=== PATIENT | male | born 1960 | race African-American/Black ===

== ENCOUNTER 2016-10-19 12:38 | Inpatient (IN) | payer OTHER ==
[~2016-10-19] VITALS: Ht 180.3 cm; Wt 93.7 kg
[~2016-10-19 12:38] MED LIST: AMLO-512 PO; ATOR40TA28 PO; GABA-531 PO; GLYB5 PO; LISI-618 PO; OXYC-165 PO
[2016-10-19] MEDS ORDERED: METF500T4 PO (13:00)
[2016-10-19 13:02] LABS: GLUCOSE,POINT OF CARE 469 MG/DL (70-110)
[2016-10-19] MEDS ORDERED: AMPICILLIN SODIUM/SULBACTAM NA 3 GM in SODIUM CHLORIDE 0.9% 100 ML IV ONE (13:30)
[2016-10-19] MEDS ORDERED: ACETAMINOPHEN 1000 MG/ISO-OSM 100 ML IV ONE (14:00)
[2016-10-19] MEDS ORDERED: INSULIN REGULAR, HUMAN 100 UNITS/ML IVP ONE (14:00)
[2016-10-19] MEDS ORDERED: SODIUM CHLORIDE 0.9% 1,000 ML IV ONE (14:00)
[2016-10-19 14:03] LABS: BASOPHILS % (AUTO) 0.5 % (0.0-2.0); EOSINOPHILS % (AUTO) 0.8 % (1.0-6.0); HEMATOCRIT 45.7 % (41-53); LYMPHOCYTES # (AUTO) 3.1 K/uL (1.0-4.8); LYMPHOCYTES % (AUTO) 26.2 % (22.0-44.0); MEAN CORPUSCULAR HEMOGLOBIN 31.4 pg (26.0-34.0); MEAN CORPUSCULAR HGB CONC 32.8 G/dL (31.0-37.0); MEAN CORPUSCULAR VOLUME 96 fL (80-100); MONOCYTES # (AUTO) 0.8 K/uL (0.1-1.0); MONOCYTES % (AUTO) 6.8 % (2.0-9.0); NEUTROPHILS # (AUTO) 7.8 K/uL (1.8-7.7); NEUTROPHILS % (AUTO) 65.7 % (40.0-70.0); PLATELET COUNT (AUTO) 242 K/uL (150-450); RED BLOOD CELL COUNT(AUTO) 4.77 MIL/uL (4.50-5.90); RED CELL DISTRIBUTION WIDTH 13.8 % (11.5-14.5); WHITE BLOOD COUNT (AUTO) 11.9 K/uL (4.5-11.0)
[2016-10-19 14:12] LABS: ALBUMIN 2.8 g/dL (3.4-5.0); BILIRUBIN,TOTAL 0.2 mg/dL (0.1-1.0); CALCIUM, TOTAL 9.1 mg/dL (8.8-10.5); CREATININE 1.64 mg/dL (0.60-1.30); POTASSIUM 4.5 mmol/L (3.5-5.1); TOTAL PROTEIN, SERUM 7.3 g/dL (6.4-8.2)
[2016-10-19] MEDS ORDERED: ACETAMINOPHEN 325 MG TABLET PO PRN ×2 (15:30→19:30)
[2016-10-19] MEDS ORDERED: INSULIN REGULAR, HUMAN 100 UNITS/ML SQ PRN (15:30)
[2016-10-19] MEDS ORDERED: ONDANSETRON HCL 4 MG/2 ML VIAL IVP PRN ×2 (15:30→19:30)
[2016-10-19] MEDS ORDERED: DEXTROSE 50%-WATER 25 GM/50 ML SYRINGE IVP PRN ×2 (15:30→19:30)
[2016-10-19 15:32] LABS: GLUCOSE,POINT OF CARE 219 MG/DL (70-110)
[2016-10-19 16:27] LABS: GLUCOSE,POINT OF CARE 171 MG/DL (70-110)
[2016-10-19 16:49] VITALS: BP 148/87
[2016-10-19 19:26] VITALS: BP 143/89
[2016-10-19] MEDS ORDERED: ALBUTEROL SULFATE 2.5 MG/0.5 ML NEB SOLUTION NEB PRN (19:30)
[2016-10-19] MEDS ORDERED: MORPHINE SULFATE 2 MG/ML SYRINGE IVP PRN (19:30)
[2016-10-19] MEDS ORDERED: MAGNESIUM HYDROXIDE SUSPENSION 30 ML UDCUP PO PRN (19:30)
[2016-10-19] MEDS ORDERED: BISACODYL 10 MG RECTAL RECTAL SUPPOSITORY PR PRN (19:30)
[2016-10-19] MEDS ORDERED: IPRATROPIUM BROMIDE 0.5 MG/2.5 ML NEB SOLUTION NEB PRN (19:30)
[2016-10-19] MEDS ORDERED: ZOLPIDEM TARTRATE 5 MG TABLET PO PRN (19:30)
[2016-10-19] MEDS ORDERED: SODIUM CHLORIDE 0.9% 500 ML IV ONE (20:18)
[2016-10-19] MEDS: DOCUSATE SODIUM 100 MG CAPSULE PO SCH (20:26)
[2016-10-19] MEDS: PIPERACILLIN/TAZO 3.375 GM/D5W 50 ML IV SCH (20:26)
[2016-10-19] MEDS: HYDROCODONE/ACETAMINOPHEN 5-325 MG TABLET PO PRN (20:27)
[2016-10-19] MEDS: INSULIN ASPART 100 UNITS/ML SQ PRN (20:30)
[2016-10-19] MEDS: INSULIN DETEMIR 100 UNITS/ML SQ SCH (20:30)
[2016-10-19 20:52] LABS: GLUCOSE COMMENT 1 Received Meds; GLUCOSE,POINT OF CARE 190 MG/DL (70-110)
[2016-10-19 23:02] VITALS: BP 140/88
[2016-10-20] MEDS ORDERED: HEPARIN SODIUM,PORCINE 5,000 UNITS/ML VIAL SQ SCH
[2016-10-20] MEDS: PIPERACILLIN/TAZO 3.375 GM/D5W 50 ML IV SCH ×2 (02:04→09:00)
[2016-10-20 04:14] VITALS: BP 138/70
[2016-10-20] MEDS: INSULIN ASPART 100 UNITS/ML SQ PRN ×4 (05:51→20:09)
[2016-10-20 05:57] LABS: GLUCOSE COMMENT 1 Received Meds; GLUCOSE,POINT OF CARE 174 MG/DL (70-110)
[2016-10-20 07:25] VITALS: BP 143/84
[2016-10-20] MEDS: OXYGEN THERAPY IH SCH (08:00)
[2016-10-20] MEDS: PANTOPRAZOLE SODIUM 40 MG/VIAL IVP SCH (08:09)
[2016-10-20] MEDS: DOCUSATE SODIUM 100 MG CAPSULE PO SCH ×2 (08:15→19:55)
[2016-10-20] MEDS ORDERED: SODIUM CHLORIDE 0.9% 1,000 ML IV ONE ×4 (08:30→09:45)
[2016-10-20] MEDS ORDERED: LIDOCAINE HCL/PF 1% 30 ML VIAL ONE (09:07)
[2016-10-20] MEDS ORDERED: BUPIVACAINE HCL/PF 0.5% 30 ML VIAL ONE (09:08)
[2016-10-20] MEDS ORDERED: BACITRACIN 50,000 UNITS/VIAL ONE ×2 (09:20→09:45)
[2016-10-20] MEDS ORDERED: SODIUM CHLORIDE 0.9% 10 ML ONE ×2 (09:20→09:45)
[2016-10-20] MEDS ORDERED: MEPERIDINE-PF 25 MG/ML SYRINGE IVP PRN (09:30)
[2016-10-20] MEDS ORDERED: HYDROmorphone 2 MG/ML SYRINGE IVP PRN (09:30)
[2016-10-20] MEDS ORDERED: FentaNYL CITRATE-PF 100 MCG/2 ML VIAL IVP PRN (09:30)
[2016-10-20] MEDS ORDERED: OxyCODONE HCL/ACETAMINOPHEN 5-325 MG TABLET PO PRN (10:00)
[2016-10-20 10:58] VITALS: BP 127/78
[2016-10-20] MEDS: HYDROCODONE/ACETAMINOPHEN 5-325 MG TABLET PO PRN ×2 (14:46→19:56)
[2016-10-20 15:15] VITALS: BP 143/69
[2016-10-20] MEDS: GABAPENTIN 300 MG CAPSULE PO SCH ×2 (16:30→19:55)
[2016-10-20 17:32] LABS: GLUCOSE,POINT OF CARE 183 MG/DL (70-110)
[2016-10-20 17:37] LABS: GLUCOSE COMMENT 1 Received Meds; GLUCOSE,POINT OF CARE 244 MG/DL (70-110)
[2016-10-20] MEDS: ATORVASTATIN CALCIUM 40 MG TABLET PO SCH (19:55)
[2016-10-20] MEDS: INSULIN DETEMIR 100 UNITS/ML SQ SCH (20:10)
[2016-10-20 20:57] LABS: GLUCOSE COMMENT 1 Received Meds; GLUCOSE,POINT OF CARE 187 MG/DL (70-110)
[2016-10-20 21:17] VITALS: BP 152/99
[2016-10-20] MEDS ORDERED: FentaNYL CITRATE-PF 100 MCG/2 ML VIAL IVP ONE (23:08)
[2016-10-20] MEDS ORDERED: LIDOCAINE HCL/PF 2% 5 ML VIAL IM ONE (23:08)
[2016-10-20] MEDS ORDERED: MIDAZOLAM HCL 2 MG/2 ML VIAL IVP ONE (23:08)
[2016-10-20] MEDS ORDERED: ONDANSETRON HCL 4 MG/2 ML VIAL IVP ONE (23:08)
[2016-10-20] MEDS ORDERED: PROPOFOL 1% 20 ML VIAL IVP ONE (23:08)
[2016-10-20] MEDS ORDERED: EPHEDrine SULFATE 50 MG/ML VIAL IM ONE (23:08)
[2016-10-20] MEDS ORDERED: PHENYLEPHRINE HCL 10 MG/ML VIAL IVP ONE (23:08)
[2016-10-21 00:03] VITALS: BP 112/57
[2016-10-21 04:38] VITALS: BP 137/66
[2016-10-21] MEDS: INSULIN ASPART 100 UNITS/ML SQ PRN ×3 (05:46→20:25)
[2016-10-21 05:56] LABS: GLUCOSE COMMENT 1 Received Meds; GLUCOSE,POINT OF CARE 161 MG/DL (70-110)
[2016-10-21 06:11] LABS: BASOPHILS % (AUTO) 0.7 % (0.0-2.0); EOSINOPHILS % (AUTO) 0.7 % (1.0-6.0); HEMATOCRIT 38.4 % (41-53); HEMOGLOBIN 12.7 g/dL (13.5-17.5); LYMPHOCYTES # (AUTO) 3.1 K/uL (1.0-4.8); LYMPHOCYTES % (AUTO) 22.8 % (22.0-44.0); MEAN CORPUSCULAR HEMOGLOBIN 31.8 pg (26.0-34.0); MEAN CORPUSCULAR VOLUME 96 fL (80-100); MONOCYTES # (AUTO) 1.3 K/uL (0.1-1.0); MONOCYTES % (AUTO) 9.4 % (2.0-9.0); NEUTROPHILS # (AUTO) 8.9 K/uL (1.8-7.7); NEUTROPHILS % (AUTO) 66.4 % (40.0-70.0); PLATELET COUNT (AUTO) 215 K/uL (150-450); RED BLOOD CELL COUNT(AUTO) 3.99 MIL/uL (4.50-5.90); RED CELL DISTRIBUTION WIDTH 13.6 % (11.5-14.5); WHITE BLOOD COUNT (AUTO) 13.4 K/uL (4.5-11.0)
[2016-10-21 06:20] LABS: CALCIUM, TOTAL 8.1 mg/dL (8.8-10.5); CREATININE 1.59 mg/dL (0.60-1.30); POTASSIUM 4.1 mmol/L (3.5-5.1)
[2016-10-21 07:20] VITALS: BP 144/73
[2016-10-21] MEDS: PANTOPRAZOLE SODIUM 40 MG/VIAL IVP SCH (08:31)
[2016-10-21] MEDS: HYDROCODONE/ACETAMINOPHEN 5-325 MG TABLET PO PRN (08:32)
[2016-10-21] MEDS: LISINOPRIL 20 MG TABLET PO SCH (08:32)
[2016-10-21] MEDS: MetFORMIN HCL 500 MG TABLET PO SCH (08:32)
[2016-10-21] MEDS: GABAPENTIN 300 MG CAPSULE PO SCH ×3 (08:32→20:25)
[2016-10-21] MEDS: DOCUSATE SODIUM 100 MG CAPSULE PO SCH ×2 (08:33→20:25)
[2016-10-21 11:32] VITALS: BP 107/67
[2016-10-21 12:07] LABS: GLUCOSE,POINT OF CARE 149 MG/DL (70-110)
[2016-10-21] MEDS: PIPERACILLIN/TAZO 3.375 GM/D5W 50 ML IV SCH ×2 (15:22→20:27)
[2016-10-21 17:52] LABS: GLUCOSE,POINT OF CARE 125 MG/DL (70-110)
[2016-10-21 19:54] VITALS: BP 137/87
[2016-10-21] MEDS: ATORVASTATIN CALCIUM 40 MG TABLET PO SCH (20:25)
[2016-10-21] MEDS: INSULIN DETEMIR 100 UNITS/ML SQ SCH (20:26)
[2016-10-21 21:26] LABS: GLUCOSE COMMENT 1 Received Meds; GLUCOSE,POINT OF CARE 250 MG/DL (70-110)
[2016-10-21 23:28] VITALS: BP 154/66
[2016-10-22] MEDS: HYDROCODONE/ACETAMINOPHEN 5-325 MG TABLET PO PRN ×3 (01:24→19:28)
[2016-10-22] MEDS: PIPERACILLIN/TAZO 3.375 GM/D5W 50 ML IV SCH ×4 (02:59→21:00)
[2016-10-22 04:53] VITALS: BP 126/62
[2016-10-22 05:57] LABS: GLUCOSE COMMENT 1 Received Meds; GLUCOSE,POINT OF CARE 248 MG/DL (70-110)
[2016-10-22] MEDS: INSULIN ASPART 100 UNITS/ML SQ PRN ×3 (06:05→16:56)
[2016-10-22 07:25] VITALS: BP 104/54
[2016-10-22] MEDS: MetFORMIN HCL 500 MG TABLET PO SCH (08:07)
[2016-10-22] MEDS: LISINOPRIL 20 MG TABLET PO SCH (08:07)
[2016-10-22] MEDS: DOCUSATE SODIUM 100 MG CAPSULE PO SCH ×2 (08:08→19:48)
[2016-10-22] MEDS: PANTOPRAZOLE SODIUM 40 MG/VIAL IVP SCH (08:08)
[2016-10-22] MEDS: GABAPENTIN 300 MG CAPSULE PO SCH ×3 (08:08→19:48)
[2016-10-22 11:39] VITALS: BP 108/74
[2016-10-22 12:22] LABS: GLUCOSE COMMENT 1 Received Meds; GLUCOSE,POINT OF CARE 173 MG/DL (70-110)
[2016-10-22 16:09] VITALS: BP 108/77
[2016-10-22 17:07] LABS: GLUCOSE COMMENT 1 Received Meds; GLUCOSE,POINT OF CARE 168 MG/DL (70-110)
[2016-10-22] MEDS: ATORVASTATIN CALCIUM 40 MG TABLET PO SCH (19:48)
[2016-10-22] MEDS: OXYGEN THERAPY IH SCH (20:00)
[2016-10-22 20:13] VITALS: BP 139/91
[2016-10-22] MEDS: INSULIN DETEMIR 100 UNITS/ML SQ SCH (21:00)
[2016-10-22 21:22] LABS: GLUCOSE,POINT OF CARE 136 MG/DL (70-110)
[2016-10-22 23:23] VITALS: BP 138/88
[2016-10-23] MEDS: PIPERACILLIN/TAZO 3.375 GM/D5W 50 ML IV SCH (03:00)
[2016-10-23] MEDS: INSULIN ASPART 100 UNITS/ML SQ PRN ×4 (05:50→21:08)
[2016-10-23 05:53] LABS: GLUCOSE COMMENT 1 Received Meds; GLUCOSE,POINT OF CARE 195 MG/DL (70-110)
[2016-10-23 07:57] VITALS: BP 141/68
[2016-10-23] MEDS: GABAPENTIN 300 MG CAPSULE PO SCH ×3 (08:52→19:59)
[2016-10-23] MEDS: MetFORMIN HCL 500 MG TABLET PO SCH (08:52)
[2016-10-23] MEDS: LISINOPRIL 20 MG TABLET PO SCH (08:52)
[2016-10-23] MEDS: DOCUSATE SODIUM 100 MG CAPSULE PO SCH ×2 (08:53→19:59)
[2016-10-23] MEDS: HYDROCODONE/ACETAMINOPHEN 5-325 MG TABLET PO PRN ×2 (08:56→20:01)
[2016-10-23] MEDS: PANTOPRAZOLE SODIUM 40 MG/VIAL IVP SCH (09:00)
[2016-10-23 10:05] LABS: INR 0.9 (0.9-1.1); PROTHROMBIN TIME 9.5 SEC (9.4-11.6)
[2016-10-23 11:58] VITALS: BP 115/74
[2016-10-23 12:17] LABS: GLUCOSE COMMENT 1 Received Meds; GLUCOSE,POINT OF CARE 163 MG/DL (70-110)
[2016-10-23 15:57] VITALS: BP 148/84
[2016-10-23] MEDS ORDERED: HEPARIN SODIUM 1000 UNITS/NS 500 ML ONE (16:29)
[2016-10-23 17:47] LABS: GLUCOSE,POINT OF CARE 126 MG/DL (70-110)
[2016-10-23] MEDS: CefTRIAXone 1 GM/DEXTROSE 50 ML IV SCH (18:20)
[2016-10-23] MEDS: ATORVASTATIN CALCIUM 40 MG TABLET PO SCH (19:59)
[2016-10-23] MEDS: VANCOMYCIN HCL 1 GM/D5% WATER 200 ML IV SCH (19:59)
[2016-10-23] MEDS: INSULIN DETEMIR 100 UNITS/ML SQ SCH (21:09)
[2016-10-23 21:16] VITALS: BP 155/92
[2016-10-23 23:12] LABS: GLUCOSE COMMENT 1 Received Meds; GLUCOSE,POINT OF CARE 184 MG/DL (70-110)
[2016-10-23 23:32] VITALS: BP 157/97
[2016-10-24] MEDS: HYDROCODONE/ACETAMINOPHEN 5-325 MG TABLET PO PRN ×3 (02:36→21:22)
[2016-10-24 04:06] VITALS: BP 140/77
[2016-10-24 05:12] LABS: GLUCOSE COMMENT 1 Received Meds; GLUCOSE,POINT OF CARE 214 MG/DL (70-110)
[2016-10-24] MEDS: INSULIN ASPART 100 UNITS/ML SQ PRN ×3 (05:44→21:20)
[2016-10-24 06:20] LABS: CALCIUM, TOTAL 8.7 mg/dL (8.8-10.5); CREATININE 1.53 mg/dL (0.60-1.30); POTASSIUM 4.2 mmol/L (3.5-5.1)
[2016-10-24 07:39] VITALS: BP 143/87
[2016-10-24] MEDS: PANTOPRAZOLE SODIUM 40 MG/VIAL IVP SCH (09:23)
[2016-10-24] MEDS: MetFORMIN HCL 500 MG TABLET PO SCH (09:23)
[2016-10-24] MEDS: VANCOMYCIN HCL 1 GM/D5% WATER 200 ML IV SCH ×2 (09:23→21:18)
[2016-10-24] MEDS: DOCUSATE SODIUM 100 MG CAPSULE PO SCH ×2 (09:24→21:18)
[2016-10-24] MEDS: GABAPENTIN 300 MG CAPSULE PO SCH ×3 (09:24→21:18)
[2016-10-24] MEDS: LISINOPRIL 20 MG TABLET PO SCH (09:24)
[2016-10-24 11:32] VITALS: BP 148/92
[2016-10-24 12:36] LABS: GLUCOSE,POINT OF CARE 200 MG/DL (70-110)
[2016-10-24 15:47] VITALS: BP 144/103
[2016-10-24] MEDS: CefTRIAXone 1 GM/DEXTROSE 50 ML IV SCH (16:47)
[2016-10-24 17:42] LABS: GLUCOSE,POINT OF CARE 127 MG/DL (70-110)
[2016-10-24] MEDS: ATORVASTATIN CALCIUM 40 MG TABLET PO SCH (21:18)
[2016-10-24] MEDS: INSULIN DETEMIR 100 UNITS/ML SQ SCH (21:19)
[2016-10-24 21:36] LABS: GLUCOSE COMMENT 1 Received Meds; GLUCOSE,POINT OF CARE 144 MG/DL (70-110)
[2016-10-24] MEDS ORDERED: AmLODIPine BESYLATE 5 MG TABLET PO ONE (22:00)
[2016-10-25 00:06] VITALS: BP 147/90
[2016-10-25 01:21] LABS: BASOPHILS # (AUTO) 0.11 K/uL (0.00-0.20); BASOPHILS % (AUTO) 0.8 % (0.0-2.0); EOSINOPHILS # (AUTO) 0.27 K/uL (0.00-0.70); EOSINOPHILS % (AUTO) 1.88 % (1.0-6.0); HEMOGLOBIN 13.3 g/dL (13.5-17.5); LYMPHOCYTES # (AUTO) 3.8 K/uL (1.0-4.8); LYMPHOCYTES % (AUTO) 26.8 % (22.0-44.0); MEAN CORPUSCULAR HEMOGLOBIN 31.8 pg (26.0-34.0); MEAN CORPUSCULAR HGB CONC 33.3 G/dL (31.0-37.0); MEAN CORPUSCULAR VOLUME 95 fL (80-100); MONOCYTES # (AUTO) 0.9 K/uL (0.1-1.0); MONOCYTES % (AUTO) 6.6 % (2.0-9.0); NEUTROPHILS # (AUTO) 9.1 K/uL (1.8-7.7); PLATELET COUNT (AUTO) 248 K/uL (150-450); RED BLOOD CELL COUNT(AUTO) 4.19 MIL/uL (4.50-5.90); RED CELL DISTRIBUTION WIDTH 13.6 % (11.5-14.5); WHITE BLOOD COUNT (AUTO) 14.2 K/uL (4.5-11.0)
[2016-10-25 01:27] LABS: CREATININE 1.51 mg/dL (0.60-1.30); POTASSIUM 4.1 mmol/L (3.5-5.1)
[2016-10-25 01:34] LABS: BILIRUBIN,TOTAL 0.2 mg/dL (0.1-1.0); TOTAL PROTEIN, SERUM 7.2 g/dL (6.4-8.2)
[2016-10-25 01:35] LABS: ALBUMIN 2.8 g/dL (3.4-5.0)
[2016-10-25 05:51] VITALS: BP 132/99
[2016-10-25 06:02] LABS: GLUCOSE,POINT OF CARE 131 MG/DL (70-110)
[2016-10-25 07:23] VITALS: BP 155/91
[2016-10-25] MEDS: OXYGEN THERAPY IH SCH (07:53)
[2016-10-25] MEDS: VANCOMYCIN HCL 1 GM/D5% WATER 200 ML IV SCH (07:58)
[2016-10-25] MEDS: HYDROCODONE/ACETAMINOPHEN 5-325 MG TABLET PO PRN (07:59)
[2016-10-25] MEDS: MetFORMIN HCL 500 MG TABLET PO SCH (08:00)
[2016-10-25] MEDS: DOCUSATE SODIUM 100 MG CAPSULE PO SCH (08:00)
[2016-10-25] MEDS: GABAPENTIN 300 MG CAPSULE PO SCH (08:00)
[2016-10-25] MEDS: LISINOPRIL 20 MG TABLET PO SCH (08:00)
[2016-10-25] MEDS: PANTOPRAZOLE SODIUM 40 MG/VIAL IVP SCH (08:03)
[2016-10-25 08:10] LABS: CALCIUM, TOTAL 8.9 mg/dL (8.8-10.5); CREATININE 1.46 mg/dL (0.60-1.30); POTASSIUM 4.4 mmol/L (3.5-5.1)
[2016-10-25] MEDS ORDERED: AmLODIPine BESYLATE 10 MG TABLET PO SCH (09:00)
[2016-10-25] MEDS ORDERED: AMLO-512 PO (11:13)
[2016-10-25] MEDS ORDERED: CEFX1I IM (11:14)
[2016-10-25] MEDS ORDERED: CEFX1I IV (11:14)
[2016-10-25] MEDS ORDERED: INSLAN SQ (11:14)
[2016-10-25 11:45] VITALS: BP 131/83
[2016-10-25 11:52] LABS: GLUCOSE COMMENT 1 Received Meds; GLUCOSE,POINT OF CARE 185 MG/DL (70-110)
[2016-10-25] MEDS: INSULIN ASPART 100 UNITS/ML SQ PRN (11:53)
[2016-10-25] MEDS: CefTRIAXone 1 GM/DEXTROSE 50 ML IV SCH (13:02)
[2016-10-25] MEDS ORDERED: SODIUM CHLORIDE 0.9% 50 ML ONE (13:05)
== END 2016-10-25 14:02 | disposition home health service (06) | DRG 710 ==
LOC: EMS 12:40 → 6N 15:39
PROVIDERS: ADMIT Hospitalist; ATTEND Hospitalist
PROC: 0QBP0ZZ Excision of Left Metatarsal, Open Approach (ICD-10-PCS; 2016-10-20)
PROC: 0QBP0ZX Excision of Left Metatarsal, Open Approach, Diagnostic (ICD-10-PCS; 2016-10-20)
PROC: 02HV33Z Insertion of Infusion Device into Superior Vena Cava, Percutaneous Approach (ICD-10-PCS; principal; 2016-10-23)
PROC: B518ZZA Fluoroscopy of Superior Vena Cava, Guidance (ICD-10-PCS; 2016-10-23)
PROC: B548ZZA Ultrasonography of Superior Vena Cava, Guidance (ICD-10-PCS; 2016-10-23)
DX: A41.9 Sepsis, unspecified organism (principal); E11.40 Type 2 diabetes mellitus with diabetic neuropathy, unspecified; E11.22 Type 2 diabetes mellitus with diabetic chronic kidney disease; E44.0 Moderate protein-calorie malnutrition; E11.621 Type 2 diabetes mellitus with foot ulcer; L97.529 Non-pressure chronic ulcer of other part of left foot with unspecified severity; E11.65 Type 2 diabetes mellitus with hyperglycemia; L02.612 Cutaneous abscess of left foot; N18.9 Chronic kidney disease, unspecified; E78.00 Pure hypercholesterolemia, unspecified; E78.5 Hyperlipidemia, unspecified; I12.9 Hypertensive chronic kidney disease with stage 1 through stage 4 chronic kidney disease, or unspecified chronic kidney disease; B96.89 Other specified bacterial agents as the cause of diseases classified elsewhere; F17.210 Nicotine dependence, cigarettes, uncomplicated; F12.90 Cannabis use, unspecified, uncomplicated; Z79.899 Other long term (current) drug therapy; Z79.84 Long term (current) use of oral hypoglycemic drugs; Z68.28 Body mass index [BMI] 28.0-28.9, adult; Z89.411 Acquired absence of right great toe; Z98.890 Other specified postprocedural states; N18.3 Chronic kidney disease, stage 3 (moderate)
CPT/HCPCS: 36245; 36569; 76937; 82962; 83036; 87070; 87205; 93005; 96365; 96368; 96374; 99285; C9113; J0131; J0295; J0696; J1644; J1815; J2250; J2270; J2370; J2405; J2543; J2704; J3010; J3370; J3490; J7030; J7040; J7050

== ENCOUNTER 2016-11-22 19:17 | Emergency (ER) | payer OTHER ==
[~2016-11-22] VITALS: Ht 180.3 cm; Wt 97.7 kg
[~2016-11-22 19:17] MED LIST changes: +CEFX1I IV; -GLYB5 PO; +INSLAN SQ; +METF500T4 PO
[2016-11-22 21:06] LABS: BASOPHILS % (AUTO) 0.2 % (0.0-2.0); EOSINOPHILS % (AUTO) 0.2 % (1.0-6.0); HEMATOCRIT 44.1 % (41-53); HEMOGLOBIN 14.3 g/dL (13.5-17.5); LYMPHOCYTES # (AUTO) 2.6 K/uL (1.0-4.8); MEAN CORPUSCULAR HEMOGLOBIN 30.7 pg (26.0-34.0); MEAN CORPUSCULAR HGB CONC 32.5 G/dL (31.0-37.0); MEAN CORPUSCULAR VOLUME 94 fL (80-100); MONOCYTES # (AUTO) 1.2 K/uL (0.1-1.0); MONOCYTES % (AUTO) 6.9 % (2.0-9.0); NEUTROPHILS # (AUTO) 13.6 K/uL (1.8-7.7); NEUTROPHILS % (AUTO) 77.7 % (40.0-70.0); PLATELET COUNT (AUTO) 199 K/uL (150-450); RED BLOOD CELL COUNT(AUTO) 4.67 MIL/uL (4.50-5.90); RED CELL DISTRIBUTION WIDTH 13.1 % (11.5-14.5); WHITE BLOOD COUNT (AUTO) 17.6 K/uL (4.5-11.0)
[2016-11-22 21:15] LABS: ANION GAP 12 mmol/L (8-16); CALCIUM, TOTAL 9.2 mg/dL (8.8-10.5); CARBON DIOXIDE 24 mmol/L (22-29); CHLORIDE 100 mmol/L (98-107); CREATININE 1.87 mg/dL (0.60-1.30); GLOMERULAR FILTR. RATE CALC 45 mL/min (>60); POTASSIUM 4.5 mmol/L (3.5-5.1); PROTHROMBIN TIME 10.1 SEC (9.4-11.6); SODIUM SERUM 136 mmol/L (136-145); UREA NITROGEN, BLOOD 19 mg/dL (7-18)
[2016-11-22 21:22] LABS: APPEARANCE,URINE CLEAR (CLEAR); GLUCOSE, URINE (UA) 250 mg/dL (NEGATIVE); KETONES,URINE NEGATIVE (NEGATIVE); LEUKOCYTE ESTERASE ,URINE NEGATIVE (NEGATIVE); OCCULT BLOOD,URINE SMALL (NEGATIVE); PH,URINE 5.5 (5.0-8.0); PROTEIN,URINE SEE CONFIRM (NEGATIVE)
[2016-11-22 21:47] LABS: ADD UA MICROSCOPIC YES
[2016-11-22 21:47] LABS: ALANINE AMINOTRANSFERASE 18 U/L (12-78); ALBUMIN 3.1 g/dL (3.4-5.0); ASPARTATE AMINOTRANSFERASE 13 U/L (15-37); BILIRUBIN,TOTAL 0.5 mg/dL (0.1-1.0); CREATINE KINASE, TOTAL 102 U/L (39-308); TOTAL PROTEIN, SERUM 7.7 g/dL (6.4-8.2)
[2016-11-22 21:49] LABS: COARSE GRANULAR CASTS,URINE 0-2 /LPF (None Seen); FINE GRANULAR CASTS,URINE 0-2 /LPF (None Seen); HYALINE CASTS, URINE 0-2 /LPF (None Seen); SQUAMOUS EPITHELIAL CELL,UR Few /LPF (None Seen); SULFOSALICYLIC ACID,URINE 4+ (Negative)
[2016-11-22 21:56] LABS: B-TYPE NATRIURETIC PEPTIDE 151 pg/mL (0-100)
[2016-11-22] MEDS ORDERED: SODIUM CHLORIDE 0.9% 1,000 ML IV ONE (22:15)
[2016-11-22] MEDS ORDERED: MORPHINE SULFATE 4 MG/ML SYRINGE IM ONE (22:45)
[2016-11-22 23:17] VITALS: BP 144/77
== END 2016-11-23 00:12 | disposition home or self-care (01) ==
LOC: EMS 19:21
DX: E11.40 Type 2 diabetes mellitus with diabetic neuropathy, unspecified (principal); E78.00 Pure hypercholesterolemia, unspecified; I10 Essential (primary) hypertension; F17.210 Nicotine dependence, cigarettes, uncomplicated; F12.90 Cannabis use, unspecified, uncomplicated; Z79.4 Long term (current) use of insulin
CPT/HCPCS: 36415; 71010; 80053; 80307; 81001; 81002; 82550; 82553; 82962; 83880; 84484; 85025; 85610; 93005; 96360; 96372; 99285; G0480; J2270; J7030

== ENCOUNTER 2016-11-25 18:02 | Inpatient (IN) | payer OTHER ==
[~2016-11-25] VITALS: Ht 182.9 cm; Wt 89.6 kg
[2016-11-25 18:32] LABS: GLUCOSE,POINT OF CARE 250 MG/DL (70-110)
[2016-11-25] MEDS ORDERED: HYDROCODONE/ACETAMINOPHEN 10-325 MG TABLET PO ONE (19:30)
[2016-11-25] MEDS ORDERED: KETOROLAC TROMETHAMINE 60 MG/2 ML VIAL IM ONE (20:30)
[2016-11-25 20:41] LABS: BASOPHILS % (AUTO) 0.2 % (0.0-2.0); EOSINOPHILS % (AUTO) 0.7 % (1.0-6.0); HEMATOCRIT 39.6 % (41-53); HEMOGLOBIN 12.8 g/dL (13.5-17.5); LYMPHOCYTES # (AUTO) 1.9 K/uL (1.0-4.8); LYMPHOCYTES % (AUTO) 11.8 % (22.0-44.0); MEAN CORPUSCULAR HEMOGLOBIN 30.4 pg (26.0-34.0); MEAN CORPUSCULAR HGB CONC 32.4 G/dL (31.0-37.0); MEAN CORPUSCULAR VOLUME 94 fL (80-100); MONOCYTES # (AUTO) 1.4 K/uL (0.1-1.0); MONOCYTES % (AUTO) 8.6 % (2.0-9.0); NEUTROPHILS % (AUTO) 78.7 % (40.0-70.0); PLATELET COUNT (AUTO) 233 K/uL (150-450); RED BLOOD CELL COUNT(AUTO) 4.22 MIL/uL (4.50-5.90); RED CELL DISTRIBUTION WIDTH 13.4 % (11.5-14.5); WHITE BLOOD COUNT (AUTO) 16.5 K/uL (4.5-11.0)
[2016-11-25 20:48] LABS: ADD UA MICROSCOPIC YES; APPEARANCE,URINE CLOUDY (CLEAR); GLUCOSE, URINE (UA) >=1000 mg/dL (NEGATIVE); KETONES,URINE NEGATIVE (NEGATIVE); LEUKOCYTE ESTERASE ,URINE NEGATIVE (NEGATIVE); OCCULT BLOOD,URINE TRACE (NEGATIVE); PH,URINE 5.5 (5.0-8.0); PROTEIN,URINE SEE CONFIRM (NEGATIVE)
[2016-11-25 20:51] LABS: SULFOSALICYLIC ACID,URINE 2+ (Negative)
[2016-11-25 20:52] LABS: HYALINE CASTS, URINE 0-2 /LPF (None Seen); SQUAMOUS EPITHELIAL CELL,UR Rare /LPF (None Seen)
[2016-11-25 20:53] LABS: CALCIUM, TOTAL 8.8 mg/dL (8.8-10.5); CREATININE 2.19 mg/dL (0.60-1.30); POTASSIUM 4.1 mmol/L (3.5-5.1)
[2016-11-25 20:53] LABS: COARSE GRANULAR CASTS,URINE 0-2 /LPF (None Seen)
[2016-11-25 20:58] LABS: BILIRUBIN,TOTAL 0.5 mg/dL (0.1-1.0); TOTAL PROTEIN, SERUM 7.2 g/dL (6.4-8.2)
[2016-11-25 21:09] LABS: ALBUMIN 2.6 g/dL (3.4-5.0)
[2016-11-25] MEDS ORDERED: HYDROCODONE/ACETAMINOPHEN 5-325 MG TABLET PO PRN (21:45)
[2016-11-25] MEDS ORDERED: ONDANSETRON HCL 4 MG/2 ML VIAL IVP PRN (21:45)
[2016-11-25] MEDS ORDERED: ACETAMINOPHEN 325 MG TABLET PO PRN (21:45)
[2016-11-25] MEDS ORDERED: 0.9% SODIUM CHLORIDE 10 ML SYRINGE IVP PRN (21:45)
[2016-11-25 23:12] VITALS: BP 116/75
[2016-11-26] MEDS ORDERED: DEXTROSE 50%-WATER 25 GM/50 ML SYRINGE IVP PRN (01:15)
[2016-11-26] MEDS ORDERED: IPRATROPIUM BROMIDE 0.5 MG/2.5 ML NEB SOLUTION NEB PRN (01:15)
[2016-11-26] MEDS ORDERED: MAGNESIUM HYDROXIDE SUSPENSION 30 ML UDCUP PO PRN (01:15)
[2016-11-26] MEDS ORDERED: ACETAMINOPHEN 325 MG TABLET PO PRN (01:15)
[2016-11-26] MEDS ORDERED: ZOLPIDEM TARTRATE 5 MG TABLET PO PRN (01:15)
[2016-11-26] MEDS ORDERED: BISACODYL 10 MG RECTAL RECTAL SUPPOSITORY PR PRN (01:15)
[2016-11-26] MEDS ORDERED: ALBUTEROL SULFATE 2.5 MG/0.5 ML NEB SOLUTION NEB PRN (01:15)
[2016-11-26] MEDS ORDERED: ONDANSETRON HCL 4 MG/2 ML VIAL IVP PRN (01:15)
[2016-11-26] MEDS ORDERED: MORPHINE SULFATE 2 MG/ML SYRINGE IVP PRN (01:30)
[2016-11-26 04:55] VITALS: BP 102/55
[2016-11-26 05:47] LABS: GLUCOSE COMMENT 1 Received Meds; GLUCOSE,POINT OF CARE 225 MG/DL (70-110)
[2016-11-26] MEDS: INSULIN ASPART 100 UNITS/ML SQ PRN ×4 (06:00→20:09)
[2016-11-26 06:17] LABS: GLUCOSE COMMENT 1 Received Meds; GLUCOSE,POINT OF CARE 348 MG/DL (70-110)
[2016-11-26 07:30] VITALS: BP 120/69
[2016-11-26] MEDS: PANTOPRAZOLE SODIUM 40 MG/VIAL IVP SCH (08:00)
[2016-11-26] MEDS: DOCUSATE SODIUM 100 MG CAPSULE PO SCH ×2 (08:00→20:02)
[2016-11-26] MEDS: HEPARIN SODIUM,PORCINE 5,000 UNITS/ML VIAL SQ SCH ×3 (08:01→23:24)
[2016-11-26] MEDS ORDERED: AmLODIPine BESYLATE 10 MG TABLET PO SCH (09:00)
[2016-11-26] MEDS ORDERED: LISINOPRIL 20 MG TABLET PO SCH (09:00)
[2016-11-26] MEDS ORDERED: GABAPENTIN 300 MG CAPSULE PO SCH (09:00)
[2016-11-26 11:40] VITALS: BP 126/77
[2016-11-26 12:22] LABS: GLUCOSE,POINT OF CARE 224 MG/DL (70-110)
[2016-11-26] MEDS ORDERED: VANCOMYCIN HCL 1.5 GM in DEXTROSE 5%-WATER 250 ML IV ONE (15:00)
[2016-11-26 15:15] VITALS: BP 147/49
[2016-11-26] MEDS ORDERED: SODIUM CHLORIDE 0.9% 500 ML IV ONE (15:40)
[2016-11-26] MEDS: GABAPENTIN 300 MG CAPSULE PO SCH ×2 (16:09→20:13)
[2016-11-26 16:22] LABS: GLUCOSE,POINT OF CARE 215 MG/DL (70-110)
[2016-11-26 19:44] VITALS: BP 140/74
[2016-11-26] MEDS: HYDROCODONE/ACETAMINOPHEN 5-325 MG TABLET PO PRN (20:01)
[2016-11-26] MEDS: ATORVASTATIN CALCIUM 40 MG TABLET PO SCH (20:02)
[2016-11-26 20:22] LABS: GLUCOSE COMMENT 1 Received Meds; GLUCOSE,POINT OF CARE 191 MG/DL (70-110)
[2016-11-26] MEDS ORDERED: INSULIN DETEMIR 100 UNITS/ML SQ SCH (21:00)
[2016-11-26 23:36] VITALS: BP 110/70
[2016-11-27 04:39] VITALS: BP 106/65
[2016-11-27 05:49] LABS: BASOPHILS % (AUTO) 0.6 % (0.0-2.0); EOSINOPHILS % (AUTO) 2.5 % (1.0-6.0); HEMATOCRIT 35.1 % (41-53); HEMOGLOBIN 11.5 g/dL (13.5-17.5); LYMPHOCYTES # (AUTO) 2.8 K/uL (1.0-4.8); LYMPHOCYTES % (AUTO) 21.5 % (22.0-44.0); MEAN CORPUSCULAR HEMOGLOBIN 30.9 pg (26.0-34.0); MEAN CORPUSCULAR HGB CONC 32.8 G/dL (31.0-37.0); MEAN CORPUSCULAR VOLUME 94 fL (80-100); MONOCYTES # (AUTO) 1.3 K/uL (0.1-1.0); MONOCYTES % (AUTO) 9.9 % (2.0-9.0); NEUTROPHILS # (AUTO) 8.7 K/uL (1.8-7.7); NEUTROPHILS % (AUTO) 65.5 % (40.0-70.0); PLATELET COUNT (AUTO) 230 K/uL (150-450); RED BLOOD CELL COUNT(AUTO) 3.73 MIL/uL (4.50-5.90); RED CELL DISTRIBUTION WIDTH 13.5 % (11.5-14.5); WHITE BLOOD COUNT (AUTO) 13.2 K/uL (4.5-11.0)
[2016-11-27 06:06] LABS: CALCIUM, TOTAL 8.6 mg/dL (8.8-10.5); CREATININE 2.16 mg/dL (0.60-1.30); POTASSIUM 3.9 mmol/L (3.5-5.1)
[2016-11-27] MEDS: INSULIN ASPART 100 UNITS/ML SQ PRN ×4 (06:07→19:55)
[2016-11-27 06:23] LABS: GLUCOSE COMMENT 1 Received Meds; GLUCOSE,POINT OF CARE 199 MG/DL (70-110)
[2016-11-27 07:49] VITALS: BP 101/57
[2016-11-27] MEDS ORDERED: VANCOMYCIN HCL 1.25 GM in DEXTROSE 5%-WATER 250 ML IV SCH (08:00)
[2016-11-27] MEDS: DOCUSATE SODIUM 100 MG CAPSULE PO SCH ×2 (08:16→19:55)
[2016-11-27] MEDS: GABAPENTIN 300 MG CAPSULE PO SCH ×3 (08:16→19:55)
[2016-11-27] MEDS: PANTOPRAZOLE SODIUM 40 MG/VIAL IVP SCH (08:16)
[2016-11-27] MEDS: HYDROCODONE/ACETAMINOPHEN 5-325 MG TABLET PO PRN ×2 (08:16→17:58)
[2016-11-27] MEDS: HEPARIN SODIUM,PORCINE 5,000 UNITS/ML VIAL SQ SCH ×3 (08:16→23:14)
[2016-11-27 11:42] VITALS: BP 106/59
[2016-11-27 12:32] LABS: GLUCOSE COMMENT 1 Received Meds; GLUCOSE,POINT OF CARE 252 MG/DL (70-110)
[2016-11-27 16:16] VITALS: BP 143/78
[2016-11-27 17:42] LABS: GLUCOSE,POINT OF CARE 163 MG/DL (70-110)
[2016-11-27 19:30] VITALS: BP 126/95
[2016-11-27] MEDS: INSULIN DETEMIR 100 UNITS/ML SQ SCH (19:53)
[2016-11-27] MEDS: ATORVASTATIN CALCIUM 40 MG TABLET PO SCH (19:55)
[2016-11-27 23:37] VITALS: BP 137/90
[2016-11-28 01:12] LABS: GLUCOSE COMMENT 1 Received Meds; GLUCOSE,POINT OF CARE 152 MG/DL (70-110)
[2016-11-28 05:01] VITALS: BP 119/85
[2016-11-28] MEDS: HYDROCODONE/ACETAMINOPHEN 5-325 MG TABLET PO PRN ×3 (06:13→22:27)
[2016-11-28] MEDS: INSULIN ASPART 100 UNITS/ML SQ PRN ×4 (06:16→20:35)
[2016-11-28 06:28] LABS: GLUCOSE COMMENT 1 Received Meds; GLUCOSE,POINT OF CARE 216 MG/DL (70-110)
[2016-11-28 06:50] LABS: CALCIUM, TOTAL 8.5 mg/dL (8.8-10.5); CREATININE 2.47 mg/dL (0.60-1.30)
[2016-11-28 06:58] LABS: BASOPHILS % (AUTO) 0.5 % (0.0-2.0); HEMATOCRIT 34.8 % (41-53); HEMOGLOBIN 11.2 g/dL (13.5-17.5); LYMPHOCYTES # (AUTO) 3.2 K/uL (1.0-4.8); LYMPHOCYTES % (AUTO) 21.4 % (22.0-44.0); MEAN CORPUSCULAR HEMOGLOBIN 30.6 pg (26.0-34.0); MEAN CORPUSCULAR HGB CONC 32.2 G/dL (31.0-37.0); MEAN CORPUSCULAR VOLUME 95 fL (80-100); MONOCYTES # (AUTO) 1.7 K/uL (0.1-1.0); MONOCYTES % (AUTO) 11.1 % (2.0-9.0); NEUTROPHILS # (AUTO) 9.8 K/uL (1.8-7.7); PLATELET COUNT (AUTO) 272 K/uL (150-450); RED BLOOD CELL COUNT(AUTO) 3.66 MIL/uL (4.50-5.90); RED CELL DISTRIBUTION WIDTH 13.4 % (11.5-14.5); WHITE BLOOD COUNT (AUTO) 15.1 K/uL (4.5-11.0)
[2016-11-28 07:59] VITALS: BP 100/64
[2016-11-28] MEDS ORDERED: VANCOMYCIN HCL 1 GM/D5% WATER 200 ML IV SCH (08:00)
[2016-11-28] MEDS: GABAPENTIN 300 MG CAPSULE PO SCH ×3 (08:44→20:25)
[2016-11-28] MEDS: PANTOPRAZOLE SODIUM 40 MG/VIAL IVP SCH (08:45)
[2016-11-28] MEDS: HEPARIN SODIUM,PORCINE 5,000 UNITS/ML VIAL SQ SCH ×3 (08:45→23:24)
[2016-11-28] MEDS: DOCUSATE SODIUM 100 MG CAPSULE PO SCH ×2 (08:45→22:28)
[2016-11-28 11:34] VITALS: BP 115/71
[2016-11-28] MEDS: SILVER SULFADIAZINE 1% 25 GM CREAM TP SCH (12:44)
[2016-11-28 12:52] LABS: GLUCOSE,POINT OF CARE 210 MG/DL (70-110)
[2016-11-28 17:16] VITALS: BP 153/87
[2016-11-28] MEDS ORDERED: 0.9% SODIUM CHLORIDE 10 ML SYRINGE IVP PRN (19:00)
[2016-11-28 19:38] VITALS: BP 124/85
[2016-11-28 19:53] LABS: GLUCOSE,POINT OF CARE 205 MG/DL (70-110)
[2016-11-28] MEDS: ATORVASTATIN CALCIUM 40 MG TABLET PO SCH (20:24)
[2016-11-28] MEDS: INSULIN DETEMIR 100 UNITS/ML SQ SCH (20:34)
[2016-11-28 20:42] LABS: GLUCOSE COMMENT 1 Received Meds; GLUCOSE,POINT OF CARE 165 MG/DL (70-110)
[2016-11-28] MEDS: CeFAZolin 2 GM/DEXTROSE 50 ML IV SCH (22:28)
[2016-11-29 00:08] VITALS: BP 132/67
[2016-11-29 05:19] VITALS: BP 108/68
[2016-11-29] MEDS: INSULIN ASPART 100 UNITS/ML SQ PRN ×4 (05:32→21:00)
[2016-11-29 05:48] LABS: GLUCOSE COMMENT 1 Received Meds; GLUCOSE,POINT OF CARE 160 MG/DL (70-110)
[2016-11-29 07:20] VITALS: BP 110/55
[2016-11-29 07:34] LABS: BASOPHILS % (AUTO) 0.2 % (0.0-2.0); EOSINOPHILS % (AUTO) 1.3 % (1.0-6.0); HEMATOCRIT 33.9 % (41-53); HEMOGLOBIN 11.2 g/dL (13.5-17.5); LYMPHOCYTES # (AUTO) 3.7 K/uL (1.0-4.8); LYMPHOCYTES % (AUTO) 20.7 % (22.0-44.0); MEAN CORPUSCULAR HEMOGLOBIN 30.6 pg (26.0-34.0); MEAN CORPUSCULAR HGB CONC 32.9 G/dL (31.0-37.0); MEAN CORPUSCULAR VOLUME 93 fL (80-100); MONOCYTES # (AUTO) 1.8 K/uL (0.1-1.0); MONOCYTES % (AUTO) 9.8 % (2.0-9.0); NEUTROPHILS # (AUTO) 12.2 K/uL (1.8-7.7); PLATELET COUNT (AUTO) 308 K/uL (150-450); RED BLOOD CELL COUNT(AUTO) 3.65 MIL/uL (4.50-5.90); RED CELL DISTRIBUTION WIDTH 13.2 % (11.5-14.5); WHITE BLOOD COUNT (AUTO) 17.9 K/uL (4.5-11.0)
[2016-11-29 07:42] LABS: CALCIUM, TOTAL 8.8 mg/dL (8.8-10.5); CREATININE 2.09 mg/dL (0.60-1.30); POTASSIUM 4.2 mmol/L (3.5-5.1)
[2016-11-29] MEDS: VANCOMYCIN HCL 1.25 GM in DEXTROSE 5%-WATER 250 ML IV SCH (09:25)
[2016-11-29] MEDS: HEPARIN SODIUM,PORCINE 5,000 UNITS/ML VIAL SQ SCH ×3 (10:13→23:45)
[2016-11-29] MEDS: DOCUSATE SODIUM 100 MG CAPSULE PO SCH ×2 (10:13→21:01)
[2016-11-29] MEDS: PANTOPRAZOLE SODIUM 40 MG/VIAL IVP SCH (10:14)
[2016-11-29] MEDS: GABAPENTIN 300 MG CAPSULE PO SCH ×3 (10:14→21:01)
[2016-11-29 11:36] VITALS: BP 149/86
[2016-11-29 11:52] LABS: GLUCOSE,POINT OF CARE 265 MG/DL (70-110)
[2016-11-29] MEDS: HYDROCODONE/ACETAMINOPHEN 5-325 MG TABLET PO PRN (12:14)
[2016-11-29] MEDS: CeFAZolin 2 GM/DEXTROSE 50 ML IV SCH ×2 (12:37→23:45)
[2016-11-29] MEDS ORDERED: INDIUM IN-111 OXYQUINOLINE/.5MCL ISOTOPE 1 EA INJ INJ ONE (14:25)
[2016-11-29 15:35] VITALS: BP 130/74
[2016-11-29 18:48] LABS: GLUCOSE COMMENT 1 Received Meds; GLUCOSE,POINT OF CARE 179 MG/DL (70-110)
[2016-11-29 20:08] VITALS: BP 143/94
[2016-11-29] MEDS: INSULIN DETEMIR 100 UNITS/ML SQ SCH (21:00)
[2016-11-29] MEDS: SILVER SULFADIAZINE 1% 25 GM CREAM TP SCH (21:01)
[2016-11-29] MEDS: ATORVASTATIN CALCIUM 40 MG TABLET PO SCH (21:01)
[2016-11-29 21:23] LABS: GLUCOSE COMMENT 1 Received Meds; GLUCOSE,POINT OF CARE 192 MG/DL (70-110)
[2016-11-30 00:32] VITALS: BP 135/70
[2016-11-30 03:30] VITALS: BP 119/65
[2016-11-30] MEDS: INSULIN ASPART 100 UNITS/ML SQ PRN (06:06)
[2016-11-30 06:18] LABS: GLUCOSE COMMENT 1 Received Meds; GLUCOSE,POINT OF CARE 179 MG/DL (70-110)
[2016-11-30 06:58] LABS: CALCIUM, TOTAL 8.8 mg/dL (8.8-10.5); CREATININE 1.7 mg/dL (0.60-1.30); POTASSIUM 4.3 mmol/L (3.5-5.1)
[2016-11-30 08:00] VITALS: BP 155/89
[2016-11-30] MEDS: DOCUSATE SODIUM 100 MG CAPSULE PO SCH (09:01)
[2016-11-30] MEDS: GABAPENTIN 300 MG CAPSULE PO SCH (09:01)
[2016-11-30] MEDS: PANTOPRAZOLE SODIUM 40 MG/VIAL IVP SCH (09:01)
[2016-11-30] MEDS: HEPARIN SODIUM,PORCINE 5,000 UNITS/ML VIAL SQ SCH (09:01)
[2016-11-30] MEDS: VANCOMYCIN HCL 1.25 GM in DEXTROSE 5%-WATER 250 ML IV SCH (09:02)
[2016-11-30] MEDS: HYDROCODONE/ACETAMINOPHEN 5-325 MG TABLET PO PRN (09:35)
== END 2016-11-30 10:30 | disposition left against medical advice (07) | DRG 710 ==
LOC: EMS 18:04 → 6N 21:51
PROVIDERS: ADMIT Hospitalist; ATTEND Hospitalist
PROC: 0KBW0ZZ Excision of Left Foot Muscle, Open Approach (ICD-10-PCS; principal; 2016-11-25)
DX: A41.9 Sepsis, unspecified organism (principal); E43 Unspecified severe protein-calorie malnutrition; E11.22 Type 2 diabetes mellitus with diabetic chronic kidney disease; N17.9 Acute kidney failure, unspecified; N18.3 Chronic kidney disease, stage 3 (moderate); E11.40 Type 2 diabetes mellitus with diabetic neuropathy, unspecified; E11.621 Type 2 diabetes mellitus with foot ulcer; L02.612 Cutaneous abscess of left foot; E78.5 Hyperlipidemia, unspecified; I12.9 Hypertensive chronic kidney disease with stage 1 through stage 4 chronic kidney disease, or unspecified chronic kidney disease; E11.65 Type 2 diabetes mellitus with hyperglycemia; J44.9 Chronic obstructive pulmonary disease, unspecified; B95.62 Methicillin resistant Staphylococcus aureus infection as the cause of diseases classified elsewhere; M86.8X7 Other osteomyelitis, ankle and foot; L97.529 Non-pressure chronic ulcer of other part of left foot with unspecified severity; E11.69 Type 2 diabetes mellitus with other specified complication; M51.36 Other intervertebral disc degeneration, lumbar region; F17.210 Nicotine dependence, cigarettes, uncomplicated; Z79.899 Other long term (current) drug therapy; Z79.4 Long term (current) use of insulin; Z89.411 Acquired absence of right great toe; Z91.19 Patient's noncompliance with other medical treatment and regimen; Z79.01 Long term (current) use of anticoagulants; Z68.26 Body mass index [BMI] 26.0-26.9, adult
CPT/HCPCS: 72131; 72141; 72148; 73718; 78806; 82962; 84145; 86140; 87040; 87070; 87081; 87147; 87205; 93306; 96372; 97116; 97161; 97530; 99285; A9547; C9113; J0690; J1644; J1885; J2270; J3370; J7040; J7060

== ENCOUNTER 2016-11-30 11:45 | Inpatient (IN) | payer OTHER ==
[~2016-11-30] VITALS: Ht 180.3 cm; Wt 94.1 kg
[~2016-11-30 11:45] MED LIST changes: +KETAMINE HCL 50 MG/ML 10 ML VIAL IVP ONE; +LIDOCAINE HCL/PF 2% 5 ML VIAL IM ONE; +METOCLOPRAMIDE HCL 5 MG/ML 2 ML VIAL IVP ONE; +MIDAZOLAM HCL 2 MG/2 ML VIAL IVP ONE; +ONDANSETRON HCL 4 MG/2 ML VIAL IVP ONE; +PHENYLEPHRINE HCL 10 MG/ML VIAL IVP ONE; +PROPOFOL 1% 20 ML VIAL IVP ONE
[2016-11-30 12:02] LABS: GLUCOSE,POINT OF CARE 154 MG/DL (70-110)
[2016-11-30] MEDS ORDERED: DEXTROSE 50%-WATER 25 GM/50 ML SYRINGE IVP PRN ×2 (14:00)
[2016-11-30] MEDS ORDERED: ACETAMINOPHEN 325 MG TABLET PO PRN ×2 (14:00)
[2016-11-30] MEDS ORDERED: 0.9% SODIUM CHLORIDE 10 ML SYRINGE IVP PRN ×2 (14:00→14:30)
[2016-11-30] MEDS ORDERED: ONDANSETRON HCL 4 MG/2 ML VIAL IVP PRN ×2 (14:00→14:30)
[2016-11-30] MEDS ORDERED: ALBUTEROL SULFATE 2.5 MG/0.5 ML NEB SOLUTION NEB PRN (14:00)
[2016-11-30] MEDS ORDERED: CeFAZolin 2 GM/DEXTROSE 50 ML IV SCH (14:00)
[2016-11-30] MEDS ORDERED: ZOLPIDEM TARTRATE 5 MG TABLET PO PRN (14:30)
[2016-11-30] MEDS ORDERED: MAGNESIUM HYDROXIDE SUSPENSION 30 ML UDCUP PO PRN (14:30)
[2016-11-30] MEDS ORDERED: IPRATROPIUM BROMIDE 0.5 MG/2.5 ML NEB SOLUTION NEB PRN (14:30)
[2016-11-30 15:38] VITALS: BP 151/74
[2016-11-30] MEDS ORDERED: HEPARIN SODIUM,PORCINE 5,000 UNITS/ML VIAL SQ SCH (16:00)
[2016-11-30] MEDS ORDERED: SODIUM CHLORIDE 0.9% 500 ML IV ONE (16:31)
[2016-11-30] MEDS: GABAPENTIN 300 MG CAPSULE PO SCH ×2 (16:32→20:20)
[2016-11-30] MEDS: INSULIN ASPART 100 UNITS/ML SQ PRN (17:05)
[2016-11-30 17:17] LABS: GLUCOSE COMMENT 1 Received Meds; GLUCOSE,POINT OF CARE 246 MG/DL (70-110)
[2016-11-30 19:22] VITALS: BP 159/87
[2016-11-30] MEDS: ATORVASTATIN CALCIUM 40 MG TABLET PO SCH (20:20)
[2016-11-30] MEDS: DOCUSATE SODIUM 100 MG CAPSULE PO SCH (20:43)
[2016-11-30] MEDS: INSULIN DETEMIR 100 UNITS/ML SQ SCH (21:00)
[2016-11-30] MEDS ORDERED: ATORVASTATIN CALCIUM 40 MG TABLET PO SCH (21:00)
[2016-11-30] MEDS: HYDROCODONE/ACETAMINOPHEN 5-325 MG TABLET PO PRN (21:27)
[2016-11-30 23:21] VITALS: BP 114/73
[2016-12-01 00:11] LABS: GLUCOSE COMMENT 1 Received Meds; GLUCOSE,POINT OF CARE 158 MG/DL (70-110)
[2016-12-01 05:31] VITALS: BP 116/60
[2016-12-01 07:12] LABS: GLUCOSE COMMENT 1 Received Meds; GLUCOSE,POINT OF CARE 214 MG/DL (70-110)
[2016-12-01 07:20] LABS: ALBUMIN 1.9 g/dL (3.4-5.0); BILIRUBIN,TOTAL 0.2 mg/dL (0.1-1.0); CALCIUM, TOTAL 8.5 mg/dL (8.8-10.5); CREATININE 1.85 mg/dL (0.60-1.30); MAGNESIUM 1.8 mg/dL (1.80-2.40); POTASSIUM 4.2 mmol/L (3.5-5.1); TOTAL PROTEIN, SERUM 6.7 g/dL (6.4-8.2)
[2016-12-01 07:35] LABS: BASOPHILS % (AUTO) 0.7 % (0.0-2.0); EOSINOPHILS % (AUTO) 2.8 % (1.0-6.0); HEMATOCRIT 31.4 % (41-53); HEMOGLOBIN 10.3 g/dL (13.5-17.5); LYMPHOCYTES # (AUTO) 3.3 K/uL (1.0-4.8); LYMPHOCYTES % (AUTO) 24.9 % (22.0-44.0); MEAN CORPUSCULAR HGB CONC 32.6 G/dL (31.0-37.0); MEAN CORPUSCULAR VOLUME 95 fL (80-100); MONOCYTES # (AUTO) 1.1 K/uL (0.1-1.0); MONOCYTES % (AUTO) 8.7 % (2.0-9.0); NEUTROPHILS # (AUTO) 8.3 K/uL (1.8-7.7); NEUTROPHILS % (AUTO) 62.9 % (40.0-70.0); PLATELET COUNT (AUTO) 351 K/uL (150-450); RED BLOOD CELL COUNT(AUTO) 3.31 MIL/uL (4.50-5.90); RED CELL DISTRIBUTION WIDTH 13.5 % (11.5-14.5); WHITE BLOOD COUNT (AUTO) 13.2 K/uL (4.5-11.0)
[2016-12-01 07:45] VITALS: BP 106/56
[2016-12-01] MEDS: CeFAZolin 2 GM/DEXTROSE 50 ML IV SCH ×3 (08:00→15:31)
[2016-12-01] MEDS ORDERED: VANCOMYCIN HCL 1.25 GM in DEXTROSE 5%-WATER 250 ML IV SCH (08:00)
[2016-12-01] MEDS: PANTOPRAZOLE SODIUM 40 MG/VIAL IVP SCH (08:00)
[2016-12-01] MEDS: DOCUSATE SODIUM 100 MG CAPSULE PO SCH ×2 (08:01→20:48)
[2016-12-01] MEDS: GABAPENTIN 300 MG CAPSULE PO SCH ×3 (08:01→20:48)
[2016-12-01] MEDS ORDERED: SILVER SULFADIAZINE 1% 25 GM CREAM TP SCH (09:00)
[2016-12-01] MEDS: HYDROCODONE/ACETAMINOPHEN 5-325 MG TABLET PO PRN ×3 (09:32→20:50)
[2016-12-01] MEDS ORDERED: SODIUM CHLORIDE 0.9% 10 ML ONE (10:08)
[2016-12-01] MEDS ORDERED: HYDROmorphone 2 MG/ML SYRINGE IVP PRN (11:00)
[2016-12-01] MEDS ORDERED: FentaNYL CITRATE-PF 100 MCG/2 ML VIAL IVP PRN (11:00)
[2016-12-01] MEDS: OXYGEN THERAPY IH SCH ×2 (11:00→20:51)
[2016-12-01] MEDS ORDERED: MEPERIDINE-PF 25 MG/ML SYRINGE IVP PRN (11:00)
[2016-12-01] MEDS ORDERED: SODIUM CHLORIDE 0.9% 1,000 ML IV ONE ×3 (11:00→12:19)
[2016-12-01] MEDS ORDERED: PROPOFOL 1000 MG/ISO-OSM 100 ML IV ONE (12:02)
[2016-12-01 12:23] LABS: GLUCOSE,POINT OF CARE 237 MG/DL (70-110)
[2016-12-01] MEDS: LIDOCAINE HCL/PF 1% 30 ML VIAL ONE ×2 (12:30→12:38)
[2016-12-01] MEDS: BUPIVACAINE HCL/PF 0.5% 30 ML VIAL ONE ×2 (12:30→12:38)
[2016-12-01] MEDS: BACITRACIN 50,000 UNITS/VIAL ONE ×2 (12:32→12:37)
[2016-12-01 15:46] VITALS: BP 142/78
[2016-12-01] MEDS: INSULIN ASPART 100 UNITS/ML SQ PRN ×2 (17:28→21:29)
[2016-12-01 19:57] LABS: GLUCOSE COMMENT 1 Received Meds; GLUCOSE,POINT OF CARE 326 MG/DL (70-110)
[2016-12-01 20:38] VITALS: BP 148/79
[2016-12-01] MEDS: ATORVASTATIN CALCIUM 40 MG TABLET PO SCH (20:48)
[2016-12-01] MEDS: VANCOMYCIN HCL 750 MG in DEXTROSE 5%-WATER 150 ML IV SCH (20:51)
[2016-12-01] MEDS: INSULIN DETEMIR 100 UNITS/ML SQ SCH (21:26)
[2016-12-01 23:40] VITALS: BP 127/76
[2016-12-01 23:47] LABS: GLUCOSE COMMENT 1 Received Meds; GLUCOSE,POINT OF CARE 302 MG/DL (70-110)
[2016-12-02] MEDS: CeFAZolin 2 GM/DEXTROSE 50 ML IV SCH ×3 (01:15→16:15)
[2016-12-02 04:47] VITALS: BP 123/72
[2016-12-02] MEDS: INSULIN ASPART 100 UNITS/ML SQ PRN ×4 (06:12→22:37)
[2016-12-02 06:27] LABS: GLUCOSE COMMENT 1 Received Meds; GLUCOSE,POINT OF CARE 193 MG/DL (70-110)
[2016-12-02 07:25] VITALS: BP 134/64
[2016-12-02 07:31] LABS: CALCIUM, TOTAL 8.5 mg/dL (8.8-10.5); CREATININE 1.61 mg/dL (0.60-1.30); POTASSIUM 4.3 mmol/L (3.5-5.1)
[2016-12-02] MEDS: PANTOPRAZOLE SODIUM 40 MG/VIAL IVP SCH (08:07)
[2016-12-02] MEDS: VANCOMYCIN HCL 750 MG in DEXTROSE 5%-WATER 150 ML IV SCH ×2 (08:07→20:02)
[2016-12-02] MEDS: DOCUSATE SODIUM 100 MG CAPSULE PO SCH ×2 (08:08→21:00)
[2016-12-02] MEDS: GABAPENTIN 300 MG CAPSULE PO SCH ×3 (08:08→20:02)
[2016-12-02 08:20] LABS: BASOPHILS % (AUTO) 0.7 % (0.0-2.0); EOSINOPHILS % (AUTO) 3.4 % (1.0-6.0); HEMATOCRIT 29.8 % (41-53); HEMOGLOBIN 9.7 g/dL (13.5-17.5); LYMPHOCYTES # (AUTO) 2.9 K/uL (1.0-4.8); LYMPHOCYTES % (AUTO) 25.2 % (22.0-44.0); MEAN CORPUSCULAR HEMOGLOBIN 31.1 pg (26.0-34.0); MEAN CORPUSCULAR HGB CONC 32.8 G/dL (31.0-37.0); MEAN CORPUSCULAR VOLUME 95 fL (80-100); MONOCYTES # (AUTO) 1.1 K/uL (0.1-1.0); MONOCYTES % (AUTO) 9.2 % (2.0-9.0); NEUTROPHILS # (AUTO) 7.2 K/uL (1.8-7.7); NEUTROPHILS % (AUTO) 61.5 % (40.0-70.0); PLATELET COUNT (AUTO) 350 K/uL (150-450); RED BLOOD CELL COUNT(AUTO) 3.13 MIL/uL (4.50-5.90); RED CELL DISTRIBUTION WIDTH 13.7 % (11.5-14.5); WHITE BLOOD COUNT (AUTO) 11.7 K/uL (4.5-11.0)
[2016-12-02] MEDS: HYDROCODONE/ACETAMINOPHEN 5-325 MG TABLET PO PRN ×2 (09:47→16:27)
[2016-12-02 12:14] VITALS: BP 148/88
[2016-12-02 13:52] LABS: GLUCOSE COMMENT 1 Received Meds; GLUCOSE,POINT OF CARE 216 MG/DL (70-110)
[2016-12-02 15:21] VITALS: BP 140/62
[2016-12-02 18:22] LABS: GLUCOSE COMMENT 1 Received Meds; GLUCOSE,POINT OF CARE 217 MG/DL (70-110)
[2016-12-02 19:36] VITALS: BP 140/92
[2016-12-02] MEDS: ATORVASTATIN CALCIUM 40 MG TABLET PO SCH (20:02)
[2016-12-02] MEDS: INSULIN DETEMIR 100 UNITS/ML SQ SCH (22:36)
[2016-12-02 23:18] VITALS: BP 163/94
[2016-12-03 00:17] LABS: GLUCOSE,POINT OF CARE 322 MG/DL (70-110)
[2016-12-03 04:22] VITALS: BP 134/73
[2016-12-03] MEDS: INSULIN ASPART 100 UNITS/ML SQ PRN ×4 (06:19→20:48)
[2016-12-03 06:32] LABS: BASOPHILS % (AUTO) 0.7 % (0.0-2.0); EOSINOPHILS % (AUTO) 3.8 % (1.0-6.0); HEMATOCRIT 32.5 % (41-53); HEMOGLOBIN 10.5 g/dL (13.5-17.5); LYMPHOCYTES # (AUTO) 3.1 K/uL (1.0-4.8); LYMPHOCYTES % (AUTO) 25.2 % (22.0-44.0); MEAN CORPUSCULAR HEMOGLOBIN 30.8 pg (26.0-34.0); MEAN CORPUSCULAR HGB CONC 32.4 G/dL (31.0-37.0); MEAN CORPUSCULAR VOLUME 95 fL (80-100); MONOCYTES # (AUTO) 0.6 K/uL (0.1-1.0); MONOCYTES % (AUTO) 4.9 % (2.0-9.0); NEUTROPHILS % (AUTO) 65.4 % (40.0-70.0); PLATELET COUNT (AUTO) 403 K/uL (150-450); RED BLOOD CELL COUNT(AUTO) 3.42 MIL/uL (4.50-5.90); RED CELL DISTRIBUTION WIDTH 13.2 % (11.5-14.5); WHITE BLOOD COUNT (AUTO) 12.2 K/uL (4.5-11.0)
[2016-12-03 06:37] LABS: GLUCOSE COMMENT 1 Received Meds; GLUCOSE,POINT OF CARE 222 MG/DL (70-110)
[2016-12-03 06:41] LABS: ANION GAP 6 mmol/L (8-16); CARBON DIOXIDE 27 mmol/L (22-29); CHLORIDE 102 mmol/L (98-107); CREATININE 1.37 mg/dL (0.60-1.30); GLOMERULAR FILTR. RATE CALC > 60 mL/min (>60); POTASSIUM 4.7 mmol/L (3.5-5.1); SODIUM SERUM 135 mmol/L (136-145); UREA NITROGEN, BLOOD 22 mg/dL (7-18)
[2016-12-03 08:11] VITALS: BP 129/62
[2016-12-03] MEDS: CeFAZolin 2 GM/DEXTROSE 50 ML IV SCH ×3 (08:40→15:42)
[2016-12-03] MEDS: PANTOPRAZOLE SODIUM 40 MG/VIAL IVP SCH (08:43)
[2016-12-03] MEDS: DOCUSATE SODIUM 100 MG CAPSULE PO SCH ×2 (08:43→20:49)
[2016-12-03] MEDS: GABAPENTIN 300 MG CAPSULE PO SCH ×3 (08:43→20:42)
[2016-12-03] MEDS: MULTIVITAMINS, THERAPEUTIC TABLET PO SCH (08:43)
[2016-12-03] MEDS: HYDROCODONE/ACETAMINOPHEN 5-325 MG TABLET PO PRN ×2 (09:02→15:43)
[2016-12-03] MEDS: VANCOMYCIN HCL 750 MG in DEXTROSE 5%-WATER 150 ML IV SCH ×2 (09:58→20:42)
[2016-12-03 11:15] VITALS: BP 144/80
[2016-12-03 12:07] LABS: GLUCOSE COMMENT 1 Received Meds; GLUCOSE,POINT OF CARE 234 MG/DL (70-110)
[2016-12-03 15:38] VITALS: BP 167/87
[2016-12-03 17:37] LABS: GLUCOSE,POINT OF CARE 187 MG/DL (70-110)
[2016-12-03] MEDS: ATORVASTATIN CALCIUM 40 MG TABLET PO SCH (20:41)
[2016-12-03] MEDS: INSULIN DETEMIR 100 UNITS/ML SQ SCH (20:47)
[2016-12-03 23:26] VITALS: BP 151/105
[2016-12-04] MEDS: CeFAZolin 2 GM/DEXTROSE 50 ML IV SCH ×3 (00:11→16:19)
[2016-12-04] MEDS: HYDROCODONE/ACETAMINOPHEN 5-325 MG TABLET PO PRN ×3 (00:16→20:17)
[2016-12-04] MEDS ORDERED: PHENYLEPHRINE HCL 10 MG/ML VIAL IVP ONE (00:20)
[2016-12-04] MEDS ORDERED: PROPOFOL 1% 20 ML VIAL IVP ONE (00:20)
[2016-12-04] MEDS ORDERED: MIDAZOLAM HCL 2 MG/2 ML VIAL IVP ONE (00:20)
[2016-12-04] MEDS ORDERED: KETAMINE HCL 50 MG/ML 10 ML VIAL IVP ONE (00:20)
[2016-12-04] MEDS ORDERED: 0.9% SODIUM CHLORIDE 10 ML VIAL IVP ONE (00:20)
[2016-12-04] MEDS ORDERED: FentaNYL CITRATE-PF 100 MCG/2 ML VIAL IVP ONE (00:20)
[2016-12-04 04:51] VITALS: BP 154/68
[2016-12-04 06:03] LABS: EOSINOPHILS % (AUTO) 2.8 % (1.0-6.0); HEMATOCRIT 32.8 % (41-53); HEMOGLOBIN 10.6 g/dL (13.5-17.5); LYMPHOCYTES # (AUTO) 3.4 K/uL (1.0-4.8); LYMPHOCYTES % (AUTO) 24.9 % (22.0-44.0); MEAN CORPUSCULAR HEMOGLOBIN 30.7 pg (26.0-34.0); MEAN CORPUSCULAR HGB CONC 32.5 G/dL (31.0-37.0); MEAN CORPUSCULAR VOLUME 95 fL (80-100); MONOCYTES # (AUTO) 0.9 K/uL (0.1-1.0); MONOCYTES % (AUTO) 6.5 % (2.0-9.0); NEUTROPHILS # (AUTO) 8.7 K/uL (1.8-7.7); NEUTROPHILS % (AUTO) 63.8 % (40.0-70.0); PLATELET COUNT (AUTO) 361 K/uL (150-450); RED BLOOD CELL COUNT(AUTO) 3.47 MIL/uL (4.50-5.90); RED CELL DISTRIBUTION WIDTH 13.2 % (11.5-14.5); WHITE BLOOD COUNT (AUTO) 13.6 K/uL (4.5-11.0)
[2016-12-04 06:11] LABS: ANION GAP 5 mmol/L (8-16); CALCIUM, TOTAL 8.7 mg/dL (8.8-10.5); CARBON DIOXIDE 29 mmol/L (22-29); CHLORIDE 103 mmol/L (98-107); CREATININE 1.25 mg/dL (0.60-1.30); GLOMERULAR FILTR. RATE CALC > 60 mL/min (>60); POTASSIUM 4.2 mmol/L (3.5-5.1); SODIUM SERUM 137 mmol/L (136-145); UREA NITROGEN, BLOOD 23 mg/dL (7-18)
[2016-12-04] MEDS: INSULIN ASPART 100 UNITS/ML SQ PRN ×3 (06:18→17:15)
[2016-12-04 06:36] LABS: GLUCOSE COMMENT 1 Received Meds; GLUCOSE,POINT OF CARE 145 MG/DL (70-110)
[2016-12-04 06:48] LABS: GLUCOSE COMMENT 1 Received Meds; GLUCOSE,POINT OF CARE 164 MG/DL (70-110)
[2016-12-04 07:37] VITALS: BP 91/54
[2016-12-04] MEDS ORDERED: SODIUM CHLORIDE 0.9% 500 ML IV ONE ×2 (08:45→16:24)
[2016-12-04] MEDS: PANTOPRAZOLE SODIUM 40 MG/VIAL IVP SCH (08:46)
[2016-12-04 08:57] LABS: PROTHROMBIN TIME 10.1 SEC (9.4-11.6)
[2016-12-04] MEDS: DOCUSATE SODIUM 100 MG CAPSULE PO SCH ×2 (09:00→20:16)
[2016-12-04] MEDS: MULTIVITAMINS, THERAPEUTIC TABLET PO SCH (09:00)
[2016-12-04] MEDS: GABAPENTIN 300 MG CAPSULE PO SCH ×3 (09:04→20:16)
[2016-12-04] MEDS ORDERED: BUPIVACAINE HCL/PF 0.5% 30 ML VIAL ONE (09:09)
[2016-12-04] MEDS ORDERED: LIDOCAINE HCL/PF 1% 30 ML VIAL ONE (09:09)
[2016-12-04] MEDS ORDERED: SODIUM CHLORIDE 0.9% 0 ML IV ONE (09:11)
[2016-12-04] MEDS ORDERED: SODIUM CHLORIDE 0.9% 1,000 ML IV ONE ×2 (10:00→12:01)
[2016-12-04] MEDS: VANCOMYCIN HCL 750 MG in DEXTROSE 5%-WATER 150 ML IV SCH ×2 (10:23→20:17)
[2016-12-04] MEDS ORDERED: ACETAMINOPHEN 1000 MG/ISO-OSM 100 ML IV ONE (11:29)
[2016-12-04] MEDS ORDERED: PROPOFOL 1000 MG/ISO-OSM 100 ML IV ONE (11:29)
[2016-12-04 12:02] LABS: GLUCOSE COMMENT 1 Received Meds; GLUCOSE,POINT OF CARE 163 MG/DL (70-110)
[2016-12-04] MEDS ORDERED: BACITRACIN 50,000 UNITS/VIAL ONE (12:02)
[2016-12-04] MEDS ORDERED: SODIUM CHLORIDE 0.9% 10 ML ONE (12:03)
[2016-12-04] MEDS ORDERED: FentaNYL CITRATE-PF 100 MCG/2 ML VIAL IVP PRN (13:45)
[2016-12-04] MEDS ORDERED: HYDROmorphone 2 MG/ML SYRINGE IVP PRN (13:45)
[2016-12-04] MEDS ORDERED: MEPERIDINE-PF 25 MG/ML SYRINGE IVP PRN (13:45)
[2016-12-04] MEDS ORDERED: HYDROmorphone 2 MG/ML SYRINGE IVP ONE (14:15)
[2016-12-04 17:27] LABS: GLUCOSE COMMENT 1 Received Meds; GLUCOSE,POINT OF CARE 171 MG/DL (70-110)
[2016-12-04 19:27] VITALS: BP 157/93
[2016-12-04] MEDS ORDERED: OXYGEN THERAPY IH SCH (20:00)
[2016-12-04] MEDS: ATORVASTATIN CALCIUM 40 MG TABLET PO SCH (20:16)
[2016-12-04] MEDS: INSULIN DETEMIR 100 UNITS/ML SQ SCH (21:17)
[2016-12-04 22:52] LABS: GLUCOSE,POINT OF CARE 131 MG/DL (70-110)
[2016-12-05] VITALS: BP 140/89
[2016-12-05] MEDS: CeFAZolin 2 GM/DEXTROSE 50 ML IV SCH ×4 (01:12→23:59)
[2016-12-05 05:01] VITALS: BP 119/71
[2016-12-05 05:47] LABS: GLUCOSE COMMENT 1 Received Meds; GLUCOSE,POINT OF CARE 222 MG/DL (70-110)
[2016-12-05] MEDS: INSULIN ASPART 100 UNITS/ML SQ PRN ×4 (06:18→20:30)
[2016-12-05 06:20] LABS: BASOPHILS % (AUTO) 0.5 % (0.0-2.0); EOSINOPHILS % (AUTO) 1.8 % (1.0-6.0); HEMATOCRIT 33.3 % (41-53); HEMOGLOBIN 10.8 g/dL (13.5-17.5); LYMPHOCYTES # (AUTO) 3.1 K/uL (1.0-4.8); LYMPHOCYTES % (AUTO) 19.9 % (22.0-44.0); MEAN CORPUSCULAR HEMOGLOBIN 30.9 pg (26.0-34.0); MEAN CORPUSCULAR HGB CONC 32.5 G/dL (31.0-37.0); MEAN CORPUSCULAR VOLUME 95 fL (80-100); MONOCYTES # (AUTO) 1.1 K/uL (0.1-1.0); MONOCYTES % (AUTO) 7.4 % (2.0-9.0); NEUTROPHILS # (AUTO) 10.8 K/uL (1.8-7.7); NEUTROPHILS % (AUTO) 70.4 % (40.0-70.0); PLATELET COUNT (AUTO) 383 K/uL (150-450); RED CELL DISTRIBUTION WIDTH 13.2 % (11.5-14.5); WHITE BLOOD COUNT (AUTO) 15.4 K/uL (4.5-11.0)
[2016-12-05 06:57] LABS: ANION GAP 8 mmol/L (8-16); CALCIUM, TOTAL 8.7 mg/dL (8.8-10.5); CARBON DIOXIDE 26 mmol/L (22-29); CHLORIDE 102 mmol/L (98-107); CREATININE 1.41 mg/dL (0.60-1.30); GLOMERULAR FILTR. RATE CALC > 60 mL/min (>60); SODIUM SERUM 136 mmol/L (136-145); UREA NITROGEN, BLOOD 21 mg/dL (7-18)
[2016-12-05] MEDS: PANTOPRAZOLE SODIUM 40 MG/VIAL IVP SCH (08:18)
[2016-12-05] MEDS: GABAPENTIN 300 MG CAPSULE PO SCH ×3 (08:18→20:28)
[2016-12-05] MEDS: VANCOMYCIN HCL 750 MG in DEXTROSE 5%-WATER 150 ML IV SCH ×2 (08:18→20:27)
[2016-12-05] MEDS: MULTIVITAMINS, THERAPEUTIC TABLET PO SCH (08:19)
[2016-12-05] MEDS: DOCUSATE SODIUM 100 MG CAPSULE PO SCH ×2 (08:19→20:28)
[2016-12-05] MEDS: HYDROCODONE/ACETAMINOPHEN 5-325 MG TABLET PO PRN ×2 (10:13→23:58)
[2016-12-05 11:49] VITALS: BP 150/96
[2016-12-05] MEDS ORDERED: SODIUM CHLORIDE 0.9% 250 ML IV ONE (15:26)
[2016-12-05 15:39] VITALS: BP 130/84
[2016-12-05 17:22] LABS: GLUCOSE COMMENT 1 Received Meds; GLUCOSE,POINT OF CARE 202 MG/DL (70-110)
[2016-12-05 19:21] VITALS: BP 153/67
[2016-12-05 19:42] LABS: GLUCOSE COMMENT 1 Received Meds; GLUCOSE,POINT OF CARE 161 MG/DL (70-110)
[2016-12-05] MEDS: ATORVASTATIN CALCIUM 40 MG TABLET PO SCH (20:28)
[2016-12-05] MEDS: INSULIN DETEMIR 100 UNITS/ML SQ SCH (20:29)
[2016-12-05 22:52] VITALS: BP 138/82
[2016-12-06 04:45] VITALS: BP 109/55
[2016-12-06 05:27] LABS: GLUCOSE,POINT OF CARE 132 MG/DL (70-110)
[2016-12-06 05:58] LABS: BASOPHILS % (AUTO) 0.7 % (0.0-2.0); EOSINOPHILS % (AUTO) 1.9 % (1.0-6.0); HEMATOCRIT 30.1 % (41-53); HEMOGLOBIN 9.7 g/dL (13.5-17.5); LYMPHOCYTES # (AUTO) 3.3 K/uL (1.0-4.8); LYMPHOCYTES % (AUTO) 21.7 % (22.0-44.0); MEAN CORPUSCULAR HEMOGLOBIN 30.8 pg (26.0-34.0); MEAN CORPUSCULAR HGB CONC 32.3 G/dL (31.0-37.0); MEAN CORPUSCULAR VOLUME 95 fL (80-100); MONOCYTES # (AUTO) 0.9 K/uL (0.1-1.0); MONOCYTES % (AUTO) 5.7 % (2.0-9.0); NEUTROPHILS # (AUTO) 10.6 K/uL (1.8-7.7); PLATELET COUNT (AUTO) 352 K/uL (150-450); RED BLOOD CELL COUNT(AUTO) 3.16 MIL/uL (4.50-5.90); RED CELL DISTRIBUTION WIDTH 13.3 % (11.5-14.5); WHITE BLOOD COUNT (AUTO) 15.2 K/uL (4.5-11.0)
[2016-12-06 06:05] LABS: ANION GAP 5 mmol/L (8-16); CALCIUM, TOTAL 8.5 mg/dL (8.8-10.5); CARBON DIOXIDE 28 mmol/L (22-29); CHLORIDE 104 mmol/L (98-107); CREATININE 1.33 mg/dL (0.60-1.30); GLOMERULAR FILTR. RATE CALC > 60 mL/min (>60); POTASSIUM 4.2 mmol/L (3.5-5.1); SODIUM SERUM 137 mmol/L (136-145); UREA NITROGEN, BLOOD 21 mg/dL (7-18)
[2016-12-06 07:27] LABS: GLUCOSE COMMENT 1 Received Meds; GLUCOSE,POINT OF CARE 146 MG/DL (70-110)
[2016-12-06] MEDS: CeFAZolin 2 GM/DEXTROSE 50 ML IV SCH ×2 (08:20→17:51)
[2016-12-06] MEDS: VANCOMYCIN HCL 750 MG in DEXTROSE 5%-WATER 150 ML IV SCH ×2 (08:29→20:04)
[2016-12-06] MEDS: PANTOPRAZOLE SODIUM 40 MG/VIAL IVP SCH (08:58)
[2016-12-06] MEDS: MULTIVITAMINS, THERAPEUTIC TABLET PO SCH (08:58)
[2016-12-06] MEDS: DOCUSATE SODIUM 100 MG CAPSULE PO SCH ×2 (08:58→20:03)
[2016-12-06] MEDS: GABAPENTIN 300 MG CAPSULE PO SCH ×3 (08:58→20:03)
[2016-12-06] MEDS: HYDROCODONE/ACETAMINOPHEN 5-325 MG TABLET PO PRN ×2 (09:54→18:12)
[2016-12-06 11:44] VITALS: BP 155/74
[2016-12-06] MEDS: INSULIN ASPART 100 UNITS/ML SQ PRN ×3 (11:44→21:26)
[2016-12-06 13:27] LABS: GLUCOSE COMMENT 1 Received Meds; GLUCOSE,POINT OF CARE 243 MG/DL (70-110)
[2016-12-06 18:12] LABS: GLUCOSE,POINT OF CARE 147 MG/DL (70-110)
[2016-12-06 19:20] VITALS: BP 138/84
[2016-12-06] MEDS: ATORVASTATIN CALCIUM 40 MG TABLET PO SCH (20:03)
[2016-12-06] MEDS ORDERED: SODIUM CHLORIDE 0.9% 500 ML IV ONE (21:17)
[2016-12-06] MEDS: INSULIN DETEMIR 100 UNITS/ML SQ SCH (21:27)
[2016-12-06 21:42] LABS: GLUCOSE COMMENT 1 Received Meds; GLUCOSE,POINT OF CARE 166 MG/DL (70-110)
[2016-12-06 23:19] VITALS: BP 150/94
[2016-12-07] MEDS: CeFAZolin 2 GM/DEXTROSE 50 ML IV SCH ×2 (00:38→08:14)
[2016-12-07] MEDS: HYDROCODONE/ACETAMINOPHEN 5-325 MG TABLET PO PRN ×2 (00:38→12:07)
[2016-12-07 04:50] VITALS: BP 118/73
[2016-12-07] MEDS: INSULIN ASPART 100 UNITS/ML SQ PRN ×2 (05:51→12:04)
[2016-12-07 06:46] LABS: GLUCOSE COMMENT 1 Received Meds; GLUCOSE,POINT OF CARE 228 MG/DL (70-110)
[2016-12-07 07:45] VITALS: BP 142/81
[2016-12-07 07:53] LABS: ANION GAP 6 mmol/L (8-16); CALCIUM, TOTAL 8.7 mg/dL (8.8-10.5); CARBON DIOXIDE 28 mmol/L (22-29); CHLORIDE 103 mmol/L (98-107); CREATININE 1.35 mg/dL (0.60-1.30); GLOMERULAR FILTR. RATE CALC > 60 mL/min (>60); POTASSIUM 4.1 mmol/L (3.5-5.1); SODIUM SERUM 137 mmol/L (136-145); UREA NITROGEN, BLOOD 21 mg/dL (7-18)
[2016-12-07] MEDS: PANTOPRAZOLE SODIUM 40 MG/VIAL IVP SCH (08:14)
[2016-12-07] MEDS: DOCUSATE SODIUM 100 MG CAPSULE PO SCH (08:14)
[2016-12-07] MEDS: GABAPENTIN 300 MG CAPSULE PO SCH (08:14)
[2016-12-07] MEDS: MULTIVITAMINS, THERAPEUTIC TABLET PO SCH (08:14)
[2016-12-07] MEDS: VANCOMYCIN HCL 750 MG in DEXTROSE 5%-WATER 150 ML IV SCH (09:32)
[2016-12-07 11:17] LABS: GLUCOSE COMMENT 1 Received Meds; GLUCOSE,POINT OF CARE 211 MG/DL (70-110)
[2016-12-07 11:20] LABS: BASOPHILS % (AUTO) 0.9 % (0.0-2.0); EOSINOPHILS % (AUTO) 1.8 % (1.0-6.0); HEMATOCRIT 31.8 % (41-53); HEMOGLOBIN 10.6 g/dL (13.5-17.5); LYMPHOCYTES # (AUTO) 3.5 K/uL (1.0-4.8); LYMPHOCYTES % (AUTO) 26.2 % (22.0-44.0); MEAN CORPUSCULAR HEMOGLOBIN 31.6 pg (26.0-34.0); MEAN CORPUSCULAR HGB CONC 33.3 G/dL (31.0-37.0); MEAN CORPUSCULAR VOLUME 95 fL (80-100); MONOCYTES # (AUTO) 0.6 K/uL (0.1-1.0); MONOCYTES % (AUTO) 4.8 % (2.0-9.0); NEUTROPHILS # (AUTO) 8.8 K/uL (1.8-7.7); NEUTROPHILS % (AUTO) 66.3 % (40.0-70.0); PLATELET COUNT (AUTO) 327 K/uL (150-450); RED BLOOD CELL COUNT(AUTO) 3.36 MIL/uL (4.50-5.90); RED CELL DISTRIBUTION WIDTH 13.5 % (11.5-14.5); WHITE BLOOD COUNT (AUTO) 13.3 K/uL (4.5-11.0)
[2016-12-07 11:39] VITALS: BP 138/99
[2016-12-07] MEDS ORDERED: CEFA1IV IV (13:08)
[2016-12-07] MEDS ORDERED: VANC750F2 IVPB (13:10)
== END 2016-12-07 15:05 | disposition home health service (06) | DRG 710 ==
LOC: EMS 11:47 → 6N 14:01
PROVIDERS: ADMIT Internal Medicine; ATTEND Internal Medicine
PROC: 0Y6S0Z0 Detachment at Left 2nd Toe, Complete, Open Approach (ICD-10-PCS; 2016-12-01)
PROC: 0Y6U0Z0 Detachment at Left 3rd Toe, Complete, Open Approach (ICD-10-PCS; principal; 2016-12-04 12:00)
PROC: 02HV33Z Insertion of Infusion Device into Superior Vena Cava, Percutaneous Approach (ICD-10-PCS; 2016-12-05)
PROC: B518ZZA Fluoroscopy of Superior Vena Cava, Guidance (ICD-10-PCS; 2016-12-05)
PROC: B548ZZA Ultrasonography of Superior Vena Cava, Guidance (ICD-10-PCS; 2016-12-05)
DX: A41.02 Sepsis due to Methicillin resistant Staphylococcus aureus (principal); E43 Unspecified severe protein-calorie malnutrition; I13.10 Hypertensive heart and chronic kidney disease without heart failure, with stage 1 through stage 4 chronic kidney disease, or unspecified chronic kidney disease; M00.9 Pyogenic arthritis, unspecified; E44.0 Moderate protein-calorie malnutrition; E11.21 Type 2 diabetes mellitus with diabetic nephropathy; E11.40 Type 2 diabetes mellitus with diabetic neuropathy, unspecified; E11.621 Type 2 diabetes mellitus with foot ulcer; E11.22 Type 2 diabetes mellitus with diabetic chronic kidney disease; N18.3 Chronic kidney disease, stage 3 (moderate); E78.5 Hyperlipidemia, unspecified; G47.00 Insomnia, unspecified; E11.65 Type 2 diabetes mellitus with hyperglycemia; E11.69 Type 2 diabetes mellitus with other specified complication; L97.519 Non-pressure chronic ulcer of other part of right foot with unspecified severity; G89.29 Other chronic pain; M54.5 Low back pain; M86.8X7 Other osteomyelitis, ankle and foot; J44.9 Chronic obstructive pulmonary disease, unspecified; L02.612 Cutaneous abscess of left foot; I25.10 Atherosclerotic heart disease of native coronary artery without angina pectoris; B95.61 Methicillin susceptible Staphylococcus aureus infection as the cause of diseases classified elsewhere; F12.90 Cannabis use, unspecified, uncomplicated; F17.210 Nicotine dependence, cigarettes, uncomplicated; Z89.411 Acquired absence of right great toe; Z79.899 Other long term (current) drug therapy; Z79.2 Long term (current) use of antibiotics; Z79.01 Long term (current) use of anticoagulants; Z79.4 Long term (current) use of insulin; Z91.19 Patient's noncompliance with other medical treatment and regimen; Z79.84 Long term (current) use of oral hypoglycemic drugs; Z79.891 Long term (current) use of opiate analgesic; Z68.28 Body mass index [BMI] 28.0-28.9, adult
CPT/HCPCS: 36245; 36569; 76937; 82962; 83735; 87070; 87081; 87147; 87205; 88305; 88311; 93005; 99285; C9113; J0131; J0690; J1170; J1644; J2250; J2370; J2405; J2704; J2765; J3010; J3370; J3490; J7030; J7040; J7050; J7060

== ENCOUNTER 2017-04-30 14:27 | Emergency (ER) | payer OTHER ==
[~2017-04-30] VITALS: Ht 182.9 cm; Wt 92.7 kg
[~2017-04-30 14:27] MED LIST changes: +CEFA1IV IV; -CEFX1I IV; -INSLAN SQ; -KETAMINE HCL 50 MG/ML 10 ML VIAL IVP ONE; -LIDOCAINE HCL/PF 2% 5 ML VIAL IM ONE; -LISI-618 PO; -METF500T4 PO; -METOCLOPRAMIDE HCL 5 MG/ML 2 ML VIAL IVP ONE; -MIDAZOLAM HCL 2 MG/2 ML VIAL IVP ONE; -ONDANSETRON HCL 4 MG/2 ML VIAL IVP ONE; -OXYC-165 PO; -PHENYLEPHRINE HCL 10 MG/ML VIAL IVP ONE; -PROPOFOL 1% 20 ML VIAL IVP ONE; +VANC750F2 IVPB
[2017-04-30 14:47] LABS: GLUCOSE,POINT OF CARE 171 MG/DL (70-110)
[2017-04-30 15:00] VITALS: BP 142/102
[2017-04-30] MEDS ORDERED: ALBUTEROL SULFATE HFA 90 MCG/PUFF 8 GM INHALER IH ONE (15:30)
== END 2017-04-30 16:20 | disposition home or self-care (01) ==
LOC: EMS 14:31
DX: J44.1 Chronic obstructive pulmonary disease with (acute) exacerbation (principal); E11.9 Type 2 diabetes mellitus without complications; E78.00 Pure hypercholesterolemia, unspecified; I10 Essential (primary) hypertension; F17.210 Nicotine dependence, cigarettes, uncomplicated; F12.90 Cannabis use, unspecified, uncomplicated
CPT/HCPCS: 82962; 94640; 99283; 99406; J3535

== ENCOUNTER 2017-10-11 07:41 | Emergency (ER) | payer OTHER ==
[~2017-10-11] VITALS: Ht 182.9 cm; Wt 95.5 kg
[~2017-10-11 07:41] MED LIST changes: -CEFA1IV IV; -VANC750F2 IVPB
[2017-10-11 07:53] LABS: GLUCOSE,POINT OF CARE 260 MG/DL (70-110)
[2017-10-11] MEDS ORDERED: GLIP5 PO (07:59)
[2017-10-11] MEDS ORDERED: LISI-660 PO (07:59)
[2017-10-11] MEDS ORDERED: METF500T4 PO (07:59)
[2017-10-11 10:02] VITALS: BP 122/78
[2017-10-11] MEDS ORDERED: AMOX TR/POT CLAV 875 MG/125 MG TABLET PO ONE (10:15)
== END 2017-10-11 10:24 | disposition home or self-care (01) ==
LOC: EMS 07:42
DX: J32.9 Chronic sinusitis, unspecified (principal); J02.9 Acute pharyngitis, unspecified; E11.9 Type 2 diabetes mellitus without complications; E78.00 Pure hypercholesterolemia, unspecified; I10 Essential (primary) hypertension; F17.210 Nicotine dependence, cigarettes, uncomplicated; F12.90 Cannabis use, unspecified, uncomplicated
CPT/HCPCS: 82962; 99283

== ENCOUNTER 2017-12-24 07:14 | Emergency (ER) | payer OTHER ==
[~2017-12-24] VITALS: Ht 182.9 cm; Wt 97.7 kg
[~2017-12-24 07:14] MED LIST changes: +GLIP5 PO; +LISI-660 PO; +METF500T6 PO
[2017-12-24] MEDS ORDERED: HYDR-308 PO (07:31)
[2017-12-24 07:40] LABS: GLUCOSE,POINT OF CARE 241 MG/DL (70-110)
[2017-12-24] MEDS ORDERED: ONDANSETRON HCL 4 MG TABLET PO ONE (08:15)
[2017-12-24] MEDS ORDERED: HYDROCODONE/ACETAMINOPHEN 10-325 MG TABLET PO ONE (08:15)
[2017-12-24] MEDS ORDERED: LIDOCAINE HCL 1% 20 ML VIAL INJ ONE (08:15)
[2017-12-24 10:31] VITALS: BP 152/69
[2017-12-24] MEDS ORDERED: SULFAMETHOX/TRIMETH DS 800-160 MG/TABLET PO ONE (10:45)
== END 2017-12-24 10:50 | disposition home or self-care (01) ==
LOC: EMS 07:16
DX: L02.212 Cutaneous abscess of back [any part, except buttock and flank] (principal); L03.312 Cellulitis of back [any part except buttock and flank]; E11.9 Type 2 diabetes mellitus without complications; E78.00 Pure hypercholesterolemia, unspecified; I10 Essential (primary) hypertension; F17.210 Nicotine dependence, cigarettes, uncomplicated
CPT/HCPCS: 10060; 82962; 99284; J3490; Q0162

== ENCOUNTER 2017-12-26 05:57 | Emergency (ER) | payer OTHER ==
[~2017-12-26] VITALS: Ht 172.7 cm; Wt 90.9 kg
[~2017-12-26 05:57] MED LIST changes: +HYDR-308 PO
[2017-12-26 06:04] VITALS: BP 158/68
[2017-12-26 06:15] LABS: GLUCOSE,POINT OF CARE 166 MG/DL (70-110)
[2017-12-26] MEDS ORDERED: SODIUM CHLORIDE 0.9% 1,000 ML IV ONE (06:30)
[2017-12-26 06:50] LABS: BASOPHILS % (AUTO) 1.2 % (0.0-2.0); EOSINOPHILS % (AUTO) 0.4 % (1.0-6.0); HEMATOCRIT 29.9 % (41-53); HEMOGLOBIN 10.3 g/dL (13.5-17.5); LYMPHOCYTES # (AUTO) 2.5 K/uL (1.0-4.8); LYMPHOCYTES % (AUTO) 13.3 % (22.0-44.0); MEAN CORPUSCULAR HEMOGLOBIN 32.6 pg (26.0-34.0); MEAN CORPUSCULAR HGB CONC 34.5 G/dL (31.0-37.0); MEAN CORPUSCULAR VOLUME 94 fL (80-100); MONOCYTES # (AUTO) 1.9 K/uL (0.1-1.0); MONOCYTES % (AUTO) 10.2 % (2.0-9.0); NEUTROPHILS # (AUTO) 14.2 K/uL (1.8-7.7); NEUTROPHILS % (AUTO) 74.9 % (40.0-70.0); PLATELET COUNT (AUTO) 251 K/uL (150-450); RED BLOOD CELL COUNT(AUTO) 3.16 MIL/uL (4.50-5.90); RED CELL DISTRIBUTION WIDTH 12.5 % (11.5-14.5)
[2017-12-26 07:01] LABS: CALCIUM, TOTAL 8.9 mg/dL (8.8-10.5); CREATININE 2.24 mg/dL (0.60-1.30); POTASSIUM 4.4 mmol/L (3.5-5.1)
== END 2017-12-26 09:44 | disposition home or self-care (01) ==
LOC: EMS 05:57
DX: D72.829 Elevated white blood cell count, unspecified (principal); N28.9 Disorder of kidney and ureter, unspecified; F17.210 Nicotine dependence, cigarettes, uncomplicated; E11.9 Type 2 diabetes mellitus without complications; E78.00 Pure hypercholesterolemia, unspecified; I10 Essential (primary) hypertension; G89.29 Other chronic pain
CPT/HCPCS: 36415; 80048; 82962; 85025; 99285; 99406; J7030

== ENCOUNTER 2018-01-11 13:30 | Emergency (ER) | payer OTHER ==
[~2018-01-11] VITALS: Ht 182.9 cm; Wt 95.5 kg
[2018-01-11] MEDS ORDERED: ANTIBIOTIC PO (13:38)
[2018-01-11 14:40] VITALS: BP 139/89
[2018-01-11] MEDS ORDERED: IBUPROFEN 800 MG TABLET PO ONE (15:00)
== END 2018-01-11 15:11 | disposition home or self-care (01) ==
LOC: EMS 13:33
DX: Z48.00 Encounter for change or removal of nonsurgical wound dressing (principal); E11.9 Type 2 diabetes mellitus without complications; E78.00 Pure hypercholesterolemia, unspecified; I10 Essential (primary) hypertension; F17.210 Nicotine dependence, cigarettes, uncomplicated
CPT/HCPCS: 99282; 99283

== ENCOUNTER 2018-04-26 14:16 | Inpatient (IN) | payer OTHER ==
[~2018-04-26] VITALS: Ht 180.3 cm; Wt 89.9 kg
[~2018-04-26 14:16] MED LIST changes: +ALBU8HFA IH; -LISI-660 PO; -METF500T6 PO; +METHI5 PO; +PRED20 PO
[2018-04-26 15:13] LABS: GLUCOSE,POINT OF CARE 395 MG/DL (70-110)
[2018-04-26 15:25] LABS: HEMATOCRIT 39.6 % (41-53); HEMOGLOBIN 13.4 g/dL (13.5-17.5); MEAN CORPUSCULAR HEMOGLOBIN 30.8 pg (26.0-34.0); MEAN CORPUSCULAR HGB CONC 33.9 G/dL (31.0-37.0); MEAN CORPUSCULAR VOLUME 91 fL (80-100); PLATELET COUNT (AUTO) 242 K/uL (150-450); RED BLOOD CELL COUNT(AUTO) 4.36 MIL/uL (4.50-5.90); RED CELL DISTRIBUTION WIDTH 15.3 % (11.5-14.5)
[2018-04-26 15:55] LABS: BAND NEUTROPHILS % (MANUAL) 0 % (0-5); LYMPHOCYTES % (MANUAL) 11 % (22-44); MONOCYTES % (MANUAL) 9 % (2-9); SEGMENTED NEUTROPHILS % 80 % (40-70)
[2018-04-26 16:01] LABS: ALBUMIN 2.9 g/dL (3.4-5.0); BILIRUBIN,TOTAL 0.3 mg/dL (0.1-1.0); CALCIUM, TOTAL 9.4 mg/dL (8.8-10.5); POTASSIUM 4.5 mmol/L (3.5-5.1); TOTAL PROTEIN, SERUM 7.2 g/dL (6.4-8.2)
[2018-04-26] MEDS ORDERED: BARIUM SULFATE 0.1% SUSPENSION 450 ML BOTTLE PO ONE (16:30)
[2018-04-26] MEDS ORDERED: INSULIN REGULAR, HUMAN 100 UNITS/ML IVP ONE (16:45)
[2018-04-26] MEDS: METOCLOPRAMIDE HCL 5 MG/ML 2 ML VIAL IVP ONE ×2 (16:59→17:05)
[2018-04-26] MEDS ORDERED: FAMOTIDINE 10 MG/ML 2 ML VIAL IVP ONE (17:00)
[2018-04-26 19:12] LABS: GLUCOSE,POINT OF CARE 335 MG/DL (70-110)
[2018-04-26 19:57] LABS: APPEARANCE,URINE CLOUDY (CLEAR); BILIRUBIN,URINE NEGATIVE (NEGATIVE); GLUCOSE, URINE (UA) >=1000 mg/dL (NEGATIVE); KETONES,URINE NEGATIVE (NEGATIVE); LEUKOCYTE ESTERASE ,URINE NEGATIVE (NEGATIVE); NITRATE,URINE NEGATIVE (NEGATIVE); OCCULT BLOOD,URINE MODERATE (NEGATIVE); PROTEIN,URINE SEE CONFIRM (NEGATIVE); UROBILINOGEN,URINE 0.2 mg/dL (<=1.0)
[2018-04-26 20:23] LABS: SULFOSALICYLIC ACID,URINE 4+ (Negative)
[2018-04-26 20:25] LABS: RBC,URINE 0-2 /HPF (0-2); WBC,URINE 0-2 /HPF (0-5)
[2018-04-26 20:26] LABS: AMORPHOUS SEDIMENT,UR Few /LPF (None Seen); BACTERIA,URINE Few /HPF (None Seen); SQUAMOUS EPITHELIAL CELL,UR Few /LPF (None Seen)
[2018-04-26] MEDS ORDERED: ACETAMINOPHEN 325 MG TABLET PO PRN ×2 (20:30→21:15)
[2018-04-26] MEDS ORDERED: 0.9% SODIUM CHLORIDE 10 ML SYRINGE IVP PRN (20:30)
[2018-04-26] MEDS ORDERED: ONDANSETRON HCL 4 MG/2 ML VIAL IVP PRN ×2 (20:30→21:30)
[2018-04-26] MEDS ORDERED: OxyCODONE HCL/ACETAMINOPHEN 5-325 MG TABLET PO PRN (21:15)
[2018-04-26] MEDS ORDERED: BISACODYL 10 MG RECTAL RECTAL SUPPOSITORY PR PRN (21:15)
[2018-04-26] MEDS ORDERED: ALBUTEROL SULFATE 2.5 MG/0.5 ML NEB SOLUTION NEB PRN (21:15)
[2018-04-26] MEDS ORDERED: SODIUM CHLORIDE 0.45% 1,000 ML IV ONE (21:30)
[2018-04-26] MEDS ORDERED: MORPHINE SULFATE 2 MG/ML SYRINGE IVP PRN (21:30)
[2018-04-26 22:00] VITALS: BP 151/86
[2018-04-26] MEDS: INSULIN GLARGINE,HUM.REC.ANLOG 100 UNITS/ML SQ SCH (22:31)
[2018-04-26 23:36] VITALS: BP 154/78
[2018-04-27 02:27] LABS: BASOPHILS % (AUTO) 0.8 % (0.0-2.0); EOSINOPHILS % (AUTO) 0 % (1.0-6.0); HEMOGLOBIN 11.5 g/dL (13.5-17.5); LYMPHOCYTES # (AUTO) 2.5 K/uL (1.0-4.8); LYMPHOCYTES % (AUTO) 12.9 % (22.0-44.0); MEAN CORPUSCULAR HEMOGLOBIN 30.6 pg (26.0-34.0); MEAN CORPUSCULAR HGB CONC 33.9 G/dL (31.0-37.0); MEAN CORPUSCULAR VOLUME 90 fL (80-100); MONOCYTES # (AUTO) 2.2 K/uL (0.1-1.0); MONOCYTES % (AUTO) 11.6 % (2.0-9.0); NEUTROPHILS # (AUTO) 14.4 K/uL (1.8-7.7); NEUTROPHILS % (AUTO) 74.7 % (40.0-70.0); PLATELET COUNT (AUTO) 214 K/uL (150-450); RED BLOOD CELL COUNT(AUTO) 3.76 MIL/uL (4.50-5.90); RED CELL DISTRIBUTION WIDTH 15.1 % (11.5-14.5)
[2018-04-27 02:40] LABS: ALBUMIN 2.5 g/dL (3.4-5.0); BILIRUBIN,TOTAL 0.3 mg/dL (0.1-1.0); CALCIUM, TOTAL 8.5 mg/dL (8.8-10.5); CREATININE 1.95 mg/dL (0.60-1.30); POTASSIUM 4.2 mmol/L (3.5-5.1); TOTAL PROTEIN, SERUM 6.3 g/dL (6.4-8.2)
[2018-04-27 04:21] VITALS: BP 153/81
[2018-04-27 05:18] LABS: GLUCOMETER DEV NAME(LOC) 5S 2R; GLUCOSE,POINT OF CARE 223 MG/DL (70-110)
[2018-04-27 07:14] VITALS: BP 150/78
[2018-04-27] MEDS: ASPIRIN 81 MG CHEWABLE TABLET PO SCH (07:50)
[2018-04-27] MEDS: HEPARIN SODIUM,PORCINE 5,000 UNITS/ML VIAL SQ SCH ×2 (07:50→20:33)
[2018-04-27] MEDS: PANTOPRAZOLE SODIUM 40 MG DR TABLET PO SCH (07:50)
[2018-04-27] MEDS ORDERED: HYDR-4061 PO (07:55)
[2018-04-27] MEDS: INSULIN GLARGINE,HUM.REC.ANLOG 100 UNITS/ML SQ SCH ×2 (07:56→20:42)
[2018-04-27] MEDS: DOCUSATE SODIUM 100 MG CAPSULE PO SCH ×2 (07:57→20:45)
[2018-04-27] MEDS ORDERED: PNEUMOCOCCAL VACCINE POLYVALENT 0.5 ML VIAL [PPSV23] IM ONE (09:30)
[2018-04-27] MEDS ORDERED: MORPHINE SULFATE 4 MG/ML SYRINGE IVP PRN (10:30)
[2018-04-27] MEDS ORDERED: DEXTROSE 50%-WATER 25 GM/50 ML SYRINGE IVP PRN (10:30)
[2018-04-27] MEDS: GABAPENTIN 300 MG CAPSULE PO SCH ×3 (10:59→20:34)
[2018-04-27] MEDS: ATORVASTATIN CALCIUM 40 MG TABLET PO SCH (10:59)
[2018-04-27] MEDS: AmLODIPine BESYLATE 10 MG TABLET PO SCH (10:59)
[2018-04-27 11:13] VITALS: BP 138/67
[2018-04-27] MEDS: INSULIN LISPRO 100 UNITS/ML SQ PRN ×2 (12:23→18:22)
[2018-04-27 15:38] VITALS: BP 129/75
[2018-04-27] MEDS ORDERED: GABAPENTIN 300 MG CAPSULE PO SCH (16:00)
[2018-04-27] MEDS: GlipiZIDE 5 MG TABLET PO SCH (17:45)
[2018-04-27 19:03] LABS: GLUCOMETER DEV NAME(LOC) 5S 2R; GLUCOSE,POINT OF CARE 174 MG/DL (70-110)
[2018-04-27 19:03] LABS: GLUCOMETER DEV NAME(LOC) 5S 2R; GLUCOSE,POINT OF CARE 205 MG/DL (70-110)
[2018-04-27 19:03] LABS: GLUCOMETER DEV NAME(LOC) 5S 2R; GLUCOSE,POINT OF CARE 160 MG/DL (70-110)
[2018-04-27 19:40] VITALS: BP 125/75
[2018-04-27] MEDS ORDERED: ATORVASTATIN CALCIUM 20 MG TABLET PO SCH (21:00)
[2018-04-27 21:08] LABS: GLUCOMETER DEV NAME(LOC) 5N 1P; GLUCOSE,POINT OF CARE 164 MG/DL (70-110)
[2018-04-27 21:08] LABS: GLUCOMETER DEV NAME(LOC) 5N 1P; GLUCOSE,POINT OF CARE 128 MG/DL (70-110)
[2018-04-27 23:17] VITALS: BP 112/76
[2018-04-28 05:15] VITALS: BP 134/82
[2018-04-28 05:50] LABS: BASOPHILS % (AUTO) 0.6 % (0.0-2.0); EOSINOPHILS % (AUTO) 0.3 % (1.0-6.0); HEMATOCRIT 30.9 % (41-53); HEMOGLOBIN 10.5 g/dL (13.5-17.5); LYMPHOCYTES # (AUTO) 3.6 K/uL (1.0-4.8); LYMPHOCYTES % (AUTO) 27.5 % (22.0-44.0); MEAN CORPUSCULAR HEMOGLOBIN 31.1 pg (26.0-34.0); MEAN CORPUSCULAR HGB CONC 33.8 G/dL (31.0-37.0); MEAN CORPUSCULAR VOLUME 92 fL (80-100); MONOCYTES # (AUTO) 1.4 K/uL (0.1-1.0); MONOCYTES % (AUTO) 10.9 % (2.0-9.0); NEUTROPHILS % (AUTO) 60.7 % (40.0-70.0); PLATELET COUNT (AUTO) 194 K/uL (150-450); RED BLOOD CELL COUNT(AUTO) 3.36 MIL/uL (4.50-5.90); RED CELL DISTRIBUTION WIDTH 14.8 % (11.5-14.5)
[2018-04-28] MEDS: GlipiZIDE 5 MG TABLET PO SCH ×3 (06:30→17:54)
[2018-04-28 07:53] VITALS: BP 127/75
[2018-04-28] MEDS: GABAPENTIN 300 MG CAPSULE PO SCH ×3 (08:24→20:53)
[2018-04-28] MEDS: PANTOPRAZOLE SODIUM 40 MG DR TABLET PO SCH (08:24)
[2018-04-28] MEDS: ATORVASTATIN CALCIUM 40 MG TABLET PO SCH (08:24)
[2018-04-28] MEDS: AmLODIPine BESYLATE 10 MG TABLET PO SCH (08:24)
[2018-04-28] MEDS: ASPIRIN 81 MG CHEWABLE TABLET PO SCH (08:25)
[2018-04-28] MEDS: DOCUSATE SODIUM 100 MG CAPSULE PO SCH ×2 (08:26→21:00)
[2018-04-28] MEDS: HEPARIN SODIUM,PORCINE 5,000 UNITS/ML VIAL SQ SCH ×2 (08:26→20:53)
[2018-04-28] MEDS: INSULIN GLARGINE,HUM.REC.ANLOG 100 UNITS/ML SQ SCH ×2 (08:35→21:02)
[2018-04-28 12:01] VITALS: BP 134/72
[2018-04-28 14:13] LABS: GLUCOMETER DEV NAME(LOC) 5S 2R; GLUCOSE,POINT OF CARE 88 MG/DL (70-110)
[2018-04-28 14:13] LABS: GLUCOMETER DEV NAME(LOC) 5S 1N; GLUCOSE,POINT OF CARE 145 MG/DL (70-110)
[2018-04-28 15:42] VITALS: BP 123/71
[2018-04-28] MEDS: INSULIN LISPRO 100 UNITS/ML SQ PRN (17:58)
[2018-04-28 19:47] VITALS: BP 138/67
[2018-04-28 23:09] VITALS: BP 143/82
[2018-04-29 04:15] VITALS: BP 146/91
[2018-04-29 06:25] LABS: BASOPHILS % (AUTO) 0.9 % (0.0-2.0); EOSINOPHILS % (AUTO) 0.8 % (1.0-6.0); HEMATOCRIT 32.8 % (41-53); HEMOGLOBIN 11.2 g/dL (13.5-17.5); LYMPHOCYTES # (AUTO) 2.9 K/uL (1.0-4.8); LYMPHOCYTES % (AUTO) 29.2 % (22.0-44.0); MEAN CORPUSCULAR HEMOGLOBIN 30.9 pg (26.0-34.0); MEAN CORPUSCULAR HGB CONC 34.3 G/dL (31.0-37.0); MEAN CORPUSCULAR VOLUME 90 fL (80-100); MONOCYTES # (AUTO) 1.1 K/uL (0.1-1.0); MONOCYTES % (AUTO) 11.5 % (2.0-9.0); NEUTROPHILS # (AUTO) 5.7 K/uL (1.8-7.7); NEUTROPHILS % (AUTO) 57.6 % (40.0-70.0); PLATELET COUNT (AUTO) 208 K/uL (150-450); RED BLOOD CELL COUNT(AUTO) 3.64 MIL/uL (4.50-5.90); RED CELL DISTRIBUTION WIDTH 14.8 % (11.5-14.5)
[2018-04-29] MEDS: GlipiZIDE 5 MG TABLET PO SCH (06:30)
[2018-04-29 06:40] LABS: CALCIUM, TOTAL 8.7 mg/dL (8.8-10.5); CREATININE 1.55 mg/dL (0.60-1.30); POTASSIUM 3.9 mmol/L (3.5-5.1)
[2018-04-29 08:18] VITALS: BP 117/72
[2018-04-29] MEDS: HEPARIN SODIUM,PORCINE 5,000 UNITS/ML VIAL SQ SCH (08:58)
[2018-04-29] MEDS: PANTOPRAZOLE SODIUM 40 MG DR TABLET PO SCH (08:58)
[2018-04-29] MEDS: DOCUSATE SODIUM 100 MG CAPSULE PO SCH (08:58)
[2018-04-29] MEDS: ATORVASTATIN CALCIUM 40 MG TABLET PO SCH (08:58)
[2018-04-29] MEDS: AmLODIPine BESYLATE 10 MG TABLET PO SCH (08:58)
[2018-04-29] MEDS: ASPIRIN 81 MG CHEWABLE TABLET PO SCH (08:58)
[2018-04-29] MEDS: GABAPENTIN 300 MG CAPSULE PO SCH ×2 (08:58→16:00)
[2018-04-29] MEDS: INSULIN GLARGINE,HUM.REC.ANLOG 100 UNITS/ML SQ SCH (09:06)
[2018-04-29 11:59] VITALS: BP 119/73
[2018-04-29 12:48] LABS: GLUCOMETER DEV NAME(LOC) 5S 2R; GLUCOSE,POINT OF CARE 184 MG/DL (70-110)
[2018-04-29 12:48] LABS: GLUCOMETER DEV NAME(LOC) 5S 2R; GLUCOSE,POINT OF CARE 152 MG/DL (70-110)
[2018-04-29 12:48] LABS: GLUCOMETER DEV NAME(LOC) 5S 2R; GLUCOSE,POINT OF CARE 85 MG/DL (70-110)
[2018-04-29 14:48] LABS: GLUCOMETER DEV NAME(LOC) 5S 2R; GLUCOSE,POINT OF CARE 126 MG/DL (70-110)
[2018-04-29 15:48] VITALS: BP 122/58
== END 2018-04-29 17:35 | disposition home or self-care (01) | DRG 48 ==
LOC: EMS 14:18 → 5S 21:00 → 5N 04-28 15:50
PROVIDERS: ADMIT Internal Medicine; ATTEND Internal Medicine
DX: E11.43 Type 2 diabetes mellitus with diabetic autonomic (poly)neuropathy (principal); E44.0 Moderate protein-calorie malnutrition; N17.9 Acute kidney failure, unspecified; E11.21 Type 2 diabetes mellitus with diabetic nephropathy; E11.51 Type 2 diabetes mellitus with diabetic peripheral angiopathy without gangrene; N18.3 Chronic kidney disease, stage 3 (moderate); R65.10 Systemic inflammatory response syndrome (SIRS) of non-infectious origin without acute organ dysfunction; A08.4 Viral intestinal infection, unspecified; E11.65 Type 2 diabetes mellitus with hyperglycemia; K31.84 Gastroparesis; D72.829 Elevated white blood cell count, unspecified; I73.9 Peripheral vascular disease, unspecified; I25.10 Atherosclerotic heart disease of native coronary artery without angina pectoris; E78.00 Pure hypercholesterolemia, unspecified; F17.200 Nicotine dependence, unspecified, uncomplicated; G89.29 Other chronic pain; I10 Essential (primary) hypertension; I44.0 Atrioventricular block, first degree; J44.9 Chronic obstructive pulmonary disease, unspecified; Z23 Encounter for immunization; Z68.27 Body mass index [BMI] 27.0-27.9, adult
CPT/HCPCS: 74022; 74176; 90686; 90732; 93005; 96374; 96375; G0378; J1644; J1815; J2405; J2765; J3490

== ENCOUNTER 2019-01-22 15:20 | Emergency (ER) | payer OTHER ==
[~2019-01-22] VITALS: Ht 182.9 cm; Wt 81.0 kg
[~2019-01-22 15:20] MED LIST changes: -AMLO-512 PO; +AMLO10TA7 PO; -HYDR-308 PO; -METHI5 PO; -PRED20 PO
[2019-01-22 15:45] LABS: GLUCOSE,POINT OF CARE 79 MG/DL (70-110)
[2019-01-22] MEDS ORDERED: HYDROCODONE/ACETAMINOPHEN 5-325 MG TABLET PO ONE (17:30)
[2019-01-22 19:10] VITALS: BP 124/79
== END 2019-01-22 19:20 | disposition home or self-care (01) ==
LOC: EMS 15:20
DX: G89.29 Other chronic pain (principal); M54.5 Low back pain; M25.511 Pain in right shoulder; I10 Essential (primary) hypertension; E11.9 Type 2 diabetes mellitus without complications; E78.00 Pure hypercholesterolemia, unspecified; F17.210 Nicotine dependence, cigarettes, uncomplicated; Z79.899 Other long term (current) drug therapy

== ENCOUNTER 2020-03-05 12:05 | Emergency (ER) | payer OTHER ==
[~2020-03-05] VITALS: Ht 183.5 cm; Wt 95.0 kg
[~2020-03-05 12:05] MED LIST changes: +AMLO-258 PO; -AMLO10TA7 PO; +GABA-1181 PO; -GABA-531 PO
[2020-03-05 12:11] VITALS: BP 116/57
[2020-03-05] MEDS ORDERED: LIDOCAINE 1%/EPI 1:200,000/PF 10 ML VIAL INJ ONE (13:30)
== END 2020-03-05 14:45 | disposition home or self-care (01) ==
LOC: EMS 12:06
DX: L72.9 Follicular cyst of the skin and subcutaneous tissue, unspecified (principal); R22.0 Localized swelling, mass and lump, head; K08.89 Other specified disorders of teeth and supporting structures; E11.9 Type 2 diabetes mellitus without complications; E78.00 Pure hypercholesterolemia, unspecified; I10 Essential (primary) hypertension; F17.210 Nicotine dependence, cigarettes, uncomplicated
CPT/HCPCS: 10160; 82962; 99284; J3490; 41800

== ENCOUNTER 2020-03-12 14:10 | Emergency (ER) | payer OTHER ==
[~2020-03-12] VITALS: Ht 182.9 cm; Wt 95.5 kg
[2020-03-12 14:22] VITALS: BP 107/70
[2020-03-12 15:03] LABS: GLUCOSE,POINT OF CARE 69 MG/DL (70-110)
== END 2020-03-12 15:58 | disposition home or self-care (01) ==
LOC: EMS 14:15
DX: R22.0 Localized swelling, mass and lump, head (principal); Z53.21 Procedure and treatment not carried out due to patient leaving prior to being seen by health care provider

== ENCOUNTER 2020-03-17 13:12 | Emergency (ER) | payer OTHER ==
[~2020-03-17] VITALS: Ht 182.9 cm; Wt 95.5 kg
[2020-03-17] MEDS ORDERED: LIDOCAINE 1% 10 ML VIAL INJ ONE (15:00)
[2020-03-17] MEDS ORDERED: POVIDONE-IODINE 10% 15 ML SOLUTION UD TP ONE (15:00)
[2020-03-17] MEDS ORDERED: HYDROCODONE/ACETAMINOPHEN 5-325 MG TABLET PO ONE (15:00)
[2020-03-17] MEDS ORDERED: LIDOCAINE 2% 5 ML JELLY TP ONE (15:45)
[2020-03-17 17:20] VITALS: BP 116/61
== END 2020-03-17 17:24 | disposition home or self-care (01) ==
LOC: EMS 13:14
DX: L02.01 Cutaneous abscess of face (principal); E11.9 Type 2 diabetes mellitus without complications; E78.00 Pure hypercholesterolemia, unspecified; I10 Essential (primary) hypertension; F17.210 Nicotine dependence, cigarettes, uncomplicated; Z79.899 Other long term (current) drug therapy
CPT/HCPCS: 10060; 99283; J3490

== ENCOUNTER 2022-02-07 14:44 | Emergency (ER) | payer OTHER ==
[~2022-02-07] VITALS: Ht 182.9 cm; Wt 95.5 kg
[~2022-02-07 14:44] MED LIST changes: +ASPI81 PO; -ATOR40TA28 PO; +ATOR40TA71 PO; +BICIT30L PO; +CEPH-558 PO; -GLIP5 PO; +OXYC-38 PO; +SODI5POW3 PO
[2022-02-07 17:30] VITALS: BP 145/70
== END 2022-02-07 17:31 | disposition home or self-care (01) ==
LOC: EMS 14:45
DX: Z47.89 Encounter for other orthopedic aftercare (principal); E11.9 Type 2 diabetes mellitus without complications; E78.00 Pure hypercholesterolemia, unspecified; I10 Essential (primary) hypertension; E11.40 Type 2 diabetes mellitus with diabetic neuropathy, unspecified; F17.210 Nicotine dependence, cigarettes, uncomplicated; F12.90 Cannabis use, unspecified, uncomplicated; Z98.890 Other specified postprocedural states; Z89.421 Acquired absence of other right toe(s); Z89.022 Acquired absence of left finger(s)
CPT/HCPCS: 29515; 99283

== ENCOUNTER 2022-03-01 09:38 | Emergency (ER) | payer OTHER ==
[~2022-03-01] VITALS: Ht 182.9 cm; Wt 95.5 kg
[2022-03-01 11:30] VITALS: BP 154/72
== END 2022-03-01 12:22 | disposition home or self-care (01) ==
LOC: EMS 09:38
DX: S91.311D Laceration without foreign body, right foot, subsequent encounter (principal); X58.XXXD Exposure to other specified factors, subsequent encounter; E78.00 Pure hypercholesterolemia, unspecified; E11.40 Type 2 diabetes mellitus with diabetic neuropathy, unspecified; F12.90 Cannabis use, unspecified, uncomplicated; F17.210 Nicotine dependence, cigarettes, uncomplicated; I10 Essential (primary) hypertension; Z48.02 Encounter for removal of sutures; Z87.828 Personal history of other (healed) physical injury and trauma
CPT/HCPCS: 99281; Z7502

== ENCOUNTER 2022-07-28 08:07 | Inpatient (IN) | payer OTHER ==
[~2022-07-28] VITALS: Ht 177.8 cm; Wt 83.1 kg
[2022-07-28] VITALS (11 sets, daily range): BP systolic 106–136; BP diastolic 53–81
[~2022-07-28 08:07] MED LIST changes: +ASPI-1444 PO; -ASPI81 PO; -ATOR40TA71 PO; -BICIT30L PO; -CEPH-558 PO; -OXYC-38 PO; +ROSU40 PO; -SODI5POW3 PO
[2022-07-28] MEDS ORDERED: MethylPREDNISolone SOD SUCC 125 MG/2 ML VIAL IVP ONE (08:30)
[2022-07-28 12:42] LABS: BASOPHILS % (AUTO) 0.8 % (0.0-2.0); EOSINOPHILS % (AUTO) 0.3 % (1.0-6.0); HEMATOCRIT 24.8 % (41-53); HEMOGLOBIN 7.8 g/dL (13.5-17.5); LYMPHOCYTES # (AUTO) 2.5 K/uL (1.0-4.8); LYMPHOCYTES % (AUTO) 17.1 % (22.0-44.0); MEAN CORPUSCULAR HEMOGLOBIN 31.3 pg (26.0-34.0); MEAN CORPUSCULAR HGB CONC 31.6 G/dL (31.0-37.0); MEAN CORPUSCULAR VOLUME 99 fL (80-100); MONOCYTES # (AUTO) 1.7 K/uL (0.1-1.0); MONOCYTES % (AUTO) 11.9 % (2.0-9.0); NEUTROPHILS # (AUTO) 10.2 K/uL (1.8-7.7); NEUTROPHILS % (AUTO) 69.9 % (40.0-70.0); PLATELET COUNT (AUTO) 281 K/uL (150-450); RED CELL DISTRIBUTION WIDTH 15.9 % (11.5-14.5)
[2022-07-28 12:58] LABS: PROTHROMBIN TIME 10.8 SEC (9.4-11.6)
[2022-07-28 13:08] LABS: CALCIUM, TOTAL 8.6 mg/dL (8.8-10.5); CREATININE 10.01 mg/dL (0.60-1.30); POTASSIUM 4.2 mmol/L (3.5-5.1)
[2022-07-28 13:14] LABS: BILIRUBIN,TOTAL 0.4 mg/dL (0.1-1.0); TOTAL PROTEIN, SERUM 7.1 g/dL (6.4-8.2)
[2022-07-28] MEDS ORDERED: CefTRIAXone 1 GM/DEXTROSE 50 ML IV ONE (14:00)
[2022-07-28] MEDS ORDERED: ASPIRIN 325 MG TABLET PO ONE (14:00)
[2022-07-28] MEDS ORDERED: DEXTROSE 50%-WATER 25 GM/50 ML SYRINGE IVP PRN (14:00)
[2022-07-28] MEDS ORDERED: ONDANSETRON HCL 4 MG/2 ML VIAL IVP PRN (14:00)
[2022-07-28] MEDS: CARVEDILOL 6.25 MG TABLET PO SCH ×2 (14:58→21:45)
[2022-07-28] MEDS: ATORVASTATIN CALCIUM 40 MG TABLET PO SCH (14:58)
[2022-07-28] MEDS: EPOETIN ALFA 10,000 UNITS/ML VIAL SQ SCH (16:16)
[2022-07-28] MEDS: FOLIC ACID/VIT B COMPLEX AND C TABLET PO SCH (16:16)
[2022-07-28] MEDS: HEPARIN SODIUM,PORCINE 5,000 UNITS/ML VIAL SQ SCH (16:17)
[2022-07-28 20:16] LABS: BASOPHILS % (AUTO) 0.5 % (0.0-2.0); EOSINOPHILS % (AUTO) 0.6 % (1.0-6.0); HEMATOCRIT 24.7 % (41-53); LYMPHOCYTES % (AUTO) 13.7 % (22.0-44.0); MEAN CORPUSCULAR HEMOGLOBIN 31.5 pg (26.0-34.0); MEAN CORPUSCULAR HGB CONC 32.3 G/dL (31.0-37.0); MEAN CORPUSCULAR VOLUME 98 fL (80-100); MONOCYTES # (AUTO) 1.5 K/uL (0.1-1.0); MONOCYTES % (AUTO) 10.3 % (2.0-9.0); NEUTROPHILS # (AUTO) 10.8 K/uL (1.8-7.7); NEUTROPHILS % (AUTO) 74.9 % (40.0-70.0); PLATELET COUNT (AUTO) 270 K/uL (150-450); RED BLOOD CELL COUNT(AUTO) 2.53 MIL/uL (4.50-5.90)
[2022-07-28] MEDS ORDERED: HEPARIN SODIUM,PORCINE 1,000 UNITS/ML VIAL IVCATH ONE ×2 (20:30)
[2022-07-28] MEDS: DOCUSATE SODIUM 100 MG CAPSULE PO SCH (21:00)
[2022-07-29] VITALS (9 sets, daily range): BP systolic 90–150; BP diastolic 53–75
[2022-07-29] MEDS: HEPARIN SODIUM,PORCINE 5,000 UNITS/ML VIAL SQ SCH ×4 (00:20→23:19)
[2022-07-29] MEDS: PROPOFOL 1000 MG/ISO-OSM 100 ML IV PRN ×3 (05:31→18:03)
[2022-07-29] MEDS ORDERED: FentaNYL CIT 1000MCG/0.9% NACL 100 ML IV PRN (06:00)
[2022-07-29] MEDS ORDERED: NOREPINEPHRINE 8 MG/D5%-WATER 250 ML IV PRN ×2 (06:00→06:45)
[2022-07-29 06:06] LABS: EOSINOPHILS % (AUTO) 0.5 % (1.0-6.0); HEMATOCRIT 21.8 % (41-53); HEMOGLOBIN 7.1 g/dL (13.5-17.5); LYMPHOCYTES # (AUTO) 2.5 K/uL (1.0-4.8); MEAN CORPUSCULAR HEMOGLOBIN 32.2 pg (26.0-34.0); MEAN CORPUSCULAR HGB CONC 32.5 G/dL (31.0-37.0); MEAN CORPUSCULAR VOLUME 99 fL (80-100); MONOCYTES # (AUTO) 1.6 K/uL (0.1-1.0); NEUTROPHILS # (AUTO) 13.5 K/uL (1.8-7.7); NEUTROPHILS % (AUTO) 75.5 % (40.0-70.0); PLATELET COUNT (AUTO) 289 K/uL (150-450); RED CELL DISTRIBUTION WIDTH 16.1 % (11.5-14.5)
[2022-07-29 06:21] LABS: CALCIUM, TOTAL 9.1 mg/dL (8.8-10.5); CREATININE 5.4 mg/dL (0.60-1.30); POTASSIUM 4.3 mmol/L (3.5-5.1)
[2022-07-29 06:28] LABS: CHOL/HDL RATIO 2.6 (4.2-7.3)
[2022-07-29 06:29] LABS: COVID AG,FIA SOURCE NASAL SWAB
[2022-07-29] MEDS ORDERED: ALBUTEROL SULFATE 2.5 MG/0.5 ML NEB SOLUTION NEB ONE (06:45)
[2022-07-29 06:53] LABS: % IRON SATURATION 24.4 % (30-44)
[2022-07-29 06:59] LABS: ABG BASE EXCESS -1.9 mmol/L (-2.0-3.0); ABG CARBOXYHEMOGLOBIN 0.3 % (0.0-1.5); ABG HCO3 22.8 mmol/L (22.0-26.0); ABG OXYGEN CONTENT 8.1 mL/dL (15.0-23.0); ABG OXYHEMOGLOBIN 73.1 % (94.0-100.0); ABG PCO2 35 mmHg (35-45); ABG PH 7.428 (7.35-7.450); SOURCE, BLOOD GAS ARTERIAL
[2022-07-29 07:22] LABS: ABG BASE EXCESS -1.7 mmol/L (-2.0-3.0); ABG CARBOXYHEMOGLOBIN 0.3 % (0.0-1.5); ABG METHEMOGLOBIN 0.3 % (0.0-1.5); ABG OXYGEN CONTENT 17.3 mL/dL (15.0-23.0); ABG OXYGEN SATURATION 99.6 % (95.0-98.0); ABG PCO2 45 mmHg (35-45); ABG PH 7.343 (7.35-7.450); ABG TOTAL HEMOGLOBIN 11.8 G/dL (12.0-18.0); SOURCE, BLOOD GAS ARTERIAL; TEMPERATURE, FAHRENHEIT, BG 98.9 FAHREN (96.0-98.6)
[2022-07-29 07:23] LABS: ALBUMIN 1.8 g/dL (3.4-5.0); BILIRUBIN,TOTAL 0.4 mg/dL (0.1-1.0); CALCIUM, TOTAL 9.4 mg/dL (8.8-10.5); CREATININE 5.5 mg/dL (0.60-1.30); MAGNESIUM 2.2 mg/dL (1.80-2.40); POTASSIUM 4.4 mmol/L (3.5-5.1); TOTAL PROTEIN, SERUM 6.6 g/dL (6.4-8.2)
[2022-07-29 07:25] LABS: ABG OXYGEN SATURATION 73.3 % (95.0-98.0); ABG TOTAL HEMOGLOBIN 7.8 G/dL (12.0-18.0); PO2, ARTERIAL BG 42.8 mmHg (79.0-87.0)
[2022-07-29 07:26] LABS: O2 DEVICE,BLOOD GAS VENTILATOR (ROOM AIR); PEEP,BG 5 cm H2O; SITE, BLOOD GAS RT BRACHIAL; VT, ABG 450 ml
[2022-07-29 07:27] LABS: O2 DEVICE,BLOOD GAS VENTILATOR (ROOM AIR); PEEP,BG 5 cm H2O; SITE, BLOOD GAS RT BRACHIAL; VT, ABG 450 ml
[2022-07-29] MEDS: PIPERACILLIN SODIUM/TAZOBACTAM 2.25 GM in DEXTROSE 5%-WATER 50 ML IV SCH ×3 (07:53→23:12)
[2022-07-29 08:56] LABS: LACTIC ACID 4.6 mmol/L (0.4-2.0)
[2022-07-29] MEDS: ASPIRIN 81 MG CHEWABLE TABLET PO SCH (09:00)
[2022-07-29] MEDS: CARVEDILOL 6.25 MG TABLET PO SCH ×2 (09:00→20:41)
[2022-07-29] MEDS: ATORVASTATIN CALCIUM 40 MG TABLET PO SCH (09:00)
[2022-07-29] MEDS: DOCUSATE SODIUM 100 MG CAPSULE PO SCH ×2 (09:00→20:41)
[2022-07-29] MEDS: FAMOTIDINE 20 MG TABLET PO SCH (09:00)
[2022-07-29] MEDS: FOLIC ACID/VIT B COMPLEX AND C TABLET PO SCH (09:00)
[2022-07-29 09:16] LABS: GLUCOSE,POINT OF CARE 74 MG/DL (70-110)
[2022-07-29 11:11] LABS: GLUCOSE,POINT OF CARE 192 MG/DL (70-110)
[2022-07-29] MEDS: CALCITRIOL 0.25 MCG CAPSULE PO SCH (12:00)
[2022-07-29] MEDS ORDERED: PIPERACILLIN SODIUM/TAZOBACTAM 0.75 GM in DEXTROSE 5%-WATER 50 ML IV PRN (13:30)
[2022-07-29] MEDS ORDERED: SODIUM CHLORIDE 0.9% 500 ML IV ONE (15:13)
[2022-07-29 21:02] LABS: GLUCOSE,POINT OF CARE 154 MG/DL (70-110)
[2022-07-30 02:24] VITALS: BP 102/51
[2022-07-30 02:32] LABS: GLUCOSE,POINT OF CARE 103 MG/DL (70-110)
[2022-07-30] MEDS: FentaNYL CIT 1000MCG/0.9% NACL 100 ML IV PRN ×2 (02:52→20:17)
[2022-07-30 04:00] VITALS: BP 116/63
[2022-07-30] MEDS: PIPERACILLIN SODIUM/TAZOBACTAM 2.25 GM in DEXTROSE 5%-WATER 50 ML IV SCH ×3 (06:45→23:18)
[2022-07-30 06:49] LABS: BASOPHILS % (AUTO) 0.5 % (0.0-2.0); EOSINOPHILS % (AUTO) 0.4 % (1.0-6.0); HEMATOCRIT 22.6 % (41-53); HEMOGLOBIN 7.5 g/dL (13.5-17.5); LYMPHOCYTES # (AUTO) 1.4 K/uL (1.0-4.8); LYMPHOCYTES % (AUTO) 9.7 % (22.0-44.0); MEAN CORPUSCULAR HEMOGLOBIN 32.1 pg (26.0-34.0); MEAN CORPUSCULAR VOLUME 97 fL (80-100); MONOCYTES # (AUTO) 1.2 K/uL (0.1-1.0); MONOCYTES % (AUTO) 8.4 % (2.0-9.0); NEUTROPHILS # (AUTO) 11.9 K/uL (1.8-7.7); PLATELET COUNT (AUTO) 269 K/uL (150-450); RED BLOOD CELL COUNT(AUTO) 2.32 MIL/uL (4.50-5.90)
[2022-07-30 08:00] VITALS: BP 97/51
[2022-07-30 08:25] LABS: ALBUMIN 1.8 g/dL (3.4-5.0); BILIRUBIN,TOTAL 0.6 mg/dL (0.1-1.0); CALCIUM, TOTAL 8.7 mg/dL (8.8-10.5); CREATININE 6.59 mg/dL (0.60-1.30); PHOSPHORUS 8.6 mg/dL (2.5-4.9); POTASSIUM 4.2 mmol/L (3.5-5.1); TOTAL PROTEIN, SERUM 6.7 g/dL (6.4-8.2)
[2022-07-30] MEDS: CARVEDILOL 6.25 MG TABLET PO SCH ×2 (09:00→20:17)
[2022-07-30] MEDS: DOCUSATE SODIUM 100 MG CAPSULE PO SCH ×2 (09:00→20:26)
[2022-07-30] MEDS: FOLIC ACID/VIT B COMPLEX AND C TABLET PO SCH (10:14)
[2022-07-30] MEDS: HEPARIN SODIUM,PORCINE 5,000 UNITS/ML VIAL SQ SCH ×2 (10:14→15:47)
[2022-07-30] MEDS: CALCITRIOL 0.25 MCG CAPSULE PO SCH (10:14)
[2022-07-30] MEDS: ATORVASTATIN CALCIUM 40 MG TABLET PO SCH (10:14)
[2022-07-30] MEDS: FAMOTIDINE 20 MG TABLET PO SCH (10:15)
[2022-07-30] MEDS: ASPIRIN 81 MG CHEWABLE TABLET PO SCH (10:15)
[2022-07-30 11:47] LABS: GLUCOSE,POINT OF CARE 106 MG/DL (70-110)
[2022-07-30 11:52] LABS: GLUCOSE,POINT OF CARE 91 MG/DL (70-110)
[2022-07-30 12:00] VITALS: BP 100/53
[2022-07-30] MEDS ORDERED: DEXTROSE 40% LEMON 37.5 GM/TUBE GEL [15 GM GLUCOSE] NG ONE (14:15)
[2022-07-30 16:00] VITALS: BP 109/53
[2022-07-30] MEDS: PROPOFOL 1000 MG/ISO-OSM 100 ML IV PRN (17:20)
[2022-07-30 20:00] VITALS: BP 117/50
[2022-07-30] MEDS: ACETAMINOPHEN 325 MG TABLET PO PRN (20:18)
[2022-07-30 21:54] LABS: GLUCOSE,POINT OF CARE 98 MG/DL (70-110)
[2022-07-31] VITALS (18 sets, daily range): BP systolic 103–159; BP diastolic 50–71
[2022-07-31] MEDS: HEPARIN SODIUM,PORCINE 5,000 UNITS/ML VIAL SQ SCH ×3 (00:16→15:16)
[2022-07-31 01:53] LABS: GLUCOSE,POINT OF CARE 104 MG/DL (70-110)
[2022-07-31] MEDS: PROPOFOL 1000 MG/ISO-OSM 100 ML IV PRN ×2 (05:02→23:06)
[2022-07-31 05:47] LABS: BASOPHILS % (AUTO) 0.6 % (0.0-2.0); EOSINOPHILS % (AUTO) 0.4 % (1.0-6.0); HEMATOCRIT 21.3 % (41-53); LYMPHOCYTES # (AUTO) 1.6 K/uL (1.0-4.8); LYMPHOCYTES % (AUTO) 11.1 % (22.0-44.0); MEAN CORPUSCULAR HEMOGLOBIN 31.8 pg (26.0-34.0); MEAN CORPUSCULAR HGB CONC 33.1 G/dL (31.0-37.0); MEAN CORPUSCULAR VOLUME 96 fL (80-100); MONOCYTES # (AUTO) 1.7 K/uL (0.1-1.0); MONOCYTES % (AUTO) 11.9 % (2.0-9.0); NEUTROPHILS # (AUTO) 11.1 K/uL (1.8-7.7); PLATELET COUNT (AUTO) 272 K/uL (150-450); RED BLOOD CELL COUNT(AUTO) 2.21 MIL/uL (4.50-5.90); RED CELL DISTRIBUTION WIDTH 15.9 % (11.5-14.5)
[2022-07-31 05:52] LABS: CALCIUM, TOTAL 8.6 mg/dL (8.8-10.5); CREATININE 8.23 mg/dL (0.60-1.30); POTASSIUM 4.2 mmol/L (3.5-5.1)
[2022-07-31] MEDS: PIPERACILLIN SODIUM/TAZOBACTAM 2.25 GM in DEXTROSE 5%-WATER 50 ML IV SCH ×3 (06:42→23:04)
[2022-07-31 07:28] LABS: GLUCOSE,POINT OF CARE 102 MG/DL (70-110)
[2022-07-31] MEDS: CARVEDILOL 6.25 MG TABLET PO SCH ×2 (09:00→21:36)
[2022-07-31] MEDS: FAMOTIDINE 20 MG TABLET PO SCH (09:34)
[2022-07-31] MEDS: DOCUSATE SODIUM 100 MG CAPSULE PO SCH ×2 (09:34→21:36)
[2022-07-31] MEDS: CALCITRIOL 0.25 MCG CAPSULE PO SCH (09:34)
[2022-07-31] MEDS: ATORVASTATIN CALCIUM 40 MG TABLET PO SCH (09:34)
[2022-07-31] MEDS: ASPIRIN 81 MG CHEWABLE TABLET PO SCH (09:34)
[2022-07-31] MEDS: FOLIC ACID/VIT B COMPLEX AND C TABLET PO SCH (09:34)
[2022-07-31] MEDS: EPOETIN ALFA 10,000 UNITS/ML VIAL SQ SCH (09:35)
[2022-07-31] MEDS ORDERED: SODIUM CHLORIDE 0.9% 2,000 ML ONE (09:45)
[2022-07-31] MEDS ORDERED: SODIUM CHLORIDE 0.9% 100 ML ONE (10:02)
[2022-07-31] MEDS ORDERED: IOHEXOL 350 MG/ML 100 ML VIAL ONE (10:02)
[2022-07-31] MEDS ORDERED: SODIUM CHLORIDE 0.9% 250 ML IV ONE (11:03)
[2022-07-31] MEDS ORDERED: EPINEPHrine 1:10,000 [1 MG/10 ML] SYRINGE IVP ONE (11:51)
[2022-07-31] MEDS ORDERED: 0.9% SODIUM CHLORIDE 1,000 ML BAG IV ONE (11:51)
[2022-07-31] MEDS ORDERED: CALCIUM CHLORIDE 100 MG/ML 10 ML SYRINGE IVP ONE (11:51)
[2022-07-31] MEDS ORDERED: SODIUM BICARBONATE [ADULT] 8.4% 50 MEQ/50 ML SYRINGE IVP ONE (11:51)
[2022-07-31] MEDS ORDERED: 0.9% SODIUM CHLORIDE 10 ML SYRINGE IVP ONE (11:51)
[2022-07-31 13:13] LABS: GLUCOSE,POINT OF CARE 90 MG/DL (70-110)
[2022-07-31 18:34] LABS: GLUCOSE,POINT OF CARE 103 MG/DL (70-110)
[2022-07-31 21:05] LABS: HEMATOCRIT 25.5 % (41-53); HEMOGLOBIN 8.3 g/dL (13.5-17.5)
[2022-07-31] MEDS: FentaNYL CIT 1000MCG/0.9% NACL 100 ML IV PRN (21:37)
[2022-08-01] MEDS: HEPARIN SODIUM,PORCINE 5,000 UNITS/ML VIAL SQ SCH ×4 (00:33→23:45)
[2022-08-01] MEDS ORDERED: SODIUM CHLORIDE 0.9% 100 ML ONE (01:44)
[2022-08-01] MEDS ORDERED: IOHEXOL 350 MG/ML 100 ML VIAL ONE (01:44)
[2022-08-01 03:48] LABS: GLUCOSE,POINT OF CARE 85 MG/DL (70-110)
[2022-08-01] MEDS: PROPOFOL 1000 MG/ISO-OSM 100 ML IV PRN ×2 (05:16→20:56)
[2022-08-01] MEDS ORDERED: SODIUM CHLORIDE 0.9% 500 ML IV ONE (05:18)
[2022-08-01] MEDS: PIPERACILLIN SODIUM/TAZOBACTAM 2.25 GM in DEXTROSE 5%-WATER 50 ML IV SCH ×3 (06:50→23:27)
[2022-08-01] MEDS: FentaNYL CIT 1000MCG/0.9% NACL 100 ML IV PRN (06:54)
[2022-08-01 08:09] LABS: BASOPHILS % (AUTO) 0.9 % (0.0-2.0); EOSINOPHILS % (AUTO) 1.8 % (1.0-6.0); HEMATOCRIT 24.6 % (41-53); HEMOGLOBIN 8.3 g/dL (13.5-17.5); LYMPHOCYTES # (AUTO) 1.8 K/uL (1.0-4.8); LYMPHOCYTES % (AUTO) 15.3 % (22.0-44.0); MEAN CORPUSCULAR HEMOGLOBIN 31.3 pg (26.0-34.0); MEAN CORPUSCULAR HGB CONC 33.7 G/dL (31.0-37.0); MEAN CORPUSCULAR VOLUME 93 fL (80-100); MONOCYTES # (AUTO) 1.4 K/uL (0.1-1.0); MONOCYTES % (AUTO) 12.2 % (2.0-9.0); NEUTROPHILS # (AUTO) 8.2 K/uL (1.8-7.7); NEUTROPHILS % (AUTO) 69.8 % (40.0-70.0); PLATELET COUNT (AUTO) 253 K/uL (150-450); RED BLOOD CELL COUNT(AUTO) 2.65 MIL/uL (4.50-5.90); RED CELL DISTRIBUTION WIDTH 17.7 % (11.5-14.5)
[2022-08-01 08:14] LABS: CALCIUM, TOTAL 8.5 mg/dL (8.8-10.5); CREATININE 5.25 mg/dL (0.60-1.30); POTASSIUM 3.8 mmol/L (3.5-5.1)
[2022-08-01] MEDS: DOCUSATE SODIUM 100 MG CAPSULE PO SCH ×2 (08:46→20:54)
[2022-08-01] MEDS: ASPIRIN 81 MG CHEWABLE TABLET PO SCH (08:46)
[2022-08-01] MEDS: FOLIC ACID/VIT B COMPLEX AND C TABLET PO SCH (08:47)
[2022-08-01] MEDS: ATORVASTATIN CALCIUM 40 MG TABLET PO SCH (08:47)
[2022-08-01] MEDS: CARVEDILOL 6.25 MG TABLET PO SCH ×2 (08:47→20:54)
[2022-08-01] MEDS: FAMOTIDINE 20 MG TABLET PO SCH (08:47)
[2022-08-01] MEDS: CALCITRIOL 0.25 MCG CAPSULE PO SCH (08:47)
[2022-08-01 12:28] LABS: GLUCOSE,POINT OF CARE 96 MG/DL (70-110)
[2022-08-01 17:57] LABS: GLUCOSE,POINT OF CARE 119 MG/DL (70-110)
[2022-08-01] MEDS: ACETAMINOPHEN 325 MG TABLET PO PRN (20:11)
[2022-08-01] MEDS ORDERED: METOPROLOL TARTRATE 25 MG TABLET NG SCH (21:00)
[2022-08-01] MEDS: SEVELAMER CARBONATE 800 MG POWDER PACKET NG SCH (21:21)
[2022-08-01] MEDS ORDERED: SODIUM CHLORIDE 0.9% 250 ML IV ONE (23:29)
[2022-08-02] VITALS (12 sets, daily range): BP systolic 118–158; BP diastolic 52–70
[2022-08-02 00:58] LABS: GLUCOSE,POINT OF CARE 116 MG/DL (70-110)
[2022-08-02] MEDS: PROPOFOL 1000 MG/ISO-OSM 100 ML IV PRN ×3 (01:45→20:18)
[2022-08-02 06:00] LABS: BASOPHILS % (AUTO) 0.8 % (0.0-2.0); EOSINOPHILS % (AUTO) 2.2 % (1.0-6.0); HEMATOCRIT 25.1 % (41-53); HEMOGLOBIN 8.4 g/dL (13.5-17.5); LYMPHOCYTES # (AUTO) 1.6 K/uL (1.0-4.8); LYMPHOCYTES % (AUTO) 12.4 % (22.0-44.0); MEAN CORPUSCULAR HEMOGLOBIN 31.6 pg (26.0-34.0); MEAN CORPUSCULAR HGB CONC 33.7 G/dL (31.0-37.0); MEAN CORPUSCULAR VOLUME 94 fL (80-100); MONOCYTES # (AUTO) 1.8 K/uL (0.1-1.0); MONOCYTES % (AUTO) 14.2 % (2.0-9.0); NEUTROPHILS # (AUTO) 9.1 K/uL (1.8-7.7); NEUTROPHILS % (AUTO) 70.4 % (40.0-70.0); PLATELET COUNT (AUTO) 244 K/uL (150-450); RED BLOOD CELL COUNT(AUTO) 2.67 MIL/uL (4.50-5.90); RED CELL DISTRIBUTION WIDTH 17.2 % (11.5-14.5)
[2022-08-02 06:06] LABS: CALCIUM, TOTAL 8.4 mg/dL (8.8-10.5); CREATININE 6.94 mg/dL (0.60-1.30)
[2022-08-02 06:58] LABS: GLUCOSE,POINT OF CARE 126 MG/DL (70-110)
[2022-08-02] MEDS: HEPARIN SODIUM,PORCINE 5,000 UNITS/ML VIAL SQ SCH ×3 (08:27→23:42)
[2022-08-02] MEDS: CALCITRIOL 0.25 MCG CAPSULE PO SCH (08:28)
[2022-08-02] MEDS: ATORVASTATIN CALCIUM 40 MG TABLET PO SCH (08:28)
[2022-08-02] MEDS: FOLIC ACID/VIT B COMPLEX AND C TABLET PO SCH (08:28)
[2022-08-02] MEDS: ASPIRIN 81 MG CHEWABLE TABLET PO SCH (08:28)
[2022-08-02] MEDS: CARVEDILOL 6.25 MG TABLET PO SCH ×2 (08:28→20:51)
[2022-08-02] MEDS: DOCUSATE SODIUM 100 MG CAPSULE PO SCH ×2 (08:28→20:51)
[2022-08-02] MEDS: SEVELAMER CARBONATE 800 MG POWDER PACKET NG SCH ×3 (08:29→19:23)
[2022-08-02] MEDS: FAMOTIDINE 20 MG TABLET PO SCH (08:29)
[2022-08-02] MEDS: PIPERACILLIN SODIUM/TAZOBACTAM 2.25 GM in DEXTROSE 5%-WATER 50 ML IV SCH ×3 (08:51→22:52)
[2022-08-02] MEDS: FentaNYL CIT 1000MCG/0.9% NACL 100 ML IV PRN (11:20)
[2022-08-02] MEDS ORDERED: SODIUM CHLORIDE 0.9% 1,000 ML ONE (12:24)
[2022-08-02 12:40] LABS: ABG BASE EXCESS -0.2 mmol/L (-2.0-3.0); ABG CARBOXYHEMOGLOBIN 0.3 % (0.0-1.5); ABG HCO3 24.5 mmol/L (22.0-26.0); ABG METHEMOGLOBIN 0.3 % (0.0-1.5); ABG OXYGEN CONTENT 13.2 mL/dL (15.0-23.0); ABG OXYGEN SATURATION 97.1 % (95.0-98.0); ABG OXYHEMOGLOBIN 96.5 % (94.0-100.0); ABG PCO2 37 mmHg (35-45); ABG PH 7.434 (7.35-7.450); ABG TOTAL HEMOGLOBIN 9.6 G/dL (12.0-18.0); SOURCE, BLOOD GAS ARTERIAL; TEMPERATURE, FAHRENHEIT, BG 98.6 FAHREN (96.0-98.6)
[2022-08-02 12:41] LABS: ABG A-A DIFF O2 75.8 mmHg (10-20.0); O2 DEVICE,BLOOD GAS VENTILATOR (ROOM AIR); PEEP,BG 5 cm H2O; SITE, BLOOD GAS RT BRACHIAL; VT, ABG 450 ml
[2022-08-02 12:54] LABS: GLUCOSE,POINT OF CARE 147 MG/DL (70-110)
[2022-08-02] MEDS: CLOPIDOGREL BISULFATE 75 MG TABLET NG SCH (13:58)
[2022-08-02] MEDS: EPOETIN ALFA 10,000 UNITS/ML VIAL SQ SCH (15:45)
[2022-08-02 19:34] LABS: GLUCOSE,POINT OF CARE 112 MG/DL (70-110)
[2022-08-02] MEDS: ACETAMINOPHEN 325 MG TABLET PO PRN (22:59)
[2022-08-03] MEDS: PROPOFOL 1000 MG/ISO-OSM 100 ML IV PRN ×4 (00:13→17:35)
[2022-08-03] MEDS ORDERED: ROCURONIUM BROMIDE 10 MG/ML 5 ML VIAL IVP ONE (03:45)
[2022-08-03 04:03] LABS: GLUCOSE,POINT OF CARE 135 MG/DL (70-110)
[2022-08-03] MEDS: FentaNYL CIT 1000MCG/0.9% NACL 100 ML IV PRN ×2 (05:28→20:24)
[2022-08-03 05:37] LABS: BASOPHILS % (AUTO) 0.7 % (0.0-2.0); EOSINOPHILS % (AUTO) 2.6 % (1.0-6.0); HEMATOCRIT 26.8 % (41-53); HEMOGLOBIN 8.9 g/dL (13.5-17.5); LYMPHOCYTES # (AUTO) 1.3 K/uL (1.0-4.8); LYMPHOCYTES % (AUTO) 10.2 % (22.0-44.0); MEAN CORPUSCULAR HEMOGLOBIN 31.2 pg (26.0-34.0); MEAN CORPUSCULAR HGB CONC 33.1 G/dL (31.0-37.0); MEAN CORPUSCULAR VOLUME 94 fL (80-100); MONOCYTES % (AUTO) 15.7 % (2.0-9.0); NEUTROPHILS # (AUTO) 8.9 K/uL (1.8-7.7); NEUTROPHILS % (AUTO) 70.8 % (40.0-70.0); PLATELET COUNT (AUTO) 256 K/uL (150-450); RED BLOOD CELL COUNT(AUTO) 2.85 MIL/uL (4.50-5.90); RED CELL DISTRIBUTION WIDTH 17.2 % (11.5-14.5)
[2022-08-03 05:48] LABS: CALCIUM, TOTAL 9.1 mg/dL (8.8-10.5); CREATININE 4.38 mg/dL (0.60-1.30); POTASSIUM 4.2 mmol/L (3.5-5.1)
[2022-08-03] MEDS: PIPERACILLIN SODIUM/TAZOBACTAM 2.25 GM in DEXTROSE 5%-WATER 50 ML IV SCH ×3 (06:15→23:17)
[2022-08-03] MEDS: HEPARIN SODIUM,PORCINE 5,000 UNITS/ML VIAL SQ SCH ×3 (08:01→23:55)
[2022-08-03] MEDS: SEVELAMER CARBONATE 800 MG POWDER PACKET NG SCH ×3 (08:02→17:32)
[2022-08-03] MEDS: FOLIC ACID/VIT B COMPLEX AND C TABLET PO SCH (08:02)
[2022-08-03] MEDS: CARVEDILOL 6.25 MG TABLET PO SCH ×2 (08:03→20:15)
[2022-08-03] MEDS: ASPIRIN 81 MG CHEWABLE TABLET PO SCH (08:03)
[2022-08-03] MEDS: ATORVASTATIN CALCIUM 40 MG TABLET PO SCH (08:03)
[2022-08-03] MEDS: CLOPIDOGREL BISULFATE 75 MG TABLET NG SCH (08:03)
[2022-08-03] MEDS: FAMOTIDINE 20 MG TABLET PO SCH (08:03)
[2022-08-03] MEDS: DOCUSATE SODIUM 100 MG CAPSULE PO SCH ×2 (08:04→20:31)
[2022-08-03] MEDS: CALCITRIOL 0.25 MCG CAPSULE PO SCH (09:14)
[2022-08-03] MEDS: METOCLOPRAMIDE HCL 5 MG/ML 2 ML VIAL IVP SCH ×2 (09:29→20:15)
[2022-08-03 13:02] LABS: GLUCOSE,POINT OF CARE 117 MG/DL (70-110)
[2022-08-03 13:02] LABS: GLUCOSE,POINT OF CARE 119 MG/DL (70-110)
[2022-08-03 18:32] LABS: GLUCOSE,POINT OF CARE 108 MG/DL (70-110)
[2022-08-03] MEDS: ACETAMINOPHEN 325 MG TABLET PO PRN (21:40)
[2022-08-04] VITALS (11 sets, daily range): BP systolic 104–154; BP diastolic 58–70
[2022-08-04] MEDS: PROPOFOL 1000 MG/ISO-OSM 100 ML IV PRN ×3 (00:59→10:44)
[2022-08-04 06:08] LABS: BASOPHILS % (AUTO) 0.8 % (0.0-2.0); EOSINOPHILS % (AUTO) 2.1 % (1.0-6.0); HEMATOCRIT 27.8 % (41-53); LYMPHOCYTES # (AUTO) 2.2 K/uL (1.0-4.8); MEAN CORPUSCULAR HEMOGLOBIN 30.4 pg (26.0-34.0); MEAN CORPUSCULAR HGB CONC 32.2 G/dL (31.0-37.0); MEAN CORPUSCULAR VOLUME 94 fL (80-100); MONOCYTES # (AUTO) 2.3 K/uL (0.1-1.0); MONOCYTES % (AUTO) 17.8 % (2.0-9.0); NEUTROPHILS # (AUTO) 8.2 K/uL (1.8-7.7); NEUTROPHILS % (AUTO) 62.3 % (40.0-70.0); PLATELET COUNT (AUTO) 278 K/uL (150-450); RED BLOOD CELL COUNT(AUTO) 2.95 MIL/uL (4.50-5.90); RED CELL DISTRIBUTION WIDTH 17.3 % (11.5-14.5)
[2022-08-04 06:20] LABS: CALCIUM, TOTAL 9.2 mg/dL (8.8-10.5); CREATININE 6.23 mg/dL (0.60-1.30); MAGNESIUM 2.5 mg/dL (1.80-2.40); PHOSPHORUS 7.6 mg/dL (2.5-4.9); POTASSIUM 4.1 mmol/L (3.5-5.1)
[2022-08-04 06:28] LABS: GLUCOSE,POINT OF CARE 137 MG/DL (70-110)
[2022-08-04] MEDS: FentaNYL CIT 1000MCG/0.9% NACL 100 ML IV PRN ×2 (07:01→19:14)
[2022-08-04] MEDS: PIPERACILLIN SODIUM/TAZOBACTAM 2.25 GM in DEXTROSE 5%-WATER 50 ML IV SCH ×3 (07:01→22:43)
[2022-08-04] MEDS: ASPIRIN 81 MG CHEWABLE TABLET PO SCH (08:49)
[2022-08-04] MEDS: ATORVASTATIN CALCIUM 40 MG TABLET PO SCH (08:49)
[2022-08-04] MEDS: CARVEDILOL 6.25 MG TABLET PO SCH ×2 (08:49→20:11)
[2022-08-04] MEDS: FAMOTIDINE 20 MG TABLET PO SCH (08:49)
[2022-08-04] MEDS: METOCLOPRAMIDE HCL 5 MG/ML 2 ML VIAL IVP SCH ×2 (08:49→20:11)
[2022-08-04] MEDS: HEPARIN SODIUM,PORCINE 5,000 UNITS/ML VIAL SQ SCH ×3 (08:50→23:14)
[2022-08-04] MEDS: SEVELAMER CARBONATE 800 MG POWDER PACKET NG SCH ×3 (08:50→16:41)
[2022-08-04] MEDS: CALCITRIOL 0.25 MCG CAPSULE PO SCH (08:50)
[2022-08-04] MEDS: CLOPIDOGREL BISULFATE 75 MG TABLET NG SCH (08:51)
[2022-08-04] MEDS: EPOETIN ALFA 10,000 UNITS/ML VIAL SQ SCH (08:51)
[2022-08-04] MEDS: FOLIC ACID/VIT B COMPLEX AND C TABLET PO SCH (08:51)
[2022-08-04] MEDS: DOCUSATE SODIUM 100 MG CAPSULE PO SCH ×2 (09:00→19:54)
[2022-08-04] MEDS ORDERED: SODIUM CHLORIDE 0.9% 1,000 ML ONE (10:12)
[2022-08-04 10:21] LABS: GLUCOSE,POINT OF CARE 108 MG/DL (70-110)
[2022-08-04 10:21] LABS: GLUCOSE,POINT OF CARE 96 MG/DL (70-110)
[2022-08-04] MEDS ORDERED: SODIUM CHLORIDE 0.9% 250 ML IV ONE ×2 (10:35→22:11)
[2022-08-04] MEDS: AMINO ACIDS/PROTEIN HYDROLYS 30 ML TUBE NG SCH ×2 (16:00→20:37)
[2022-08-04] MEDS: DEXMEDETOMIDINE HCL 400 MCG in SODIUM CHLORIDE 0.9% 96 ML IV PRN (17:49)
[2022-08-04 18:41] LABS: GLUCOSE,POINT OF CARE 129 MG/DL (70-110)
[2022-08-04] MEDS: INSULIN LISPRO 100 UNITS/ML SQ PRN (23:42)
[2022-08-05 00:41] LABS: GLUCOSE,POINT OF CARE 165 MG/DL (70-110)
[2022-08-05] MEDS: DEXMEDETOMIDINE HCL 400 MCG in SODIUM CHLORIDE 0.9% 96 ML IV PRN (02:57)
[2022-08-05] MEDS: INSULIN LISPRO 100 UNITS/ML SQ PRN ×2 (05:53→12:28)
[2022-08-05] MEDS: PIPERACILLIN SODIUM/TAZOBACTAM 2.25 GM in DEXTROSE 5%-WATER 50 ML IV SCH ×3 (06:00→23:53)
[2022-08-05 06:02] LABS: MAGNESIUM 2.3 mg/dL (1.80-2.40)
[2022-08-05 06:11] LABS: GLUCOSE,POINT OF CARE 149 MG/DL (70-110)
[2022-08-05 06:32] LABS: HEMATOCRIT 27.7 % (41-53); HEMOGLOBIN 8.9 g/dL (13.5-17.5); MEAN CORPUSCULAR HEMOGLOBIN 30.4 pg (26.0-34.0); MEAN CORPUSCULAR HGB CONC 32.3 G/dL (31.0-37.0); MEAN CORPUSCULAR VOLUME 94 fL (80-100); PLATELET COUNT (AUTO) 296 K/uL (150-450); RED BLOOD CELL COUNT(AUTO) 2.94 MIL/uL (4.50-5.90); RED CELL DISTRIBUTION WIDTH 16.9 % (11.5-14.5)
[2022-08-05 06:58] LABS: CALCIUM, TOTAL 9.3 mg/dL (8.8-10.5); CREATININE 4.51 mg/dL (0.60-1.30); PHOSPHORUS 6.7 mg/dL (2.5-4.9); POTASSIUM 4.2 mmol/L (3.5-5.1)
[2022-08-05] MEDS: HEPARIN SODIUM,PORCINE 5,000 UNITS/ML VIAL SQ SCH ×3 (08:12→23:54)
[2022-08-05] MEDS: CALCITRIOL 0.25 MCG CAPSULE PO SCH (08:12)
[2022-08-05] MEDS: CLOPIDOGREL BISULFATE 75 MG TABLET NG SCH (08:13)
[2022-08-05] MEDS: ASPIRIN 81 MG CHEWABLE TABLET PO SCH (08:13)
[2022-08-05] MEDS: CARVEDILOL 6.25 MG TABLET PO SCH ×2 (08:13→20:46)
[2022-08-05] MEDS: FAMOTIDINE 20 MG TABLET PO SCH (08:13)
[2022-08-05] MEDS: ATORVASTATIN CALCIUM 40 MG TABLET PO SCH (08:13)
[2022-08-05] MEDS: FOLIC ACID/VIT B COMPLEX AND C TABLET PO SCH (08:14)
[2022-08-05] MEDS: METOCLOPRAMIDE HCL 5 MG/ML 2 ML VIAL IVP SCH ×2 (08:14→20:46)
[2022-08-05] MEDS: SEVELAMER CARBONATE 800 MG POWDER PACKET NG SCH ×3 (08:14→18:18)
[2022-08-05] MEDS: AMINO ACIDS/PROTEIN HYDROLYS 30 ML TUBE NG SCH ×3 (08:16→20:47)
[2022-08-05 08:54] LABS: BAND NEUTROPHILS % (MANUAL) 4 % (0-5); EOSINOPHILS % (MANUAL) 2 % (1-6); LYMPHOCYTES % (MANUAL) 26 % (22-44); METAMYELOCYTES % 1 % (0-0); MONOCYTES % (MANUAL) 6 % (2-9); SEGMENTED NEUTROPHILS % 61 % (40-70)
[2022-08-05] MEDS: DOCUSATE SODIUM 100 MG CAPSULE PO SCH ×2 (09:00→20:46)
[2022-08-05 12:26] LABS: GLUCOSE,POINT OF CARE 171 MG/DL (70-110)
[2022-08-05 17:51] LABS: GLUCOSE,POINT OF CARE 169 MG/DL (70-110)
[2022-08-06] MEDS ORDERED: SODIUM CHLORIDE 0.9% 250 ML IV ONE
[2022-08-06] MEDS: INSULIN LISPRO 100 UNITS/ML SQ PRN ×5 (00:10→23:58)
[2022-08-06 02:31] LABS: GLUCOSE,POINT OF CARE 156 MG/DL (70-110)
[2022-08-06 05:45] LABS: BASOPHILS % (AUTO) 0.6 % (0.0-2.0); EOSINOPHILS % (AUTO) 1.5 % (1.0-6.0); HEMATOCRIT 28.1 % (41-53); HEMOGLOBIN 9.1 g/dL (13.5-17.5); LYMPHOCYTES # (AUTO) 2.2 K/uL (1.0-4.8); LYMPHOCYTES % (AUTO) 13.9 % (22.0-44.0); MEAN CORPUSCULAR HEMOGLOBIN 30.5 pg (26.0-34.0); MEAN CORPUSCULAR HGB CONC 32.5 G/dL (31.0-37.0); MEAN CORPUSCULAR VOLUME 94 fL (80-100); MONOCYTES # (AUTO) 2.6 K/uL (0.1-1.0); MONOCYTES % (AUTO) 16.7 % (2.0-9.0); NEUTROPHILS # (AUTO) 10.6 K/uL (1.8-7.7); NEUTROPHILS % (AUTO) 67.3 % (40.0-70.0); PLATELET COUNT (AUTO) 321 K/uL (150-450); RED BLOOD CELL COUNT(AUTO) 2.99 MIL/uL (4.50-5.90); RED CELL DISTRIBUTION WIDTH 16.8 % (11.5-14.5)
[2022-08-06 05:59] LABS: ALBUMIN 1.5 g/dL (3.4-5.0); BILIRUBIN,TOTAL 0.6 mg/dL (0.1-1.0); CALCIUM, TOTAL 9.2 mg/dL (8.8-10.5); CREATININE 5.98 mg/dL (0.60-1.30); TOTAL PROTEIN, SERUM 7.1 g/dL (6.4-8.2)
[2022-08-06] MEDS: PIPERACILLIN SODIUM/TAZOBACTAM 2.25 GM in DEXTROSE 5%-WATER 50 ML IV SCH ×3 (06:57→23:56)
[2022-08-06] MEDS: FentaNYL CIT 1000MCG/0.9% NACL 100 ML IV PRN (06:58)
[2022-08-06] MEDS: DEXMEDETOMIDINE HCL 400 MCG in SODIUM CHLORIDE 0.9% 96 ML IV PRN ×2 (08:52→18:42)
[2022-08-06] MEDS: AMINO ACIDS/PROTEIN HYDROLYS 30 ML TUBE NG SCH ×3 (09:00→21:23)
[2022-08-06] MEDS: CALCITRIOL 0.25 MCG CAPSULE PO SCH (09:18)
[2022-08-06] MEDS: SEVELAMER CARBONATE 800 MG POWDER PACKET NG SCH ×3 (09:19→18:41)
[2022-08-06] MEDS: FOLIC ACID/VIT B COMPLEX AND C TABLET PO SCH (09:19)
[2022-08-06] MEDS: ASPIRIN 81 MG CHEWABLE TABLET PO SCH (09:19)
[2022-08-06] MEDS: DOCUSATE SODIUM 100 MG CAPSULE PO SCH ×2 (09:19→21:00)
[2022-08-06] MEDS: ATORVASTATIN CALCIUM 40 MG TABLET PO SCH (09:20)
[2022-08-06] MEDS: FAMOTIDINE 20 MG TABLET PO SCH (09:20)
[2022-08-06] MEDS: CARVEDILOL 6.25 MG TABLET PO SCH ×2 (09:20→21:23)
[2022-08-06] MEDS: HEPARIN SODIUM,PORCINE 5,000 UNITS/ML VIAL SQ SCH ×3 (09:20→23:57)
[2022-08-06] MEDS: CLOPIDOGREL BISULFATE 75 MG TABLET NG SCH (09:20)
[2022-08-06] MEDS: METOCLOPRAMIDE HCL 5 MG/ML 2 ML VIAL IVP SCH ×2 (09:21→21:23)
[2022-08-06 09:56] LABS: GLUCOSE,POINT OF CARE 143 MG/DL (70-110)
[2022-08-06 19:26] LABS: GLUCOSE,POINT OF CARE 199 MG/DL (70-110)
[2022-08-06 19:26] LABS: GLUCOSE,POINT OF CARE 166 MG/DL (70-110)
[2022-08-07] VITALS (12 sets, daily range): BP systolic 87–155; BP diastolic 39–76
[2022-08-07] MEDS: FentaNYL CIT 1000MCG/0.9% NACL 100 ML IV PRN (01:31)
[2022-08-07 02:32] LABS: GLUCOSE,POINT OF CARE 195 MG/DL (70-110)
[2022-08-07] MEDS: INSULIN LISPRO 100 UNITS/ML SQ PRN ×2 (06:06→18:31)
[2022-08-07] MEDS: PIPERACILLIN SODIUM/TAZOBACTAM 2.25 GM in DEXTROSE 5%-WATER 50 ML IV SCH ×2 (06:06→15:15)
[2022-08-07] MEDS ORDERED: SODIUM CHLORIDE 0.9% 250 ML IV ONE (06:15)
[2022-08-07 08:11] LABS: GLUCOSE,POINT OF CARE 154 MG/DL (70-110)
[2022-08-07] MEDS: ATORVASTATIN CALCIUM 40 MG TABLET PO SCH (08:17)
[2022-08-07] MEDS: HEPARIN SODIUM,PORCINE 5,000 UNITS/ML VIAL SQ SCH ×2 (08:17→15:15)
[2022-08-07] MEDS: CARVEDILOL 6.25 MG TABLET PO SCH (08:17)
[2022-08-07] MEDS: FOLIC ACID/VIT B COMPLEX AND C TABLET PO SCH (08:17)
[2022-08-07] MEDS: CLOPIDOGREL BISULFATE 75 MG TABLET NG SCH (08:18)
[2022-08-07] MEDS: FAMOTIDINE 20 MG TABLET PO SCH (08:18)
[2022-08-07] MEDS: METOCLOPRAMIDE HCL 5 MG/ML 2 ML VIAL IVP SCH ×2 (08:18→21:18)
[2022-08-07] MEDS: EPOETIN ALFA 10,000 UNITS/ML VIAL SQ SCH (08:18)
[2022-08-07] MEDS: AMINO ACIDS/PROTEIN HYDROLYS 30 ML TUBE NG SCH ×3 (08:19→21:19)
[2022-08-07] MEDS: CALCITRIOL 0.25 MCG CAPSULE PO SCH (08:19)
[2022-08-07] MEDS: DOCUSATE SODIUM 100 MG CAPSULE PO SCH ×2 (08:19→21:00)
[2022-08-07] MEDS: ASPIRIN 81 MG CHEWABLE TABLET PO SCH (08:19)
[2022-08-07] MEDS: SEVELAMER CARBONATE 800 MG POWDER PACKET NG SCH ×3 (08:19→17:37)
[2022-08-07] MEDS ORDERED: MANNITOL 25%-12.5 GM/50 ML VIAL IVP ONE (16:21)
[2022-08-07] MEDS ORDERED: HEPARIN SODIUM,PORCINE 1,000 UNITS/ML VIAL IVP ONE (16:21)
[2022-08-07 17:01] LABS: GLUCOSE,POINT OF CARE 115 MG/DL (70-110)
[2022-08-07] MEDS: DEXMEDETOMIDINE HCL 400 MCG in SODIUM CHLORIDE 0.9% 96 ML IV PRN (18:37)
[2022-08-07 20:31] LABS: GLUCOSE,POINT OF CARE 151 MG/DL (70-110)
[2022-08-07] MEDS: CARVEDILOL 3.125 MG TABLET PO SCH (21:19)
[2022-08-08] MEDS: PIPERACILLIN SODIUM/TAZOBACTAM 2.25 GM in DEXTROSE 5%-WATER 50 ML IV SCH ×4 (00:10→23:19)
[2022-08-08] MEDS: HEPARIN SODIUM,PORCINE 5,000 UNITS/ML VIAL SQ SCH ×4 (00:10→23:20)
[2022-08-08] MEDS: ACETAMINOPHEN 325 MG TABLET PO PRN (00:10)
[2022-08-08] MEDS: INSULIN LISPRO 100 UNITS/ML SQ PRN ×2 (00:11→12:49)
[2022-08-08] MEDS: FentaNYL CIT 1000MCG/0.9% NACL 100 ML IV PRN (00:11)
[2022-08-08 04:36] LABS: GLUCOSE,POINT OF CARE 146 MG/DL (70-110)
[2022-08-08 05:57] LABS: BASOPHILS % (AUTO) 0.8 % (0.0-2.0); EOSINOPHILS % (AUTO) 1.1 % (1.0-6.0); HEMATOCRIT 27.5 % (41-53); HEMOGLOBIN 9.1 g/dL (13.5-17.5); LYMPHOCYTES % (AUTO) 11.5 % (22.0-44.0); MEAN CORPUSCULAR HEMOGLOBIN 30.5 pg (26.0-34.0); MEAN CORPUSCULAR VOLUME 93 fL (80-100); MONOCYTES # (AUTO) 2.3 K/uL (0.1-1.0); NEUTROPHILS # (AUTO) 12.9 K/uL (1.8-7.7); NEUTROPHILS % (AUTO) 73.6 % (40.0-70.0); PLATELET COUNT (AUTO) 392 K/uL (150-450); RED BLOOD CELL COUNT(AUTO) 2.97 MIL/uL (4.50-5.90); RED CELL DISTRIBUTION WIDTH 17.2 % (11.5-14.5)
[2022-08-08 06:10] LABS: CREATININE 5.02 mg/dL (0.60-1.30); POTASSIUM 3.6 mmol/L (3.5-5.1)
[2022-08-08 06:11] LABS: GLUCOSE,POINT OF CARE 125 MG/DL (70-110)
[2022-08-08] MEDS: SEVELAMER CARBONATE 800 MG POWDER PACKET NG SCH ×3 (08:22→16:36)
[2022-08-08] MEDS: FOLIC ACID/VIT B COMPLEX AND C TABLET PO SCH (08:22)
[2022-08-08] MEDS: CALCITRIOL 0.25 MCG CAPSULE PO SCH (08:23)
[2022-08-08] MEDS: FAMOTIDINE 20 MG TABLET PO SCH (08:23)
[2022-08-08] MEDS: ASPIRIN 81 MG CHEWABLE TABLET PO SCH (08:23)
[2022-08-08] MEDS: ATORVASTATIN CALCIUM 40 MG TABLET PO SCH (08:24)
[2022-08-08] MEDS: CLOPIDOGREL BISULFATE 75 MG TABLET NG SCH (08:24)
[2022-08-08] MEDS: METOCLOPRAMIDE HCL 5 MG/ML 2 ML VIAL IVP SCH ×2 (08:24→20:29)
[2022-08-08] MEDS: DOCUSATE SODIUM 100 MG CAPSULE PO SCH ×2 (08:25→20:26)
[2022-08-08] MEDS: CARVEDILOL 3.125 MG TABLET PO SCH (08:25)
[2022-08-08] MEDS: AMINO ACIDS/PROTEIN HYDROLYS 30 ML TUBE NG SCH ×3 (08:25→20:25)
[2022-08-08 12:14] LABS: ABG BASE EXCESS -0.1 mmol/L (-2.0-3.0); ABG CARBOXYHEMOGLOBIN 0.5 % (0.0-1.5); ABG HCO3 24.3 mmol/L (22.0-26.0); ABG METHEMOGLOBIN 0.3 % (0.0-1.5); ABG OXYGEN CONTENT 13.9 mL/dL (15.0-23.0); ABG OXYGEN SATURATION 93.6 % (95.0-98.0); ABG OXYHEMOGLOBIN 92.9 % (94.0-100.0); ABG PCO2 43 mmHg (35-45); ABG PH 7.382 (7.35-7.450); ABG TOTAL HEMOGLOBIN 10.6 G/dL (12.0-18.0); SOURCE, BLOOD GAS ARTERIAL; TEMPERATURE, FAHRENHEIT, BG 98.6 FAHREN (96.0-98.6)
[2022-08-08 12:15] LABS: ABG A-A DIFF O2 92.4 mmHg (10-20.0); CPAP, BG 0 cm H2O; O2 DEVICE,BLOOD GAS VENTILATOR (ROOM AIR); PRESSURE SUPPORT, BG 8 cm H2O; SITE, BLOOD GAS LFT BRACHIAL; SPONTANEOUS VT, BG 400 ml; VENT MODE, BG CPAP (ROOM AIR)
[2022-08-08 17:46] LABS: GLUCOSE,POINT OF CARE 160 MG/DL (70-110)
[2022-08-08 18:37] LABS: GLUCOSE,POINT OF CARE 83 MG/DL (70-110)
[2022-08-08] MEDS: HydrALAZINE HCL 20 MG/ML VIAL IVP PRN (20:32)
[2022-08-09] VITALS (12 sets, daily range): BP systolic 131–171; BP diastolic 67–89
[2022-08-09] MEDS: HydrALAZINE HCL 20 MG/ML VIAL IVP PRN (02:36)
[2022-08-09 05:55] LABS: BASOPHILS % (AUTO) 0.9 % (0.0-2.0); HEMATOCRIT 30.1 % (41-53); HEMOGLOBIN 9.8 g/dL (13.5-17.5); LYMPHOCYTES # (AUTO) 2.6 K/uL (1.0-4.8); LYMPHOCYTES % (AUTO) 14.2 % (22.0-44.0); MEAN CORPUSCULAR HEMOGLOBIN 30.4 pg (26.0-34.0); MEAN CORPUSCULAR HGB CONC 32.5 G/dL (31.0-37.0); MEAN CORPUSCULAR VOLUME 94 fL (80-100); MONOCYTES # (AUTO) 2.6 K/uL (0.1-1.0); NEUTROPHILS # (AUTO) 12.8 K/uL (1.8-7.7); NEUTROPHILS % (AUTO) 69.9 % (40.0-70.0); PLATELET COUNT (AUTO) 451 K/uL (150-450); RED BLOOD CELL COUNT(AUTO) 3.22 MIL/uL (4.50-5.90)
[2022-08-09 06:02] LABS: CALCIUM, TOTAL 9.2 mg/dL (8.8-10.5); CREATININE 6.82 mg/dL (0.60-1.30); POTASSIUM 3.3 mmol/L (3.5-5.1)
[2022-08-09] MEDS: PIPERACILLIN SODIUM/TAZOBACTAM 2.25 GM in DEXTROSE 5%-WATER 50 ML IV SCH ×3 (06:37→23:33)
[2022-08-09 07:26] LABS: GLUCOSE,POINT OF CARE 92 MG/DL (70-110)
[2022-08-09] MEDS: SEVELAMER CARBONATE 800 MG POWDER PACKET NG SCH ×3 (08:00→18:00)
[2022-08-09] MEDS: CLOPIDOGREL BISULFATE 75 MG TABLET NG SCH (08:49)
[2022-08-09] MEDS: METOCLOPRAMIDE HCL 5 MG/ML 2 ML VIAL IVP SCH ×2 (08:51→20:47)
[2022-08-09] MEDS: HEPARIN SODIUM,PORCINE 5,000 UNITS/ML VIAL SQ SCH ×3 (08:51→23:57)
[2022-08-09] MEDS: EPOETIN ALFA 10,000 UNITS/ML VIAL SQ SCH (08:52)
[2022-08-09] MEDS: AMINO ACIDS/PROTEIN HYDROLYS 30 ML TUBE NG SCH (09:00)
[2022-08-09] MEDS: DOCUSATE SODIUM 100 MG CAPSULE PO SCH ×2 (09:00→21:00)
[2022-08-09] MEDS: ASPIRIN 81 MG CHEWABLE TABLET PO SCH (09:00)
[2022-08-09 09:06] LABS: GLUCOSE,POINT OF CARE 85 MG/DL (70-110)
[2022-08-09] MEDS ORDERED: SODIUM CHLORIDE 0.9% 2,000 ML ONE (10:06)
[2022-08-09 13:10] LABS: GLUCOSE,POINT OF CARE 109 MG/DL (70-110)
[2022-08-09] MEDS ORDERED: HEPARIN SODIUM,PORCINE 1,000 UNITS/ML VIAL IVCATH ONE ×2 (14:00)
[2022-08-09] MEDS ORDERED: SODIUM CHLORIDE 0.9% 250 ML IV ONE (15:40)
[2022-08-09] MEDS: FOLIC ACID/VIT B COMPLEX AND C TABLET PO SCH (16:17)
[2022-08-09] MEDS: FAMOTIDINE 20 MG TABLET PO SCH (16:17)
[2022-08-09] MEDS: ATORVASTATIN CALCIUM 40 MG TABLET PO SCH (16:17)
[2022-08-09] MEDS: CALCITRIOL 0.25 MCG CAPSULE PO SCH (16:17)
[2022-08-09] MEDS ORDERED: HEPARIN SODIUM,PORCINE 1,000 UNITS/ML VIAL IVP ONE (16:48)
[2022-08-09] MEDS: ACETAMINOPHEN 325 MG TABLET PO PRN (23:49)
[2022-08-10 00:20] VITALS: BP 159/73
[2022-08-10 00:46] LABS: GLUCOMETER DEV NAME(LOC) 5S.1B; GLUCOSE,POINT OF CARE 110 MG/DL (70-110)
[2022-08-10 04:13] VITALS: BP 154/77
[2022-08-10] MEDS: PIPERACILLIN SODIUM/TAZOBACTAM 2.25 GM in DEXTROSE 5%-WATER 50 ML IV SCH ×3 (06:04→22:17)
[2022-08-10 07:00] LABS: BASOPHILS % (AUTO) 0.8 % (0.0-2.0); EOSINOPHILS % (AUTO) 0.3 % (1.0-6.0); HEMOGLOBIN 10.9 g/dL (13.5-17.5); LYMPHOCYTES # (AUTO) 1.8 K/uL (1.0-4.8); LYMPHOCYTES % (AUTO) 10.2 % (22.0-44.0); MEAN CORPUSCULAR HEMOGLOBIN 29.8 pg (26.0-34.0); MEAN CORPUSCULAR HGB CONC 32.1 G/dL (31.0-37.0); MEAN CORPUSCULAR VOLUME 93 fL (80-100); MONOCYTES # (AUTO) 2.3 K/uL (0.1-1.0); MONOCYTES % (AUTO) 13.3 % (2.0-9.0); NEUTROPHILS # (AUTO) 13.2 K/uL (1.8-7.7); NEUTROPHILS % (AUTO) 75.4 % (40.0-70.0); PLATELET COUNT (AUTO) 468 K/uL (150-450); RED BLOOD CELL COUNT(AUTO) 3.67 MIL/uL (4.50-5.90); RED CELL DISTRIBUTION WIDTH 17.1 % (11.5-14.5)
[2022-08-10 07:37] LABS: CALCIUM, TOTAL 9.6 mg/dL (8.8-10.5); CREATININE 4.77 mg/dL (0.60-1.30); POTASSIUM 3.4 mmol/L (3.5-5.1)
[2022-08-10 08:26] LABS: GLUCOMETER DEV NAME(LOC) 5S.1B; GLUCOSE,POINT OF CARE 95 MG/DL (70-110)
[2022-08-10 08:36] VITALS: BP 160/71
[2022-08-10] MEDS: AMINO ACIDS/PROTEIN HYDROLYS 30 ML TUBE PO SCH ×3 (09:00→18:00)
[2022-08-10] MEDS: FOLIC ACID/VIT B COMPLEX AND C TABLET PO SCH (10:33)
[2022-08-10] MEDS: SEVELAMER CARBONATE 800 MG POWDER PACKET NG SCH ×3 (10:33→18:00)
[2022-08-10] MEDS: HEPARIN SODIUM,PORCINE 5,000 UNITS/ML VIAL SQ SCH ×2 (10:33→16:18)
[2022-08-10] MEDS: ATORVASTATIN CALCIUM 40 MG TABLET PO SCH (10:34)
[2022-08-10] MEDS: ASPIRIN 81 MG CHEWABLE TABLET PO SCH (10:34)
[2022-08-10] MEDS: METOCLOPRAMIDE HCL 5 MG/ML 2 ML VIAL IVP SCH ×2 (10:34→21:16)
[2022-08-10] MEDS: FAMOTIDINE 20 MG TABLET PO SCH (10:34)
[2022-08-10] MEDS: CALCITRIOL 0.25 MCG CAPSULE PO SCH (10:34)
[2022-08-10] MEDS: CLOPIDOGREL BISULFATE 75 MG TABLET NG SCH (10:35)
[2022-08-10] MEDS: DOCUSATE SODIUM 100 MG CAPSULE PO SCH ×2 (10:35→20:06)
[2022-08-10 12:21] LABS: GLUCOMETER DEV NAME(LOC) 5N.1C; GLUCOSE,POINT OF CARE 88 MG/DL (70-110)
[2022-08-10 16:07] VITALS: BP 141/72
[2022-08-10 20:38] VITALS: BP 154/83
[2022-08-10 21:41] LABS: GLUCOMETER DEV NAME(LOC) 5S.1B; GLUCOSE,POINT OF CARE 94 MG/DL (70-110)
[2022-08-10 21:42] LABS: GLUCOMETER DEV NAME(LOC) 5S.1B; GLUCOSE,POINT OF CARE 91 MG/DL (70-110)
[2022-08-11] VITALS (20 sets, daily range): BP systolic 106–172; BP diastolic 59–96
[2022-08-11] MEDS: HEPARIN SODIUM,PORCINE 5,000 UNITS/ML VIAL SQ SCH ×3 (00:47→16:00)
[2022-08-11] MEDS ORDERED: SODIUM CHLORIDE 0.9% 0 ML ONE (05:12)
[2022-08-11 06:18] LABS: BASOPHILS % (AUTO) 0.9 % (0.0-2.0); EOSINOPHILS % (AUTO) 0.1 % (1.0-6.0); HEMATOCRIT 34.4 % (41-53); LYMPHOCYTES # (AUTO) 2.4 K/uL (1.0-4.8); LYMPHOCYTES % (AUTO) 13.2 % (22.0-44.0); MEAN CORPUSCULAR HEMOGLOBIN 29.8 pg (26.0-34.0); MEAN CORPUSCULAR VOLUME 93 fL (80-100); MONOCYTES # (AUTO) 1.9 K/uL (0.1-1.0); MONOCYTES % (AUTO) 10.8 % (2.0-9.0); NEUTROPHILS # (AUTO) 13.5 K/uL (1.8-7.7); PLATELET COUNT (AUTO) 490 K/uL (150-450); RED CELL DISTRIBUTION WIDTH 17.1 % (11.5-14.5)
[2022-08-11 06:33] LABS: CALCIUM, TOTAL 9.6 mg/dL (8.8-10.5); CREATININE 6.46 mg/dL (0.60-1.30); POTASSIUM 3.5 mmol/L (3.5-5.1)
[2022-08-11] MEDS: PIPERACILLIN SODIUM/TAZOBACTAM 2.25 GM in DEXTROSE 5%-WATER 50 ML IV SCH ×2 (07:00→15:00)
[2022-08-11] MEDS: SEVELAMER CARBONATE 800 MG POWDER PACKET NG SCH ×3 (08:00→18:31)
[2022-08-11] MEDS: AMINO ACIDS/PROTEIN HYDROLYS 30 ML TUBE PO SCH ×3 (08:00→18:31)
[2022-08-11] MEDS: METOCLOPRAMIDE HCL 5 MG/ML 2 ML VIAL IVP SCH ×2 (09:00→20:46)
[2022-08-11] MEDS ORDERED: AMIODARONE HCL 150 MG in DEXTROSE 5%-WATER 97 ML IV ONE (10:15)
[2022-08-11] MEDS ORDERED: AMIODARONE HCL 360 MG in DEXTROSE 5%-WATER 242.8 ML IV ONE (10:30)
[2022-08-11] MEDS: DOCUSATE SODIUM 100 MG CAPSULE PO SCH ×2 (11:13→20:47)
[2022-08-11] MEDS: ATORVASTATIN CALCIUM 40 MG TABLET PO SCH (11:14)
[2022-08-11] MEDS: CALCITRIOL 0.25 MCG CAPSULE PO SCH (11:14)
[2022-08-11] MEDS: FAMOTIDINE 20 MG TABLET PO SCH (11:14)
[2022-08-11] MEDS: ASPIRIN 81 MG CHEWABLE TABLET PO SCH (11:14)
[2022-08-11] MEDS: FOLIC ACID/VIT B COMPLEX AND C TABLET PO SCH (11:14)
[2022-08-11] MEDS: CLOPIDOGREL BISULFATE 75 MG TABLET NG SCH (11:18)
[2022-08-11] MEDS ORDERED: VANCOMYCIN 1GM/WATER(PEG/NADA) 200 ML IV ONE (12:00)
[2022-08-11 14:36] LABS: GLUCOMETER DEV NAME(LOC) 5S.1B; GLUCOSE,POINT OF CARE 99 MG/DL (70-110)
[2022-08-11] MEDS ORDERED: VERAPAMIL HCL 2.5 MG/ML 2 ML VIAL ONE (14:45)
[2022-08-11] MEDS ORDERED: LIDOCAINE/PF 1% 30 ML VIAL ONE (14:45)
[2022-08-11] MEDS ORDERED: NITROGLYCERIN 50 MG/D5% WATER 250 ML ONE (14:45)
[2022-08-11] MEDS ORDERED: IOHEXOL 300 MG/ML 100 ML VIAL ONE (14:45)
[2022-08-11] MEDS ORDERED: SODIUM BICARBONATE 50 MEQ/50 ML VIAL ONE (14:45)
[2022-08-11] MEDS ORDERED: HEPARIN SODIUM 1000 UNITS/NS 1,000 ML ONE (14:45)
[2022-08-11] MEDS ORDERED: FentaNYL CITRATE PF 100 MCG/2 ML VIAL ONE (15:36)
[2022-08-11] MEDS ORDERED: MIDAZOLAM HCL 2 MG/2 ML VIAL ONE (15:36)
[2022-08-11] MEDS ORDERED: HEPARIN SODIUM 1000 UNITS/NS 1,000 ML IARTER ONE (16:00)
[2022-08-11] MEDS ORDERED: VERAPAMIL HCL 2.5 MG/ML 2 ML VIAL IARTER ONE (16:00)
[2022-08-11] MEDS ORDERED: MIDAZOLAM HCL 2 MG/2 ML VIAL IVP ONE ×2 (16:00→16:15)
[2022-08-11] MEDS ORDERED: NITROGLYCERIN/D5W 50 MG/250 ML IV BOTTLE IARTER ONE (16:00)
[2022-08-11] MEDS ORDERED: LIDOCAINE 1% 30 ML/SOD BICARB 8.4% 4 ML SQ ONE (16:00)
[2022-08-11] MEDS ORDERED: HEPARIN SODIUM,PORCINE 1,000 UNITS/ML 10 ML VIAL IARTER ONE (16:00)
[2022-08-11] MEDS ORDERED: FentaNYL CITRATE PF 100 MCG/2 ML VIAL IVP ONE ×2 (16:00→16:15)
[2022-08-11] MEDS ORDERED: IOHEXOL 300 MG/ML 100 ML VIAL IARTER ONE (16:00)
[2022-08-11] MEDS ORDERED: LABETALOL HCL 5 MG/ML 20 ML VIAL IVP ONE ×2 (16:15→16:34)
[2022-08-11] MEDS ORDERED: HydrALAZINE HCL 20 MG/ML VIAL IVP ONE (16:15)
[2022-08-11] MEDS ORDERED: HydrALAZINE HCL 20 MG/ML VIAL ONE (16:30)
[2022-08-11] MEDS ORDERED: AMIODARONE HCL 540 MG in DEXTROSE 5%-WATER 239.2 ML IV ONE (16:30)
[2022-08-11] MEDS: EPOETIN ALFA 10,000 UNITS/ML VIAL SQ SCH (18:26)
[2022-08-11 19:20] LABS: GLUCOMETER DEV NAME(LOC) 5S.1B; GLUCOSE,POINT OF CARE 144 MG/DL (70-110)
[2022-08-12] MEDS: PIPERACILLIN SODIUM/TAZOBACTAM 2.25 GM in DEXTROSE 5%-WATER 50 ML IV SCH ×3 (00:36→17:34)
[2022-08-12] MEDS: HEPARIN SODIUM,PORCINE 5,000 UNITS/ML VIAL SQ SCH ×3 (00:39→17:32)
[2022-08-12 00:52] VITALS: BP 141/71
[2022-08-12 05:33] VITALS: BP 136/68
[2022-08-12 06:29] LABS: BASOPHILS % (AUTO) 0.8 % (0.0-2.0); EOSINOPHILS % (AUTO) 0.6 % (1.0-6.0); HEMATOCRIT 30.9 % (41-53); LYMPHOCYTES % (AUTO) 13.6 % (22.0-44.0); MEAN CORPUSCULAR HGB CONC 32.3 G/dL (31.0-37.0); MEAN CORPUSCULAR VOLUME 93 fL (80-100); MONOCYTES % (AUTO) 13.2 % (2.0-9.0); NEUTROPHILS # (AUTO) 10.7 K/uL (1.8-7.7); NEUTROPHILS % (AUTO) 71.8 % (40.0-70.0); PLATELET COUNT (AUTO) 467 K/uL (150-450); RED BLOOD CELL COUNT(AUTO) 3.33 MIL/uL (4.50-5.90); RED CELL DISTRIBUTION WIDTH 17.3 % (11.5-14.5)
[2022-08-12 06:56] LABS: CALCIUM, TOTAL 9.2 mg/dL (8.8-10.5); CREATININE 4.58 mg/dL (0.60-1.30); POTASSIUM 3.3 mmol/L (3.5-5.1)
[2022-08-12 07:25] VITALS: BP 111/70
[2022-08-12] MEDS: AMINO ACIDS/PROTEIN HYDROLYS 30 ML TUBE PO SCH ×3 (08:00→18:12)
[2022-08-12] MEDS: ATORVASTATIN CALCIUM 40 MG TABLET PO SCH (09:56)
[2022-08-12] MEDS: ASPIRIN 81 MG CHEWABLE TABLET PO SCH (09:57)
[2022-08-12] MEDS: METOCLOPRAMIDE HCL 5 MG/ML 2 ML VIAL IVP SCH ×2 (09:58→22:17)
[2022-08-12] MEDS: FAMOTIDINE 20 MG TABLET PO SCH (09:58)
[2022-08-12] MEDS: CLOPIDOGREL BISULFATE 75 MG TABLET NG SCH (09:58)
[2022-08-12] MEDS: DOCUSATE SODIUM 100 MG CAPSULE PO SCH ×2 (09:59→22:18)
[2022-08-12] MEDS: CALCITRIOL 0.25 MCG CAPSULE PO SCH (09:59)
[2022-08-12] MEDS: FOLIC ACID/VIT B COMPLEX AND C TABLET PO SCH (09:59)
[2022-08-12] MEDS: SEVELAMER CARBONATE 800 MG POWDER PACKET NG SCH ×3 (10:00→18:11)
[2022-08-12] MEDS ORDERED: AMIODARONE HCL 750 MG in DEXTROSE 5%-WATER 485 ML IV SCH (10:30)
[2022-08-12 11:20] VITALS: BP 139/66
[2022-08-12] MEDS ORDERED: SODIUM CHLORIDE 0.9% 250 ML IV ONE (13:53)
[2022-08-12 16:11] VITALS: BP 140/70
[2022-08-12 20:24] VITALS: BP 159/71
[2022-08-12] MEDS: METOPROLOL TARTRATE 25 MG TABLET PO SCH (22:17)
[2022-08-13] MEDS: HEPARIN SODIUM,PORCINE 5,000 UNITS/ML VIAL SQ SCH ×3 (00:44→17:17)
[2022-08-13 00:45] VITALS: BP 159/83
[2022-08-13] MEDS: PIPERACILLIN SODIUM/TAZOBACTAM 2.25 GM in DEXTROSE 5%-WATER 50 ML IV SCH ×3 (02:00→17:16)
[2022-08-13 05:56] LABS: GLUCOMETER DEV NAME(LOC) 5S.2B; GLUCOSE,POINT OF CARE 113 MG/DL (70-110)
[2022-08-13 05:57] LABS: GLUCOMETER DEV NAME(LOC) 5S.2B; GLUCOSE,POINT OF CARE 118 MG/DL (70-110)
[2022-08-13 07:05] LABS: BASOPHILS % (AUTO) 1.2 % (0.0-2.0); EOSINOPHILS % (AUTO) 0.7 % (1.0-6.0); HEMATOCRIT 33.3 % (41-53); HEMOGLOBIN 10.7 g/dL (13.5-17.5); LYMPHOCYTES # (AUTO) 1.5 K/uL (1.0-4.8); MEAN CORPUSCULAR HEMOGLOBIN 29.9 pg (26.0-34.0); MEAN CORPUSCULAR HGB CONC 32.1 G/dL (31.0-37.0); MEAN CORPUSCULAR VOLUME 93 fL (80-100); MONOCYTES # (AUTO) 1.7 K/uL (0.1-1.0); MONOCYTES % (AUTO) 10.2 % (2.0-9.0); NEUTROPHILS # (AUTO) 13.2 K/uL (1.8-7.7); NEUTROPHILS % (AUTO) 78.9 % (40.0-70.0); PLATELET COUNT (AUTO) 445 K/uL (150-450); RED BLOOD CELL COUNT(AUTO) 3.58 MIL/uL (4.50-5.90); RED CELL DISTRIBUTION WIDTH 17.2 % (11.5-14.5)
[2022-08-13 07:17] VITALS: BP 151/80
[2022-08-13 07:22] LABS: ALBUMIN 1.9 g/dL (3.4-5.0); BILIRUBIN,TOTAL 0.6 mg/dL (0.1-1.0); CALCIUM, TOTAL 9.4 mg/dL (8.8-10.5); CREATININE 6.37 mg/dL (0.60-1.30); POTASSIUM 3.4 mmol/L (3.5-5.1); TOTAL PROTEIN, SERUM 7.6 g/dL (6.4-8.2)
[2022-08-13 07:30] VITALS: BP 170/83
[2022-08-13 07:31] LABS: MAGNESIUM 2.1 mg/dL (1.80-2.40); PHOSPHORUS 4.7 mg/dL (2.5-4.9)
[2022-08-13] MEDS: AMINO ACIDS/PROTEIN HYDROLYS 30 ML TUBE PO SCH ×3 (08:00→19:56)
[2022-08-13] MEDS ORDERED: VANCOMYCIN 1GM/WATER(PEG/NADA) 200 ML IV PRN (08:00)
[2022-08-13 08:16] LABS: GLUCOMETER DEV NAME(LOC) 5S.1B; GLUCOSE,POINT OF CARE 102 MG/DL (70-110)
[2022-08-13 08:16] LABS: GLUCOMETER DEV NAME(LOC) 5S.1B; GLUCOSE,POINT OF CARE 106 MG/DL (70-110)
[2022-08-13] MEDS: SEVELAMER CARBONATE 800 MG POWDER PACKET NG SCH ×3 (11:04→19:56)
[2022-08-13] MEDS: ATORVASTATIN CALCIUM 40 MG TABLET PO SCH (11:04)
[2022-08-13] MEDS: ASPIRIN 81 MG CHEWABLE TABLET PO SCH (11:05)
[2022-08-13] MEDS: CALCITRIOL 0.25 MCG CAPSULE PO SCH (11:05)
[2022-08-13] MEDS: METOCLOPRAMIDE HCL 5 MG/ML 2 ML VIAL IVP SCH ×2 (11:05→20:54)
[2022-08-13] MEDS: FOLIC ACID/VIT B COMPLEX AND C TABLET PO SCH (11:05)
[2022-08-13] MEDS: METOPROLOL TARTRATE 25 MG TABLET PO SCH ×2 (11:06→20:55)
[2022-08-13] MEDS: CLOPIDOGREL BISULFATE 75 MG TABLET NG SCH (11:06)
[2022-08-13] MEDS: FAMOTIDINE 20 MG TABLET PO SCH (11:06)
[2022-08-13] MEDS: DOCUSATE SODIUM 100 MG CAPSULE PO SCH ×2 (11:06→20:52)
[2022-08-13 12:21] VITALS: BP 148/79
[2022-08-13 15:30] VITALS: BP 156/74
[2022-08-13 20:06] VITALS: BP 156/80
[2022-08-14] VITALS (14 sets, daily range): BP systolic 101–171; BP diastolic 57–92
[2022-08-14] MEDS: HEPARIN SODIUM,PORCINE 5,000 UNITS/ML VIAL SQ SCH ×3 (00:15→16:13)
[2022-08-14] MEDS: PIPERACILLIN SODIUM/TAZOBACTAM 2.25 GM in DEXTROSE 5%-WATER 50 ML IV SCH ×3 (01:40→18:03)
[2022-08-14 01:51] LABS: GLUCOMETER DEV NAME(LOC) 5S.2B; GLUCOSE,POINT OF CARE 107 MG/DL (70-110)
[2022-08-14 07:03] LABS: BASOPHILS % (AUTO) 0.9 % (0.0-2.0); EOSINOPHILS % (AUTO) 0.7 % (1.0-6.0); HEMATOCRIT 33.9 % (41-53); HEMOGLOBIN 10.9 g/dL (13.5-17.5); LYMPHOCYTES # (AUTO) 1.4 K/uL (1.0-4.8); LYMPHOCYTES % (AUTO) 10.3 % (22.0-44.0); MEAN CORPUSCULAR HEMOGLOBIN 29.7 pg (26.0-34.0); MEAN CORPUSCULAR HGB CONC 32.2 G/dL (31.0-37.0); MEAN CORPUSCULAR VOLUME 92 fL (80-100); MONOCYTES # (AUTO) 1.5 K/uL (0.1-1.0); MONOCYTES % (AUTO) 11.5 % (2.0-9.0); NEUTROPHILS # (AUTO) 10.1 K/uL (1.8-7.7); NEUTROPHILS % (AUTO) 76.6 % (40.0-70.0); PLATELET COUNT (AUTO) 418 K/uL (150-450); RED BLOOD CELL COUNT(AUTO) 3.67 MIL/uL (4.50-5.90); RED CELL DISTRIBUTION WIDTH 17.9 % (11.5-14.5)
[2022-08-14 07:21] LABS: ALBUMIN 1.7 g/dL (3.4-5.0); BILIRUBIN,TOTAL 0.6 mg/dL (0.1-1.0); CALCIUM, TOTAL 9.2 mg/dL (8.8-10.5); CREATININE 7.83 mg/dL (0.60-1.30); POTASSIUM 3.6 mmol/L (3.5-5.1); TOTAL PROTEIN, SERUM 7.3 g/dL (6.4-8.2); VANCOMYCIN,RANDOM 14.5 mcg/mL (25.0-50.0)
[2022-08-14] MEDS: AMINO ACIDS/PROTEIN HYDROLYS 30 ML TUBE PO SCH ×3 (08:00→18:03)
[2022-08-14] MEDS: SEVELAMER CARBONATE 800 MG POWDER PACKET NG SCH ×3 (08:00→18:03)
[2022-08-14] MEDS: METOPROLOL TARTRATE 25 MG TABLET PO SCH ×2 (09:00→20:20)
[2022-08-14] MEDS: CALCITRIOL 0.25 MCG CAPSULE PO SCH (09:00)
[2022-08-14] MEDS: METOCLOPRAMIDE HCL 5 MG/ML 2 ML VIAL IVP SCH ×2 (09:00→20:21)
[2022-08-14] MEDS: FOLIC ACID/VIT B COMPLEX AND C TABLET PO SCH (09:00)
[2022-08-14] MEDS: CLOPIDOGREL BISULFATE 75 MG TABLET NG SCH (09:00)
[2022-08-14] MEDS: DOCUSATE SODIUM 100 MG CAPSULE PO SCH ×2 (09:00→20:16)
[2022-08-14] MEDS: FAMOTIDINE 20 MG TABLET PO SCH (09:00)
[2022-08-14] MEDS: EPOETIN ALFA 10,000 UNITS/ML VIAL SQ SCH (13:00)
[2022-08-14] MEDS: ATORVASTATIN CALCIUM 40 MG TABLET PO SCH (13:00)
[2022-08-14] MEDS ORDERED: HEPARIN SODIUM,PORCINE 1,000 UNITS/ML VIAL IVCATH ONE ×2 (13:00)
[2022-08-14] MEDS: ASPIRIN 81 MG CHEWABLE TABLET PO SCH (13:30)
[2022-08-14] MEDS: MetroNIDAZOLE 500 MG TABLET PO SCH ×2 (16:00→20:42)
[2022-08-14] MEDS: CefTAZidime PENTAHYDRATE 1 GM in DEXTROSE 5%-WATER 50 ML IV SCH ×2 (16:14→16:29)
[2022-08-14] MEDS ORDERED: HEPARIN SODIUM,PORCINE 1,000 UNITS/ML VIAL IVP ONE (16:39)
[2022-08-14] MEDS ORDERED: VANCOMYCIN 1GM/WATER(PEG/NADA) 200 ML IV ONE (17:00)
[2022-08-15] VITALS (15 sets, daily range): BP systolic 112–205; BP diastolic 52–94
[2022-08-15] MEDS: HEPARIN SODIUM,PORCINE 5,000 UNITS/ML VIAL SQ SCH ×3 (00:45→15:50)
[2022-08-15] MEDS: PIPERACILLIN SODIUM/TAZOBACTAM 2.25 GM in DEXTROSE 5%-WATER 50 ML IV SCH ×2 (00:46→09:00)
[2022-08-15] MEDS ORDERED: IODIXANOL 320 MG/ML 50 ML VIAL ONE (06:55)
[2022-08-15] MEDS ORDERED: IODIXANOL 320 MG/ML 150 ML VIAL ONE (06:56)
[2022-08-15] MEDS ORDERED: SODIUM BICARBONATE 50 MEQ/50 ML VIAL ONE (06:56)
[2022-08-15] MEDS ORDERED: LIDOCAINE/PF 1% 30 ML VIAL ONE (06:56)
[2022-08-15] MEDS ORDERED: IODIXANOL 320 MG/ML 100 ML VIAL ONE (06:56)
[2022-08-15] MEDS ORDERED: HEPARIN SODIUM 1000 UNITS/NS 1,000 ML ONE (06:56)
[2022-08-15] MEDS ORDERED: MIDAZOLAM HCL 2 MG/2 ML VIAL ONE ×2 (07:45→09:09)
[2022-08-15] MEDS ORDERED: FentaNYL CITRATE PF 100 MCG/2 ML VIAL ONE (07:45)
[2022-08-15] MEDS: AMINO ACIDS/PROTEIN HYDROLYS 30 ML TUBE PO SCH ×2 (08:00→12:00)
[2022-08-15] MEDS: SEVELAMER CARBONATE 800 MG POWDER PACKET NG SCH ×3 (08:00→18:09)
[2022-08-15] MEDS ORDERED: HEPARIN SODIUM 1000 UNITS/NS 1,000 ML IARTER ONE (08:45)
[2022-08-15] MEDS ORDERED: LIDOCAINE 1% 30 ML/SOD BICARB 8.4% 4 ML SQ ONE (08:45)
[2022-08-15] MEDS ORDERED: FentaNYL CITRATE PF 100 MCG/2 ML VIAL IVP ONE ×4 (08:45→10:15)
[2022-08-15] MEDS ORDERED: HydrALAZINE HCL 20 MG/ML VIAL IVP ONE (08:45)
[2022-08-15] MEDS ORDERED: HEPARIN SODIUM,PORCINE 1,000 UNITS/ML 10 ML VIAL IVP ONE (08:45)
[2022-08-15] MEDS ORDERED: SODIUM CHLORIDE 0.9% 500 ML IV ONE (08:45)
[2022-08-15] MEDS ORDERED: IODIXANOL 320 MG/ML 150 ML VIAL IARTER ONE (08:45)
[2022-08-15] MEDS ORDERED: MIDAZOLAM HCL 2 MG/2 ML VIAL IVP ONE ×4 (08:45→10:15)
[2022-08-15] MEDS ORDERED: NITROGLYCERIN 50 MG/D5% WATER 250 ML ONE (08:47)
[2022-08-15] MEDS: FOLIC ACID/VIT B COMPLEX AND C TABLET PO SCH (09:00)
[2022-08-15] MEDS: CALCITRIOL 0.25 MCG CAPSULE PO SCH (09:00)
[2022-08-15] MEDS: METOPROLOL TARTRATE 25 MG TABLET PO SCH ×2 (09:00→20:02)
[2022-08-15] MEDS: CLOPIDOGREL BISULFATE 75 MG TABLET NG SCH (09:00)
[2022-08-15] MEDS: METOCLOPRAMIDE HCL 5 MG/ML 2 ML VIAL IVP SCH ×2 (09:00→20:02)
[2022-08-15] MEDS: DOCUSATE SODIUM 100 MG CAPSULE PO SCH ×2 (09:00→20:01)
[2022-08-15] MEDS: ASPIRIN 81 MG CHEWABLE TABLET PO SCH (09:00)
[2022-08-15] MEDS: MetroNIDAZOLE 500 MG TABLET PO SCH ×3 (09:00→20:03)
[2022-08-15] MEDS: ATORVASTATIN CALCIUM 40 MG TABLET PO SCH (09:00)
[2022-08-15] MEDS: FAMOTIDINE 20 MG TABLET PO SCH (09:00)
[2022-08-15] MEDS ORDERED: PROTAMINE SULFATE 10 MG/ML 5 ML VIAL ONE (10:04)
[2022-08-15] MEDS ORDERED: PROTAMINE SULFATE 10 MG/ML 5 ML VIAL IVP ONE (10:15)
[2022-08-15] MEDS ORDERED: CLOPIDOGREL BISULFATE 75 MG TABLET ONE (10:19)
[2022-08-15] MEDS: CLOPIDOGREL BISULFATE 75 MG TABLET PO ONE ×2 (10:42→10:52)
[2022-08-15 22:53] LABS: C.DIFF GDH ANTIGEN, Stool Negative (Negative); C.DIFF TOXINS A&B, Stool Negative (Negative)
[2022-08-16 01:07] VITALS: BP 155/69
[2022-08-16 02:11] LABS: GLUCOMETER DEV NAME(LOC) 5S.1B; GLUCOSE,POINT OF CARE 92 MG/DL (70-110)
[2022-08-16 02:11] LABS: GLUCOMETER DEV NAME(LOC) 5S.1B; GLUCOSE,POINT OF CARE 99 MG/DL (70-110)
[2022-08-16] MEDS ORDERED: SODIUM CHLORIDE 0.9% 1,000 ML ONE ×2 (05:55→06:19)
[2022-08-16] MEDS ORDERED: BUPIVACAINE HCL/PF 0.5% 30 ML VIAL ONE (06:16)
[2022-08-16] MEDS ORDERED: LIDOCAINE/PF 1% 30 ML VIAL ONE (06:16)
[2022-08-16] MEDS ORDERED: SODIUM CHLORIDE 0.9% 1,000 ML IV ONE (06:30)
[2022-08-16] MEDS ORDERED: ETHYL ALCOHOL 62% ANTISEPTIC NASAL SANITIZER 0.6 ML AMPUL NASAL ONE (06:30)
[2022-08-16] MEDS ORDERED: GELATIN SPONGE,ABSORBABLE 100 MM TP ONE (06:34)
[2022-08-16] MEDS ORDERED: THROMBIN, BOVINE 20000 UNITS/VIAL POWDER TP ONE (06:35)
[2022-08-16] MEDS ORDERED: GELATIN SPONGE,ABSORBABLE 50 MM TP ONE (06:35)
[2022-08-16] MEDS ORDERED: SODIUM CL IRRIG SOLN BAG 3,000 ML IRRIG ONE (06:44)
[2022-08-16] MEDS ORDERED: MEPERIDINE-PF 25 MG/ML VIAL IVP PRN (06:45)
[2022-08-16] MEDS ORDERED: FentaNYL CITRATE PF 100 MCG/2 ML VIAL IVP PRN (06:45)
[2022-08-16] MEDS ORDERED: HYDROmorphone HCL 2 MG/ML SYRINGE IVP PRN (06:45)
[2022-08-16] MEDS: VANCOMYCIN HCL 1 GM/VIAL ONE ×2 (07:20→07:45)
[2022-08-16] MEDS: HEPARIN SODIUM,PORCINE 5,000 UNITS/ML VIAL SQ SCH ×3 (08:00→17:40)
[2022-08-16] MEDS: AMINO ACIDS/PROTEIN HYDROLYS 30 ML TUBE PO SCH ×3 (08:00→17:49)
[2022-08-16] MEDS: OXYGEN THERAPY IH SCH ×2 (08:00→20:00)
[2022-08-16] MEDS: SEVELAMER CARBONATE 800 MG POWDER PACKET NG SCH ×3 (08:00→17:40)
[2022-08-16] MEDS: CALCITRIOL 0.25 MCG CAPSULE PO SCH (09:00)
[2022-08-16] MEDS: EPOETIN ALFA 10,000 UNITS/ML VIAL SQ SCH (09:00)
[2022-08-16] MEDS: METOPROLOL TARTRATE 25 MG TABLET PO SCH ×2 (09:00→22:02)
[2022-08-16] MEDS: FOLIC ACID/VIT B COMPLEX AND C TABLET PO SCH (09:00)
[2022-08-16] MEDS: DOCUSATE SODIUM 100 MG CAPSULE PO SCH ×2 (09:00→21:00)
[2022-08-16] MEDS ORDERED: -POST HEMODIALYSIS NOTE- MISC SCH (09:00)
[2022-08-16] MEDS: ATORVASTATIN CALCIUM 40 MG TABLET PO SCH (09:00)
[2022-08-16] MEDS: ASPIRIN 81 MG CHEWABLE TABLET PO SCH (09:00)
[2022-08-16] MEDS: METOCLOPRAMIDE HCL 5 MG/ML 2 ML VIAL IVP SCH ×2 (09:00→22:02)
[2022-08-16] MEDS: CLOPIDOGREL BISULFATE 75 MG TABLET PO SCH (09:00)
[2022-08-16] MEDS: MetroNIDAZOLE 500 MG TABLET PO SCH ×3 (09:00→22:02)
[2022-08-16] MEDS: FAMOTIDINE 20 MG TABLET PO SCH (09:00)
[2022-08-16 09:21] LABS: GLUCOMETER DEV NAME(LOC) 5S.2B; GLUCOSE,POINT OF CARE 111 MG/DL (70-110)
[2022-08-16 12:30] VITALS: BP 170/76
[2022-08-16 14:26] LABS: CALCIUM, TOTAL 9.1 mg/dL (8.8-10.5); CREATININE 7.58 mg/dL (0.60-1.30); POTASSIUM 3.5 mmol/L (3.5-5.1)
[2022-08-16 16:26] VITALS: BP 139/18
[2022-08-16] MEDS: CefTAZidime PENTAHYDRATE 1 GM in DEXTROSE 5%-WATER 50 ML IV SCH (17:40)
[2022-08-16 19:43] VITALS: BP 149/85
[2022-08-16 20:56] LABS: GLUCOMETER DEV NAME(LOC) 5S.2B; GLUCOSE,POINT OF CARE 79 MG/DL (70-110)
[2022-08-16] MEDS ORDERED: GABAPENTIN 100 MG CAPSULE PO ONE (22:00)
[2022-08-16] MEDS: ACETAMINOPHEN 325 MG TABLET PO PRN (22:01)
[2022-08-16 23:56] VITALS: BP 155/74
[2022-08-17] VITALS (13 sets, daily range): BP systolic 94–173; BP diastolic 53–83
[2022-08-17] MEDS: HEPARIN SODIUM,PORCINE 5,000 UNITS/ML VIAL SQ SCH ×4 (00:17→23:36)
[2022-08-17 01:51] LABS: GLUCOMETER DEV NAME(LOC) 5S.1B; GLUCOSE,POINT OF CARE 81 MG/DL (70-110)
[2022-08-17 07:11] LABS: GLUCOMETER DEV NAME(LOC) 5S.1B; GLUCOSE,POINT OF CARE 79 MG/DL (70-110)
[2022-08-17] MEDS: SEVELAMER CARBONATE 800 MG POWDER PACKET NG SCH ×3 (08:00→17:27)
[2022-08-17] MEDS: OXYGEN THERAPY IH SCH ×2 (08:00→20:00)
[2022-08-17] MEDS: AMINO ACIDS/PROTEIN HYDROLYS 30 ML TUBE PO SCH ×3 (08:00→17:27)
[2022-08-17] MEDS: FOLIC ACID/VIT B COMPLEX AND C TABLET PO SCH (09:00)
[2022-08-17] MEDS: ASPIRIN 81 MG CHEWABLE TABLET PO SCH (09:00)
[2022-08-17] MEDS: MetroNIDAZOLE 500 MG TABLET PO SCH ×3 (09:00→21:08)
[2022-08-17] MEDS: FAMOTIDINE 20 MG TABLET PO SCH (09:00)
[2022-08-17] MEDS: METOCLOPRAMIDE HCL 5 MG/ML 2 ML VIAL IVP SCH ×2 (09:00→21:07)
[2022-08-17] MEDS: METOPROLOL TARTRATE 25 MG TABLET PO SCH ×2 (09:00→21:07)
[2022-08-17] MEDS: ATORVASTATIN CALCIUM 40 MG TABLET PO SCH (09:00)
[2022-08-17] MEDS: CLOPIDOGREL BISULFATE 75 MG TABLET PO SCH (09:00)
[2022-08-17] MEDS: DOCUSATE SODIUM 100 MG CAPSULE PO SCH ×2 (09:00→21:00)
[2022-08-17] MEDS: CALCITRIOL 0.25 MCG CAPSULE PO SCH (09:00)
[2022-08-17 17:26] LABS: GLUCOMETER DEV NAME(LOC) 5S.1B; GLUCOSE,POINT OF CARE 88 MG/DL (70-110)
[2022-08-17] MEDS: ACETAMINOPHEN/CODEINE 300-30 MG TABLET PO PRN ×2 (17:35→23:35)
[2022-08-17 21:21] LABS: GLUCOMETER DEV NAME(LOC) 5S.2B; GLUCOSE,POINT OF CARE 64 MG/DL (70-110)
[2022-08-17 22:26] LABS: GLUCOMETER DEV NAME(LOC) 5S.1B; GLUCOSE,POINT OF CARE 69 MG/DL (70-110)
[2022-08-17 22:26] LABS: GLUCOMETER DEV NAME(LOC) 5S.2B; GLUCOSE,POINT OF CARE 165 MG/DL (70-110)
[2022-08-18] VITALS (9 sets, daily range): BP systolic 114–168; BP diastolic 43–74
[2022-08-18] MEDS: AMINO ACIDS/PROTEIN HYDROLYS 30 ML TUBE PO SCH ×4 (08:00→17:06)
[2022-08-18] MEDS: OXYGEN THERAPY IH SCH ×2 (08:00→20:00)
[2022-08-18] MEDS: DOCUSATE SODIUM 100 MG CAPSULE PO SCH ×2 (09:00→21:00)
[2022-08-18] MEDS: METOPROLOL TARTRATE 25 MG TABLET PO SCH ×2 (09:00→22:32)
[2022-08-18] MEDS: FAMOTIDINE 20 MG TABLET PO SCH (10:28)
[2022-08-18] MEDS: HEPARIN SODIUM,PORCINE 5,000 UNITS/ML VIAL SQ SCH ×3 (10:28→23:16)
[2022-08-18] MEDS: CALCITRIOL 0.25 MCG CAPSULE PO SCH (10:29)
[2022-08-18] MEDS: CLOPIDOGREL BISULFATE 75 MG TABLET PO SCH (10:29)
[2022-08-18] MEDS: ATORVASTATIN CALCIUM 40 MG TABLET PO SCH (10:29)
[2022-08-18] MEDS: APIXABAN 2.5 MG TABLET PO SCH ×2 (10:29→22:32)
[2022-08-18] MEDS: METOCLOPRAMIDE HCL 5 MG/ML 2 ML VIAL IVP SCH ×2 (10:29→22:33)
[2022-08-18] MEDS: SEVELAMER CARBONATE 800 MG POWDER PACKET NG SCH ×4 (10:30→17:06)
[2022-08-18] MEDS: FOLIC ACID/VIT B COMPLEX AND C TABLET PO SCH (10:30)
[2022-08-18] MEDS: MetroNIDAZOLE 500 MG TABLET PO SCH ×3 (10:30→22:32)
[2022-08-18] MEDS: EPOETIN ALFA 10,000 UNITS/ML VIAL SQ SCH (10:32)
[2022-08-18 11:20] LABS: BASOPHILS % (AUTO) 0.7 % (0.0-2.0); EOSINOPHILS % (AUTO) 1.1 % (1.0-6.0); HEMATOCRIT 34.7 % (41-53); LYMPHOCYTES # (AUTO) 1.6 K/uL (1.0-4.8); MEAN CORPUSCULAR HEMOGLOBIN 29.2 pg (26.0-34.0); MEAN CORPUSCULAR HGB CONC 31.7 G/dL (31.0-37.0); MEAN CORPUSCULAR VOLUME 92 fL (80-100); MONOCYTES # (AUTO) 1.9 K/uL (0.1-1.0); MONOCYTES % (AUTO) 8.6 % (2.0-9.0); NEUTROPHILS # (AUTO) 18.3 K/uL (1.8-7.7); NEUTROPHILS % (AUTO) 82.6 % (40.0-70.0); PLATELET COUNT (AUTO) 338 K/uL (150-450); RED BLOOD CELL COUNT(AUTO) 3.78 MIL/uL (4.50-5.90); RED CELL DISTRIBUTION WIDTH 17.9 % (11.5-14.5)
[2022-08-18 11:48] LABS: CALCIUM, TOTAL 9.2 mg/dL (8.8-10.5); CREATININE 5.03 mg/dL (0.60-1.30); MAGNESIUM 1.9 mg/dL (1.80-2.40); PHOSPHORUS 3.9 mg/dL (2.5-4.9); POTASSIUM 3.4 mmol/L (3.5-5.1)
[2022-08-18] MEDS: INSULIN LISPRO 100 UNITS/ML SQ PRN (12:23)
[2022-08-18] MEDS ORDERED: VANCOMYCIN 1GM/WATER(PEG/NADA) 200 ML IV ONE (13:00)
[2022-08-18] MEDS ORDERED: CefTAZidime PENTAHYDRATE 2 GM in DEXTROSE 5%-WATER 50 ML IV SCH (16:00)
[2022-08-18 20:11] LABS: GLUCOMETER DEV NAME(LOC) 5S.1B; GLUCOSE,POINT OF CARE 160 MG/DL (70-110)
[2022-08-18 20:11] LABS: GLUCOMETER DEV NAME(LOC) 5S.1B; GLUCOSE,POINT OF CARE 108 MG/DL (70-110)
[2022-08-18 20:16] LABS: GLUCOMETER DEV NAME(LOC) 5S.2B; GLUCOSE,POINT OF CARE 91 MG/DL (70-110)
[2022-08-19 00:42] VITALS: BP 132/68
[2022-08-19 05:16] LABS: GLUCOMETER DEV NAME(LOC) 5N.1C; GLUCOSE,POINT OF CARE 94 MG/DL (70-110)
[2022-08-19 05:17] LABS: GLUCOMETER DEV NAME(LOC) 5N.1C; GLUCOSE,POINT OF CARE 101 MG/DL (70-110)
[2022-08-19 05:37] VITALS: BP 128/70
[2022-08-19 06:56] LABS: GLUCOMETER DEV NAME(LOC) 5N.1C; GLUCOSE,POINT OF CARE 78 MG/DL (70-110)
[2022-08-19 07:12] LABS: BASOPHILS % (AUTO) 1.3 % (0.0-2.0); EOSINOPHILS % (AUTO) 2.1 % (1.0-6.0); HEMATOCRIT 35.9 % (41-53); HEMOGLOBIN 11.5 g/dL (13.5-17.5); LYMPHOCYTES # (AUTO) 2.4 K/uL (1.0-4.8); LYMPHOCYTES % (AUTO) 16.8 % (22.0-44.0); MEAN CORPUSCULAR HEMOGLOBIN 29.8 pg (26.0-34.0); MEAN CORPUSCULAR HGB CONC 32.2 G/dL (31.0-37.0); MEAN CORPUSCULAR VOLUME 93 fL (80-100); MONOCYTES # (AUTO) 1.7 K/uL (0.1-1.0); NEUTROPHILS # (AUTO) 9.8 K/uL (1.8-7.7); NEUTROPHILS % (AUTO) 67.8 % (40.0-70.0); PLATELET COUNT (AUTO) 340 K/uL (150-450); RED BLOOD CELL COUNT(AUTO) 3.87 MIL/uL (4.50-5.90); RED CELL DISTRIBUTION WIDTH 17.6 % (11.5-14.5)
[2022-08-19 07:37] VITALS: BP 126/60
[2022-08-19] MEDS: OXYGEN THERAPY IH SCH (08:00)
[2022-08-19] MEDS: DOCUSATE SODIUM 100 MG CAPSULE PO SCH ×2 (09:00→21:00)
[2022-08-19] MEDS: AMINO ACIDS/PROTEIN HYDROLYS 30 ML TUBE PO SCH ×3 (10:00→17:47)
[2022-08-19] MEDS: CALCITRIOL 0.25 MCG CAPSULE PO SCH (10:38)
[2022-08-19] MEDS: METOPROLOL TARTRATE 25 MG TABLET PO SCH ×2 (10:38→21:19)
[2022-08-19] MEDS: SEVELAMER CARBONATE 800 MG POWDER PACKET NG SCH ×3 (10:38→17:47)
[2022-08-19] MEDS: FOLIC ACID/VIT B COMPLEX AND C TABLET PO SCH (10:38)
[2022-08-19] MEDS: APIXABAN 2.5 MG TABLET PO SCH ×2 (10:39→21:19)
[2022-08-19] MEDS: FAMOTIDINE 20 MG TABLET PO SCH (10:39)
[2022-08-19] MEDS: CLOPIDOGREL BISULFATE 75 MG TABLET PO SCH (10:39)
[2022-08-19] MEDS: ATORVASTATIN CALCIUM 40 MG TABLET PO SCH (10:39)
[2022-08-19] MEDS: MetroNIDAZOLE 500 MG TABLET PO SCH ×3 (10:40→21:18)
[2022-08-19] MEDS: HEPARIN SODIUM,PORCINE 5,000 UNITS/ML VIAL SQ SCH ×3 (10:41→23:10)
[2022-08-19] MEDS: METOCLOPRAMIDE HCL 5 MG/ML 2 ML VIAL IVP SCH ×2 (10:41→21:18)
[2022-08-19] MEDS ORDERED: HEPARIN SODIUM,PORCINE 1,000 UNITS/ML VIAL IVP ONE (16:31)
[2022-08-19 20:26] LABS: GLUCOMETER DEV NAME(LOC) 5N.1C; GLUCOSE,POINT OF CARE 101 MG/DL (70-110)
[2022-08-19 20:54] VITALS: BP 144/76
[2022-08-19] MEDS: INSULIN LISPRO 100 UNITS/ML SQ PRN (21:17)
[2022-08-20 00:51] VITALS: BP 135/69
[2022-08-20 05:36] VITALS: BP 155/77
[2022-08-20 06:27] LABS: GLUCOMETER DEV NAME(LOC) 5S.2B; GLUCOSE,POINT OF CARE 125 MG/DL (70-110)
[2022-08-20 07:31] VITALS: BP 148/73
[2022-08-20] MEDS: AMINO ACIDS/PROTEIN HYDROLYS 30 ML TUBE PO SCH ×3 (08:12→17:35)
[2022-08-20] MEDS: FOLIC ACID/VIT B COMPLEX AND C TABLET PO SCH (08:14)
[2022-08-20] MEDS: CALCITRIOL 0.25 MCG CAPSULE PO SCH (08:14)
[2022-08-20] MEDS: ATORVASTATIN CALCIUM 40 MG TABLET PO SCH (08:15)
[2022-08-20] MEDS: METOPROLOL TARTRATE 25 MG TABLET PO SCH ×2 (08:15→20:41)
[2022-08-20] MEDS: FAMOTIDINE 20 MG TABLET PO SCH (08:16)
[2022-08-20] MEDS: CLOPIDOGREL BISULFATE 75 MG TABLET PO SCH (08:17)
[2022-08-20] MEDS: HEPARIN SODIUM,PORCINE 5,000 UNITS/ML VIAL SQ SCH ×2 (08:19→17:31)
[2022-08-20] MEDS: APIXABAN 2.5 MG TABLET PO SCH ×2 (08:19→20:41)
[2022-08-20] MEDS: SEVELAMER CARBONATE 800 MG POWDER PACKET NG SCH ×3 (08:23→17:35)
[2022-08-20] MEDS: MetroNIDAZOLE 500 MG TABLET PO SCH ×3 (08:24→20:40)
[2022-08-20] MEDS: METOCLOPRAMIDE HCL 5 MG/ML 2 ML VIAL IVP SCH ×2 (08:24→20:42)
[2022-08-20] MEDS: DOCUSATE SODIUM 100 MG CAPSULE PO SCH ×2 (08:25→20:41)
[2022-08-20 11:26] VITALS: BP 138/68
[2022-08-20 14:36] LABS: GLUCOMETER DEV NAME(LOC) 5N.1C; GLUCOSE,POINT OF CARE 88 MG/DL (70-110)
[2022-08-20 14:36] LABS: GLUCOMETER DEV NAME(LOC) 5N.1C; GLUCOSE,POINT OF CARE 106 MG/DL (70-110)
[2022-08-20] MEDS: INSULIN LISPRO 100 UNITS/ML SQ PRN ×2 (17:46→20:47)
[2022-08-20 19:49] VITALS: BP 132/68
[2022-08-20 20:21] LABS: GLUCOMETER DEV NAME(LOC) 5S.2B; GLUCOSE,POINT OF CARE 169 MG/DL (70-110)
[2022-08-20 23:46] VITALS: BP 144/76
[2022-08-21] VITALS (14 sets, daily range): BP systolic 97–149; BP diastolic 47–87
[2022-08-21 05:36] LABS: GLUCOMETER DEV NAME(LOC) 5N.1C; GLUCOSE,POINT OF CARE 124 MG/DL (70-110)
[2022-08-21] MEDS: AMINO ACIDS/PROTEIN HYDROLYS 30 ML TUBE PO SCH ×2 (08:00→13:43)
[2022-08-21] MEDS: METOCLOPRAMIDE HCL 5 MG/ML 2 ML VIAL IVP SCH (09:00)
[2022-08-21] MEDS: EPOETIN ALFA 10,000 UNITS/ML VIAL SQ SCH (09:00)
[2022-08-21] MEDS: FAMOTIDINE 20 MG TABLET PO SCH (09:01)
[2022-08-21] MEDS: FOLIC ACID/VIT B COMPLEX AND C TABLET PO SCH (09:01)
[2022-08-21] MEDS: SEVELAMER CARBONATE 800 MG POWDER PACKET NG SCH ×2 (09:01→12:00)
[2022-08-21] MEDS: MetroNIDAZOLE 500 MG TABLET PO SCH (09:01)
[2022-08-21] MEDS: ATORVASTATIN CALCIUM 40 MG TABLET PO SCH (09:02)
[2022-08-21] MEDS: HEPARIN SODIUM,PORCINE 5,000 UNITS/ML VIAL SQ SCH ×2 (09:03)
[2022-08-21] MEDS: CALCITRIOL 0.25 MCG CAPSULE PO SCH (09:04)
[2022-08-21] MEDS: CLOPIDOGREL BISULFATE 75 MG TABLET PO SCH (09:04)
[2022-08-21] MEDS: METOPROLOL TARTRATE 25 MG TABLET PO SCH (09:04)
[2022-08-21] MEDS: APIXABAN 2.5 MG TABLET PO SCH (09:04)
[2022-08-21] MEDS: DOCUSATE SODIUM 100 MG CAPSULE PO SCH (09:05)
[2022-08-21 17:01] LABS: GLUCOMETER DEV NAME(LOC) 5S.1B; GLUCOSE,POINT OF CARE 110 MG/DL (70-110)
[2022-08-21] MEDS ORDERED: APIX2.5T PO ×5 (18:48→18:57)
[2022-08-21] MEDS ORDERED: HEPARIN SODIUM,PORCINE 1,000 UNITS/ML VIAL IVCATH ONE ×2 (19:00)
[2022-08-21] MEDS ORDERED: HEPARIN SODIUM,PORCINE 1,000 UNITS/ML VIAL IVP ONE (21:59)
[2022-08-22 02:27] LABS: GLUCOMETER DEV NAME(LOC) 5N.1C; GLUCOSE,POINT OF CARE 101 MG/DL (70-110)
== END 2022-08-21 22:00 | DRG 710 ==
LOC: EMS 08:38 → AHU 14:30 → 5S 16:40 → AHU 07-29 06:04 → ICU 07-29 12:00 → 5S 08-09 15:05
PROVIDERS: ADMIT Internal Medicine; ATTEND Internal Medicine
PROC: 5A1D70Z Performance of Urinary Filtration, Intermittent, Less than 6 Hours Per Day (ICD-10-PCS; 2022-07-28)
PROC: 5A1955Z Respiratory Ventilation, Greater than 96 Consecutive Hours (ICD-10-PCS; principal; 2022-07-29)
PROC: 0BH17EZ Insertion of Endotracheal Airway into Trachea, Via Natural or Artificial Opening (ICD-10-PCS; 2022-07-29)
PROC: 5A12012 Performance of Cardiac Output, Single, Manual (ICD-10-PCS; 2022-07-29)
PROC: 30233N1 Transfusion of Nonautologous Red Blood Cells into Peripheral Vein, Percutaneous Approach (ICD-10-PCS; 2022-07-31)
PROC: 5A1D70Z Performance of Urinary Filtration, Intermittent, Less than 6 Hours Per Day (ICD-10-PCS; 2022-07-31)
PROC: 4A00X4Z Measurement of Central Nervous Electrical Activity, External Approach (ICD-10-PCS; 2022-07-31)
PROC: 5A1D70Z Performance of Urinary Filtration, Intermittent, Less than 6 Hours Per Day (ICD-10-PCS; 2022-08-02)
PROC: 0BH17EZ Insertion of Endotracheal Airway into Trachea, Via Natural or Artificial Opening (ICD-10-PCS; 2022-08-03)
PROC: 5A1D70Z Performance of Urinary Filtration, Intermittent, Less than 6 Hours Per Day (ICD-10-PCS; 2022-08-04)
PROC: 5A1D70Z Performance of Urinary Filtration, Intermittent, Less than 6 Hours Per Day (ICD-10-PCS; 2022-08-07)
PROC: 5A1D70Z Performance of Urinary Filtration, Intermittent, Less than 6 Hours Per Day (ICD-10-PCS; 2022-08-09)
PROC: 4A023N7 Measurement of Cardiac Sampling and Pressure, Left Heart, Percutaneous Approach (ICD-10-PCS; 2022-08-11)
PROC: B2111ZZ Fluoroscopy of Multiple Coronary Arteries using Low Osmolar Contrast (ICD-10-PCS; 2022-08-11)
PROC: B2151ZZ Fluoroscopy of Left Heart using Low Osmolar Contrast (ICD-10-PCS; 2022-08-11)
PROC: 5A1D70Z Performance of Urinary Filtration, Intermittent, Less than 6 Hours Per Day (ICD-10-PCS; 2022-08-11)
PROC: 047L3Z1 Dilation of Left Femoral Artery using Drug-Coated Balloon, Percutaneous Approach (ICD-10-PCS; 2022-08-14)
PROC: B41D1ZZ Fluoroscopy of Aorta and Bilateral Lower Extremity Arteries using Low Osmolar Contrast (ICD-10-PCS; 2022-08-14)
PROC: 04CL3ZZ Extirpation of Matter from Left Femoral Artery, Percutaneous Approach (ICD-10-PCS; 2022-08-14)
PROC: 5A1D70Z Performance of Urinary Filtration, Intermittent, Less than 6 Hours Per Day (ICD-10-PCS; 2022-08-14)
PROC: 5A1D70Z Performance of Urinary Filtration, Intermittent, Less than 6 Hours Per Day (ICD-10-PCS; 2022-08-17)
PROC: 5A1D70Z Performance of Urinary Filtration, Intermittent, Less than 6 Hours Per Day (ICD-10-PCS; 2022-08-18)
PROC: 5A1D70Z Performance of Urinary Filtration, Intermittent, Less than 6 Hours Per Day (ICD-10-PCS; 2022-08-21)
DX: A41.9 Sepsis, unspecified organism (principal); J96.00 Acute respiratory failure, unspecified whether with hypoxia or hypercapnia; I46.9 Cardiac arrest, cause unspecified; G93.40 Encephalopathy, unspecified; J18.9 Pneumonia, unspecified organism; J44.0 Chronic obstructive pulmonary disease with (acute) lower respiratory infection; I70.262 Atherosclerosis of native arteries of extremities with gangrene, left leg; E11.52 Type 2 diabetes mellitus with diabetic peripheral angiopathy with gangrene; I12.0 Hypertensive chronic kidney disease with stage 5 chronic kidney disease or end stage renal disease; I21.A1 Myocardial infarction type 2; E87.20 Acidosis, unspecified; D63.1 Anemia in chronic kidney disease; D63.8 Anemia in other chronic diseases classified elsewhere; E78.00 Pure hypercholesterolemia, unspecified; F17.210 Nicotine dependence, cigarettes, uncomplicated; L97.529 Non-pressure chronic ulcer of other part of left foot with unspecified severity; E11.51 Type 2 diabetes mellitus with diabetic peripheral angiopathy without gangrene; E11.621 Type 2 diabetes mellitus with foot ulcer; N18.6 End stage renal disease; E11.40 Type 2 diabetes mellitus with diabetic neuropathy, unspecified; I25.10 Atherosclerotic heart disease of native coronary artery without angina pectoris; I48.0 Paroxysmal atrial fibrillation; R19.7 Diarrhea, unspecified; K76.0 Fatty (change of) liver, not elsewhere classified; D50.9 Iron deficiency anemia, unspecified; E83.39 Other disorders of phosphorus metabolism; N25.81 Secondary hyperparathyroidism of renal origin; F12.90 Cannabis use, unspecified, uncomplicated; E11.22 Type 2 diabetes mellitus with diabetic chronic kidney disease; Z79.899 Other long term (current) drug therapy; Z82.49 Family history of ischemic heart disease and other diseases of the circulatory system; Z99.2 Dependence on renal dialysis; I25.2 Old myocardial infarction; Z75.1 Person awaiting admission to adequate facility elsewhere; Z79.01 Long term (current) use of anticoagulants; Z79.02 Long term (current) use of antithrombotics/antiplatelets; Z79.82 Long term (current) use of aspirin; Z83.3 Family history of diabetes mellitus; Z99.11 Dependence on respirator [ventilator] status; Z79.84 Long term (current) use of oral hypoglycemic drugs
CPT/HCPCS: 36200; 36600; 37229; 70450; 71045; 71275; 74018; 75630; 75716; 75962; 80048; 80053; 80061; 80202; 82550; 82805; 82962; 83540; 83550; 83605; 83735; 83880; 84100; 84484; 85014; 85018; 85025; 85045; 85610; 85730; 86850; 86900; 86901; 86923; 87040; 87070; 87101; 87205; 87324; 87340; 87449; 88305; 88331; 88341; 88342; 90935; 92610; 93005; 93306; 93925; 93970; 94002; 94003; 94640; 95816; 97110; 97163; 97530; 99285; C1724; C2623; G0238; G0378; J0171; J0282; J0360; J0713; J0885; J1644; J2150; J2250; J2405; J2543; J2704; J2720; J2765; J3010; J3370; J3490; J7030; J7040; J7050; J7060; P9016; Q9967; 36415-L1; 36415-TC; J7613; Z7610